=== PATIENT | male | born 1995 | race Caucasian/White ===

== ENCOUNTER 2017-03-01 00:10 | Emergency (ER) | payer SELFPAY ==
[2017-03-01] MEDS ORDERED: Sodium Chloride 0.9% 1,000 ML IV ONE (00:28)
[2017-03-01] MEDS ORDERED: Sodium Chloride 0.9% 10 ML Syringe FLUSH PRN (00:28)
[2017-03-01] MEDS ORDERED: Sodium Chloride 0.9% 2.5 ML Syringe FLUSH PRN (00:28)
[2017-03-01] MEDS ORDERED: Ketorolac 30 MG/ML SDV IVPUSH ONE (00:28)
[2017-03-01] MEDS ORDERED: HYDROmorphone 2 MG/ML Syringe IVPUSH ONE (00:28)
[2017-03-01] MEDS ORDERED: Ondansetron 4 MG/2 ML SDV IVPUSH ONE (00:28)
--- NOTE | 2017-03-01 00:32 | EDM.PDOC ---
ED HPI GENERAL MEDICAL PROBLEM - General Chief Complaint: Flank Pain Stated Complaint: LOWER LEFT BACK PAIN Time Seen by Provider: 03/01/17 00:19 - History of Present Illness INITIAL COMMENTS - FREE TEXT/NARRATIVE: HISTORY AND PHYSICAL: History of present illness: The patient is a 21-year-old male was a history of a congenitally nonfunctional right kidney and presents with onset of left flank pain that started about 9 PM. Patient said it gradually started but he is never had anything like this before the pain has intensified. He says it now radiates to his right mid abdomen but not to his right lower abdomen or to his testicles. He has had no recent trauma no hematuria and no dysuria and no frequency. He has had no upper respiratory symptoms such as cough chest pain or shortness of breath and no fevers or chills. He did get nauseated with the pain and he did have an episode of vomiting. He took Tylenol for the pain and he thinks he may vomited that up. He has had normal bowel movements which are normally loose and diarrhea likely but that is not new or different. The patient has no GI history that he is aware of. He has not had any recent fevers and currently denies a fever. He says the pain is deep and boring. He has had no testicular pain or swelling and no recent trauma to the flank area. Patient had gallstones and a cholecystectomy in the past. The patient absolutely denies any midline back pain or any pain radiating to his buttocks or his legs. He has no lower back pain. Review of systems: As per history of present illness and below otherwise all systems reviewed and negative. Past medical history: As per history of present illness and as reviewed below otherwise noncontributory. Surgical history: As per history of present illness and as reviewed below otherwise noncontributory. Social history: No reported history of drug or alcohol abuse. Family history: As per history of present illness and as reviewed below otherwise noncontributory. Physical exam: Gen.: Well-developed thin man who is nontoxic and vital signs of an reviewed by me. He looks uncomfortable in the room holding his left side. HEENT: Atraumatic, normocephalic, negative for conjunctival pallor or scleral icterus, mucous membranes tacky, throat clear, neck supple, nontender, trachea midline. Lungs: Clear to auscultation, breath sounds equal bilaterally, chest nontender. Heart: S1S2, regular rate and rhythm no overt murmurs Abdomen: Soft, nondistended, there is some mild tenderness on deep palpation in the left mid and left upper abdomen areas without rebound or guarding. Bowel sounds are hypoactive. Negative for masses or hepatosplenomegaly. There is some left costovertebral tenderness. Pelvis: Stable nontender. Genitourinary: Deferred. Rectal: Deferred. Extremities: Atraumatic, negative for cords or calf pain. Neurovascular unremarkable. Neuro: Awake, alert, oriented. Cranial nerves II through XII unremarkable. Cerebellum unremarkable. Motor and sensory unremarkable throughout. Exam nonfocal. Diagnostics: UA urine culture CBC CMP amylase lipase CT scan of the abdomen and pelvis chest x-ray d-dimer Therapeutics: IV, IV fluids, Zofran, Toradol, Dilaudid I discussed the CT and the chest x-ray at length with the tele-radiologist and he says he sees absolutely nothing in that left retroperitoneal or left upper abdominal areas that would be causing the patient any discomfort. He does see some retrocrural lymph nodes that need to be followed up but they would not be causing the patient any discomfort. I discussed this conversation with the patient as well as family. In light of the complete normal workup I've advised close follow-up with primary care and will give him referrals for this. He recently relocated here from [place]. Advised on hydration rest and reasons to return to the ED Impression: Left flank pain with history of nonfunctional right kidney, improved etiology unclear Definitive disposition and diagnosis as appropriate pending reevaluation and review of above. left flank Pain Score (Numeric/FACES): 8 - Related Data Allergies Allergy/AdvReac Type Severity Reaction Status Date / Time amoxicillin Allergy Hives Verified 03/01/17 00:23 Penicillins Allergy Hives Verified 03/01/17 00:23 Home Meds: Home Meds . [No Known Home Meds] 03/01/17 [History] ED ROS GENERAL - Review of Systems Review Of Systems: ROS reveals no pertinent complaints other than HPI. ED EXAM, GENERAL - Physical Exam Exam: See Below (see dictation) Course - Vital Signs Last Recorded V/S: Last Vital Signs Temp 36.3 C 03/01/17 00:13 Pulse 66 03/01/17 01:45 Resp 18 03/01/17 01:45 BP 139/86 03/01/17 01:45 Pulse Ox 98 03/01/17 01:45 - Orders/Labs/Meds Orders: Active Orders 24 hr Category Date Time Status Abdomen Pelvis wo Cont [CT] Stat Exams 03/01/17 00:27 Taken Chest 2V [CR] Stat Exams 03/01/17 02:09 Taken CULTURE URINE [RM] Stat Lab 03/01/17 00:20 Received Sodium Chloride 0.9% [Saline Flush] Med 03/01/17 00:28 Active 10 ml FLUSH ASDIRECTED PRN Sodium Chloride 0.9% [Saline Flush] Med 03/01/17 00:28 Active 2.5 ml FLUSH ASDIRECTED PRN Saline Lock Insert [OM.PC] Stat Oth 03/01/17 00:27 Ordered Medication Orders Sodium Chloride (Saline Flush) 10 ml FLUSH ASDIRECTED PRN PRN Reason: Keep Vein Open Last Admin: 03/01/17 01:01 Dose: 10 ml Sodium Chloride (Saline Flush) 2.5 ml FLUSH ASDIRECTED PRN PRN Reason: Keep Vein Open Last Admin: 03/01/17 01:01 Dose: 2.5 ml Labs: Laboratory Tests 03/01/17 03/01/17 03/01/17 Range/Units 00:15 00:15 00:20 WBC 5.71 (4.0-11.0) K/uL RBC 4.90 (4.50-5.90) M/uL Hgb 15.6 (13.0-17.0) g/dL Hct 45.6 (38.0-50.0) % MCV 93.1 (80.0-98.0) fL MCH 31.8 (27.0-32.0) pg MCHC 34.2 (31.0-37.0) g/dL RDW Std Deviation 43.4 (28.0-62.0) fl RDW Coeff of Viktor 13 (11.0-15.0) % Plt Count 177 (150-400) K/uL MPV 10.40 (7.40-12.00) fL Neut % (Auto) 34.4 L (48.0-80.0) % Lymph % (Auto) 45.5 H (16.0-40.0) % [place] % (Auto) 11.7 (0.0-15.0) % Eos % (Auto) 7.9 H (0.0-7.0) % Baso % (Auto) 0.5 (0.0-1.5) % Neut # (Auto) 2.0 (1.4-5.7) K/uL Lymph # (Auto) 2.6 H (0.6-2.4) K/uL [place] # (Auto) 0.7 (0.0-0.8) K/uL Eos # (Auto) 0.5 (0.0-0.7) K/uL Baso # (Auto) 0.0 (0.0-0.1) K/uL D-Dimer, Quantitative (0.0-0.52) mg/LFEU Sodium 140 (136-146) mmol/L Potassium 4.1 (3.5-5.1) mmol/L Chloride 110 (98-110) mmol/L Carbon Dioxide 23 (21-31) mmol/L BUN 21 (6.0-23.0) mg/dL Creatinine 1.1 (0.6-1.5) mg/dL Est Cr Clr Drug Dosing 110.80 mL/min Estimated GFR (MDRD) > 60.0 ml/min Glucose 92 (60-110) mg/dL Calcium 9.2 (8.8-10.8) mg/dL Total Bilirubin 0.3 (0.1-1.5) mg/dL AST 30 (5-40) IU/L ALT 23 (8-54) IU/L Alkaline Phosphatase 61 (40-150) Total Protein 7.1 (6.0-8.0) g/dL Albumin 4.1 (3.5-5.0) g/dL Globulin 3.0 (2.0-3.5) g/dL Albumin/Globulin Ratio 1.4 (1.3-2.8) Amylase 78 (10-90) U/L Lipase 31 (7-80) U/L Urine Color YELLOW Urine Appearance CLEAR Urine pH 6.5 (5.0-8.0) Ur Specific [place] 1.020 (1.001-1.035) Urine Protein TRACE (NEGATIVE) mg/dL Urine Glucose (UA) NEGATIVE (NEGATIVE) mg/dL Urine Ketones NEGATIVE (NEGATIVE) mg/dL Urine Occult Blood NEGATIVE (NEGATIVE) Urine Nitrite NEGATIVE (NEGATIVE) Urine Bilirubin NEGATIVE (NEGATIVE) Urine Urobilinogen 0.2 (<2.0) EU/dL Ur Leukocyte Esterase NEGATIVE (NEGATIVE) Urine RBC 0-1 (0-2/HPF) Urine WBC 0-1 (0-5/HPF) Ur Epithelial Cells RARE (NONE-FEW) Urine Bacteria RARE (NEGATIVE) 03/01/17 Range/Units 02:15 WBC (4.0-11.0) K/uL RBC (4.50-5.90) M/uL Hgb (13.0-17.0) g/dL Hct (38.0-50.0) % MCV (80.0-98.0) fL MCH (27.0-32.0) pg MCHC (31.0-37.0) g/dL RDW Std Deviation (28.0-62.0) fl RDW Coeff of Viktor (11.0-15.0) % Plt Count (150-400) K/uL MPV (7.40-12.00) fL Neut % (Auto) (48.0-80.0) % Lymph % (Auto) (16.0-40.0) % [place] % (Auto) (0.0-15.0) % Eos % (Auto) (0.0-7.0) % Baso % (Auto) (0.0-1.5) % Neut # (Auto) (1.4-5.7) K/uL Lymph # (Auto) (0.6-2.4) K/uL [place] # (Auto) (0.0-0.8) K/uL Eos # (Auto) (0.0-0.7) K/uL Baso # (Auto) (0.0-0.1) K/uL D-Dimer, Quantitative < 0.19 (0.0-0.52) mg/LFEU Sodium (136-146) mmol/L Potassium (3.5-5.1) mmol/L Chloride (98-110) mmol/L Carbon Dioxide (21-31) mmol/L BUN (6.0-23.0) mg/dL Creatinine (0.6-1.5) mg/dL Est Cr Clr Drug Dosing mL/min Estimated GFR (MDRD) ml/min Glucose (60-110) mg/dL Calcium (8.8-10.8) mg/dL Total Bilirubin (0.1-1.5) mg/dL AST (5-40) IU/L ALT (8-54) IU/L Alkaline Phosphatase (40-150) Total Protein (6.0-8.0) g/dL Albumin (3.5-5.0) g/dL Globulin (2.0-3.5) g/dL Albumin/Globulin Ratio (1.3-2.8) Amylase (10-90) U/L Lipase (7-80) U/L Urine Color Urine Appearance Urine pH (5.0-8.0) Ur Specific [place] (1.001-1.035) Urine Protein (NEGATIVE) mg/dL Urine Glucose (UA) (NEGATIVE) mg/dL Urine Ketones (NEGATIVE) mg/dL Urine Occult Blood (NEGATIVE) Urine Nitrite (NEGATIVE) Urine Bilirubin (NEGATIVE) Urine Urobilinogen (<2.0) EU/dL Ur Leukocyte Esterase (NEGATIVE) Urine RBC (0-2/HPF) Urine WBC (0-5/HPF) Ur Epithelial Cells (NONE-FEW) Urine Bacteria (NEGATIVE) Meds: Medications Generic Name Dose Route Start Last Admin Trade Name Rosa PRN Reason Stop Dose Admin Sodium Chloride 10 ml 03/01/17 00:28 03/01/17 01:01 Saline Flush FLUSH 10 ml ASDIRECTED PRN Administration Keep Vein Open Sodium Chloride 2.5 ml 03/01/17 00:28 03/01/17 01:01 Saline Flush FLUSH 2.5 ml ASDIRECTED PRN Administration Keep Vein Open Discontinued Medications Generic Name Dose Route Start Last Admin Trade Name Rosa PRN Reason Stop Dose Admin Hydromorphone HCl 1 mg 03/01/17 00:28 03/01/17 00:58 Dilaudid IVPUSH 03/01/17 00:29 1 mg ONETIME ONE Administration Hydromorphone HCl 1 mg 03/01/17 01:47 03/01/17 01:51 Dilaudid IVPUSH 03/01/17 01:48 1 mg ONETIME ONE Administration Sodium Chloride 1,000 mls @ 999 mls/hr 03/01/17 00:28 03/01/17 00:50 Normal Saline IV 03/01/17 01:28 999 mls/hr STAT ONE Administration Ketorolac Tromethamine 30 mg 03/01/17 00:28 03/01/17 00:55 Toradol IVPUSH 03/01/17 00:29 30 mg ONETIME ONE Administration Ondansetron HCl 4 mg 03/01/17 00:28 03/01/17 01:02 Zofran IVPUSH 03/01/17 00:29 4 mg ONETIME ONE Administration Departure - Departure Time of Disposition: 02:54 Disposition: Home, Self-Care 01 Condition: Good Clinical Impression: Left flank pain - Discharge Information Referrals: PCP,None [Primary Care Provider] - Forms: ED Department Discharge Additional Instructions: The following information is given to patients seen in the emergency department who are being discharged to home. This information is to outline your options for follow-up care. We provide all patients seen in our emergency department with a follow-up referral. The need for follow-up, as well as the timing and circumstances, are variable depending upon the specifics of your emergency department visit. If you don't have a primary care physician on staff, we will provide you with a referral. We always advise you to contact your personal physician following an emergency department visit to inform them of the circumstance of the visit and for follow-up with them and/or the need for any referrals to a consulting specialist. The emergency department will also refer you to a specialist when appropriate. This referral assures that you have the opportunity for followup care with a specialist. All of these measure are taken in an effort to provide you with optimal care, which includes your followup. Under all circumstances we always encourage you to contact your private physician who remains a resource for coordinating your care. When calling for followup care, please make the office aware that this follow-up is from your recent emergency room visit. If for any reason you are refused follow-up, please contact the [facility] emergency department at and ask to speak to the emergency department charge nurse. [facility] Primary care- Internal Medicine and Family [address] [id number] Please contact our clinic at 8 AM on Thursday morning to get an expedited follow- up in the clinic this week. These push hydration and avoid caffeinated products and return to ER as needed and as discussed. Use pain medications you have been given from [facility], tramadol, as needed as well as [id number] Tylenol. - My Orders Last 24 Hours: My Active Orders 03/01/17 00:20 CULTURE URINE [RM] Stat 03/01/17 00:27 Abdomen Pelvis wo Cont [CT] Stat Saline Lock Insert [OM.PC] Stat 03/01/17 00:28 Sodium Chloride 0.9% [Saline Flush] 10 ml FLUSH ASDIRECTED PRN Sodium Chloride 0.9% [Saline Flush] 2.5 ml FLUSH ASDIRECTED PRN 03/01/17 02:09 Chest 2V [CR] Stat - Assessment/Plan Last 24 Hours: My Active Orders 03/01/17 00:20 CULTURE URINE [RM] Stat 03/01/17 00:27 Abdomen Pelvis wo Cont [CT] Stat Saline Lock Insert [OM.PC] Stat 03/01/17 00:28 Sodium Chloride 0.9% [Saline Flush] 10 ml FLUSH ASDIRECTED PRN Sodium Chloride 0.9% [Saline Flush] 2.5 ml FLUSH ASDIRECTED PRN 03/01/17 02:09 Chest 2V [CR] Stat
[2017-03-01 01:21] LABS: CHLORIDE,CL 110 mmol/L (98-110); SODIUM,NA 140 mmol/L (136-146)
[2017-03-01] MEDS ORDERED: HYDROmorphone 1 MG/ML Syringe IVPUSH ONE (01:47)
--- NOTE | 2017-03-02 16:05 | CT ---
EXAM DATE: 03/01/17 PATIENT'S AGE: 21 Patient: NATALIA CARDOZO Facility: [place], [place] Site . Site : 1995 Study: CT Abdomen/Pelvis [id number] 1:49:30 AM Ordering Physician: Mukul Rodriguez Final Report: INDICATION: Left flank pain. History of cholecystectomy and prior right kidney resection. TECHNIQUE: CT abdomen and pelvis without contrast. COMPARISON: None. FINDINGS: Director Power CT images: Nonobstructive bowel gas pattern. Cholecystectomy surgical clips in the right upper abdominal quadrant. Lower chest: Unremarkable. Liver: Unremarkable. Spleen: Unremarkable. Pancreas: Unremarkable. Gallbladder and bile ducts: Gallbladder surgically absent. No abnormal biliary dilatation. Adrenal glands: Unremarkable. Kidneys: Right kidney is surgically absent. No left hydronephrosis, renal or ureteral calculi. GI tract: Unremarkable. Appendix is normal. Vascular structures: Limited evaluation without IV contrast. Abdominal aorta normal in caliber. Lymph nodes: Unremarkable. Miscellaneous: Unremarkable. No free air or significant free fluid. Pelvic Organs: Unremarkable. Bones: Unremarkable for age. IMPRESSION: 1. Unremarkable noncontrast CT of the abdomen and pelvis. No urinary tract stones, hydronephrosis, or other cause for left flank pain. 2. Gallbladder and right kidney surgically absent. 3. Normal appendix. Dictated by Dl Castellanos MD @ 03/01/2017 2:00:14 AM Dictated by: Dl Castellanos MD @ 03/01/2017 02:00:26 ----- ADDENDUM ----- ADDENDUM: Mildly enlarged retrocrural lymph nodes, reference series 201, image 3. No significant retroperitoneal lymphadenopathy. Findings are nonspecific. Findings discussed with Dr. Gilman on 03/01/2017 at 2:50am. No clear etiology identified for patient`s clinical symptoms. Consider followup CT with contrast in 1 week as clinically warranted. Dictated by Dl Castellanos MD @ Mar 01 2017 2:50AM (Electronic Signature) Report Signed by Proxy. [facility]
--- NOTE | 2017-03-02 16:06 | CR ---
EXAM DATE: 03/01/17 PATIENT'S AGE: 21 Patient: NATALIA CARDOZO Facility: [place], [place] Site . Site : 1995 Study: XRay Chest [id number]/[id number] 2:33:57 AM Ordering Physician: Mukul Rodriguez Final Report: INDICATION: Back pain. TECHNIQUE: Chest radiograph 2 views COMPARISON: None FINDINGS: Cardiovascular and mediastinum: The heart silhouette is normal in size and morphology. The mediastinum is normal in appearance. Lungs and pleural spaces: Both lungs are unremarkable in appearance. No sign of pleural effusion seen. No pneumothorax is identified. Bones and soft tissues: No significant findings. IMPRESSION: 1. No acute cardiopulmonary disease is seen. Dictated by Dl Castellanos MD @ 03/01/2017 2:49:20 AM Dictated by: Dl Castellanos MD @ 03/01/2017 02:49:27 (Electronic Signature) Report Signed by Proxy. [facility]
== END 2017-03-01 03:14 | disposition home or self-care (01) ==
LOC: MW.ED 00:10
DX: R10.12 Left upper quadrant pain (principal); Z88.1 Allergy status to other antibiotic agents; Z88.0 Allergy status to penicillin
CPT/HCPCS: 71020; 74176; 80053; 81001; 82150; 83690; 85025; 85379; 87086; 96361; 96374; 96375; 99284; J1170; J1885; J2405; J7040; 99283

== ENCOUNTER 2017-04-02 13:25 | Emergency (ER) | payer SELFPAY ==
[2017-04-02] MEDS ORDERED: Ondansetron 4 MG/2 ML SDV IVPUSH ONE (13:40)
[2017-04-02] MEDS ORDERED: Ketorolac 30 MG/ML SDV IVPUSH ONE (13:40)
[2017-04-02] MEDS ORDERED: Sodium Chloride 0.9% 1,000 ML IV ONE (13:40)
--- NOTE | 2017-04-02 13:42 | EDM.PDOC ---
ED HPI GENERAL MEDICAL PROBLEM - General Chief Complaint: Flank Pain Stated Complaint: PROBLEMS WITH KIDNEY Time Seen by Provider: 04/02/17 13:41 Source of Information: Reports: Patient - History of Present Illness INITIAL COMMENTS - FREE TEXT/NARRATIVE: HISTORY AND PHYSICAL: History of present illness: [Patient presents with flank pain he rates 8 out of 10 unable to continue work today and presents as above He was seen a month ago with similar symptoms and had full workup see Dr. Oden's note from last month for details on this. 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, the left appears to be fairly healthy other than this mild proteinuria No fever nausea vomiting chills sweats no chest pain shortness breath headache dizziness palpitation no bowel or urine symptoms Patient missed/skipped his follow-up appointment is requesting a week off from work over the holiday due to this pain or illness and all give him 48 hours off for muscle spasm and have him follow-up with primary care for continued evaluation, 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 Past medical history: As per history of present illness and as reviewed below otherwise noncontributory. Surgical history: As per history of present illness and as reviewed below otherwise noncontributory. Social history: No reported history of drug or alcohol abuse. Family history: As per history of present illness and as reviewed below otherwise noncontributory. Physical exam: HEENT: Atraumatic, normocephalic, pupils reactive, negative for conjunctival pallor or scleral icterus, mucous membranes moist, throat clear, neck supple, nontender, trachea midline. Lungs: Clear to auscultation, breath sounds equal bilaterally, chest nontender. Heart: S1S2, regular, negative for clicks, rubs, or JVD. Abdomen: Soft, nondistended, nontender. Negative for masses or hepatosplenomegaly. Negative for costovertebral tenderness. Pelvis: Stable nontender. Genitourinary: Deferred. Rectal: Deferred. Extremities: Atraumatic, negative for cords or calf pain. Neurovascular unremarkable. Neuro: Awake, alert, oriented. Cranial nerves II through XII unremarkable. Cerebellum unremarkable. Motor and sensory unremarkable throughout. Exam nonfocal. Musculoskeletal: Within normal limits other than paraspinous muscle spasm noted on the left lumbar area otherwise unremarkable Diagnostics: [CBC CMP UA culture ] Therapeutics: []1 L normal saline bolus Zofran 8 mg IV Toradol 30 mg IV--Toradol was held while we were awaiting renal function Morphine 2 mg IV provided in the interim Cataflam Flexeril HEENT eyes whichever gains most benefit Impression: Muscle spasm Definitive disposition and diagnosis as appropriate pending reevaluation and review of above. 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 ED EXAM, GENERAL - Physical Exam Exam: See Below Course - Vital Signs Last Recorded V/S: Last Vital Signs Temp 98.1 F 04/02/17 13:34 Pulse 88 04/02/17 13:34 Resp 18 04/02/17 13:34 BP 145/89 H 04/02/17 13:34 Pulse Ox 96 04/02/17 13:34 - Orders/Labs/Meds Orders: Active Orders 24 hr Category Date Time Status Retro[facility] [US] Stat Exams 04/02/17 14:40 Taken CULTURE URINE [RM] Stat Lab 04/02/17 13:45 Received Labs: Laboratory Tests 04/02/17 04/02/17 04/02/17 Range/Units 13:45 13:50 13:50 WBC 6.63 (4.0-11.0) K/uL RBC 4.99 (4.50-5.90) M/uL Hgb 16.4 (13.0-17.0) g/dL Hct 46.8 (38.0-50.0) % MCV 93.8 (80.0-98.0) fL MCH 32.9 H (27.0-32.0) pg MCHC 35.0 (31.0-37.0) g/dL RDW Std Deviation 47.4 (28.0-62.0) fl RDW Coeff of Viktor 14 (11.0-15.0) % Plt Count 173 (150-400) K/uL MPV 11.00 (7.40-12.00) fL Neut % (Auto) 61.0 (48.0-80.0) % Lymph % (Auto) 23.4 (16.0-40.0) % Yates % (Auto) 12.4 (0.0-15.0) % Eos % (Auto) 2.7 (0.0-7.0) % Baso % (Auto) 0.5 (0.0-1.5) % Neut # (Auto) 4.1 (1.4-5.7) K/uL Lymph # (Auto) 1.6 (0.6-2.4) K/uL Yates # (Auto) 0.8 (0.0-0.8) K/uL Eos # (Auto) 0.2 (0.0-0.7) K/uL Baso # (Auto) 0.0 (0.0-0.1) K/uL Nucleated RBC % 0.0 /100WBC Nucleated RBCs # 0 K/uL Sodium 140 (136-146) mmol/L Potassium 4.0 (3.5-5.1) mmol/L Chloride 107 (98-110) mmol/L Carbon Dioxide 24 (21-31) mmol/L BUN 20 (6.0-23.0) mg/dL Creatinine 1.2 (0.6-1.5) mg/dL Est Cr Clr Drug Dosing 104.42 mL/min Estimated GFR (MDRD) > 60.0 ml/min Glucose 96 (60-110) mg/dL Calcium 9.9 (8.8-10.8) mg/dL Total Bilirubin 0.4 (0.1-1.5) mg/dL AST 26 (5-40) IU/L ALT 27 (8-54) IU/L Alkaline Phosphatase 60 (40-150) Total Protein 7.8 (6.0-8.0) g/dL Albumin 4.6 (3.5-5.0) g/dL Globulin 3.2 (2.0-3.5) g/dL Albumin/Globulin Ratio 1.4 (1.3-2.8) Urine Color YELLOW Urine Appearance CLEAR Urine pH 5.5 (5.0-8.0) Ur Specific Dumas >= 1.030 (1.001-1.035) Urine Protein 100 (NEGATIVE) mg/dL Urine Glucose (UA) NEGATIVE (NEGATIVE) mg/dL Urine Ketones NEGATIVE (NEGATIVE) mg/dL Urine Occult Blood NEGATIVE (NEGATIVE) Urine Nitrite NEGATIVE (NEGATIVE) Urine Bilirubin NEGATIVE (NEGATIVE) Urine Urobilinogen 0.2 (<2.0) EU/dL Ur Leukocyte Esterase NEGATIVE (NEGATIVE) Urine RBC NONE SEEN (0-2/HPF) Urine WBC 0-1 (0-5/HPF) Ur Epithelial Cells RARE (NONE-FEW) Urine Bacteria RARE (NEGATIVE) Urine Mucus LIGHT (NONE-MOD) Meds: Medications Discontinued Medications Generic Name Dose Route Start Last Admin Trade Name Freq PRN Reason Stop Dose Admin Sodium Chloride 1,000 mls @ 999 mls/hr 04/02/17 13:40 04/02/17 13:55 Normal Saline IV 04/02/17 14:40 999 mls/hr STAT ONE Administration Ketorolac Tromethamine 30 mg 04/02/17 13:40 04/02/17 15:29 Toradol IVPUSH 04/02/17 13:41 Not Given ONETIME ONE Morphine Sulfate 2 mg 04/02/17 14:01 04/02/17 15:10 Morphine IV 04/02/17 14:02 Not Given ONETIME ONE Morphine Sulfate 2 mg 04/02/17 14:09 04/02/17 14:14 Morphine IVPUSH 04/02/17 14:10 2 mg ONETIME ONE Administration Ondansetron HCl 8 mg 04/02/17 13:40 04/02/17 13:58 Zofran IVPUSH 04/02/17 13:41 8 mg ONETIME ONE Administration Departure - Departure Time of Disposition: 16:07 Disposition: Home, Self-Care 01 Condition: Good Clinical Impression: Spasm of lumbar paraspinous muscle - Discharge Information Referrals: PCP,None [Primary Care Provider] - Forms: ED Department Discharge Additional Instructions: Medication as prescribed Return if symptoms persist or worsen 48 hours off work Heat ice whichever gains most benefit Follow-up with primary care in 2 weeks called number below for appointment follow protein in urine as well as previous lymphadenopathy in the retroperitoneal space [facility] [address] [place] [address] The following information is given to patients seen in the emergency department who are being discharged to home. This information is to outline your options for follow-up care. We provide all patients seen in our emergency department with a follow-up referral. The need for follow-up, as well as the timing and circumstances, are variable depending upon the specifics of your emergency department visit. If you don't have a primary care physician on staff, we will provide you with a referral. We always advise you to contact your personal physician following an emergency department visit to inform them of the circumstance of the visit and for follow-up with them and/or the need for any referrals to a consulting specialist. The emergency department will also refer you to a specialist when appropriate. This referral assures that you have the opportunity for follow-up care with a specialist. All of these measure are taken in an effort to provide you with optimal care, which includes your follow-up. Under all circumstances we always encourage you to contact your private physician who remains a resource for coordinating your care. When calling for follow-up care, please make the office aware that this follow-up is from your recent emergency room visit. If for any reason you are refused follow-up, please contact the [facility] emergency department at and asked to speak to the emergency department charge nurse. - My Orders Last 24 Hours: My Active Orders 04/02/17 13:45 CULTURE URINE [RM] Stat 04/02/17 14:40 [facility] [US] Stat - Assessment/Plan Last 24 Hours: My Active Orders 04/02/17 13:45 CULTURE URINE [RM] Stat 04/02/17 14:40 [facility] [US] Stat
[2017-04-02] MEDS ORDERED: Morphine 10 MG/ML Syringe IV ONE (14:01)
[2017-04-02] MEDS ORDERED: Morphine 2 MG/ML Syringe IVPUSH ONE (14:09)
[2017-04-02 14:27] LABS: CHLORIDE,CL 107 mmol/L (98-110); SODIUM,NA 140 mmol/L (136-146)
--- NOTE | 2017-04-03 16:40 | US ---
EXAM DATE: 04/02/17 PATIENT'S AGE: 21 Patient: NATALIA CARDOZO Facility: [place], [place] Site . Site : 1995 Study: US Abdomen [id number] 3:07:11 PM Ordering Physician: Som Huang Final Report: INDICATION: Left flank pain. Absent right kidney TECHNIQUE: Ultrasound renal bilateral. De La Cruz-scale and color Doppler sonographic images were acquired of the kidneys and urinary bladder. COMPARISON: None available FINDINGS: Right kidney: Not seen in the right renal fossa. Left kidney: 12.3 x 6.8 x 6.0 cm. Normal echotexture and cortex. No masses, stones, or hydronephrosis. Bladder: Incompletely distended, limiting evaluation. No discrete abnormality identified. IMPRESSION: The right kidney is not visualized in the renal fossa. Unremarkable left kidney. Dictated by Jasper Armenta MD @ 04/02/2017 3:58:04 PM Dictated by: Jasper Armenta MD @ 04/02/2017 15:58:07 (Electronic Signature) Report Signed by Proxy. [facility]ENT[facility]ullen
== END 2017-04-02 16:25 | disposition home or self-care (01) ==
LOC: MW.ED 13:25
DX: M62.830 Muscle spasm of back (principal); I10 Essential (primary) hypertension; Z87.891 Personal history of nicotine dependence; Z88.0 Allergy status to penicillin; Z88.1 Allergy status to other antibiotic agents
CPT/HCPCS: 36415; 76775; 80053; 81001; 85025; 87086; 96374; 96375; 99284; J2270; J2405; J7040; 99283

== ENCOUNTER 2021-11-03 01:21 | Inpatient (IN) | payer MEDICAID ==
[2021-11-03] MEDS ORDERED: HYDROmorphone 1 MG/ML Syringe IVPUSH ONE ×2 (01:30→02:36)
[2021-11-03] MEDS ORDERED: Ondansetron 4 MG/2 ML SDV IVPUSH ONE (01:30)
[2021-11-03] MEDS ORDERED: Famotidine 20 MG/2 ML SDV IVPUSH ONE (01:30)
[2021-11-03] MEDS ORDERED: Sodium Chloride 0.9% 1,000 ML IV ONE ×2 (01:30→03:15)
[2021-11-03 02:23] LABS: BLOOD UREA NITROGEN,BUN 10 mg/dL (7.0-18.0); CARBON DIOXIDE,CO2 18.6 mmol/L (21.0-32.0); CHLORIDE,CL 103 mmol/L (98-107); GLUCOSE RANDOM 95 mg/dL (74-106); POTASSIUM,K 3.8 mmol/L (3.5-5.1); SODIUM,NA 136 mmol/L (136-148)
[2021-11-03 02:33] LABS: ESTIMATED GFR 84 mL/min (>60)
[2021-11-03 02:34] LABS: LIPASE 1504 U/L (73-393)
[2021-11-03] MEDS ORDERED: Iopamidol 755 MG/ML 500 ML Multipack Bottle IVPUSH ONE (02:57)
[2021-11-03] MEDS ORDERED: Morphine 2 MG/ML SYRINGE IVPUSH PRN (05:01)
[2021-11-03] MEDS ORDERED: Albuterol/Ipratropium 3.0-0.5 MG/3 ML Neb Soln NEB PRN (05:03)
[2021-11-03] MEDS ORDERED: LORazepam 2 MG/ML SDV IVPUSH PRN (05:03)
[2021-11-03] MEDS: HYDROmorphone 1 MG/ML Syringe IVPUSH PRN ×2 (05:47→08:49)
[2021-11-03] MEDS: Lactated Ringers 1,000 ML IV SCH ×3 (05:48→22:52)
[2021-11-03 07:18] LABS: CARBON DIOXIDE,CO2 23.2 mmol/L (21.0-32.0); POTASSIUM,K 3.9 mmol/L (3.5-5.1)
[2021-11-03] MEDS: Folic Acid 1 MG/0.2 ML UD Syringe IV SCH (08:55)
[2021-11-03] MEDS: Thiamine 200 MG/2 ML MDV IVPUSH SCH (08:57)
[2021-11-03] MEDS ORDERED: Thiamine 100 MG in Sodium Chloride 0.9% 100 ML IV SCH (09:00)
[2021-11-03] MEDS: Heparin Sodium 5,000 Units/ML Vial SUBCUT SCH ×2 (09:03→17:39)
[2021-11-03] MEDS: Ondansetron 4 MG/2 ML SDV IVPUSH PRN ×3 (09:05→19:28)
[2021-11-03] MEDS: HYDROmorphone 2 MG/ML Syringe IVPUSH PRN ×4 (12:14→22:53)
[2021-11-03] MEDS: Nicotine 14 MG/24 Hr Patch TRDERM SCH (13:37)
[2021-11-03] MEDS: Pantoprazole 40 MG in Sodium Chloride 0.9% 10 ML IVPUSH SCH (20:44)
[2021-11-04] MEDS: Heparin Sodium 5,000 Units/ML Vial SUBCUT SCH ×3 (00:04→16:53)
[2021-11-04] MEDS: HYDROmorphone 2 MG/ML Syringe IVPUSH PRN ×3 (03:07→10:14)
[2021-11-04 07:07] LABS: CARBON DIOXIDE,CO2 25.6 mmol/L (21.0-32.0); POTASSIUM,K 4.3 mmol/L (3.5-5.1)
[2021-11-04] MEDS: Lactated Ringers 1,000 ML IV SCH (07:21)
[2021-11-04] MEDS: Thiamine 200 MG/2 ML MDV IVPUSH SCH (08:46)
[2021-11-04] MEDS: Folic Acid 1 MG/0.2 ML UD Syringe IV SCH (08:46)
[2021-11-04] MEDS: Nicotine 14 MG/24 Hr Patch TRDERM SCH (08:47)
[2021-11-04] MEDS ORDERED: Naloxone 0.4 MG/ML SDV IVPUSH PRN (10:16)
[2021-11-04] MEDS ORDERED: HYDROmorphone 2 MG/ML Syringe IVPUSH ONE (10:17)
[2021-11-04] MEDS: Dextrose 5%-Lactated Ringers 1,000 ML IV SCH ×2 (10:37→18:34)
[2021-11-04] MEDS: HYDROmorphone/Normal Saline 10 MG/50 ML PCA IV SCH (11:51)
[2021-11-04] MEDS ORDERED: Magnesium Sulfate/Water 2 GM in Premix Bag 1 BAG IV ONE (14:04)
[2021-11-04 14:25] LABS: BILIRUBIN INDIRECT 0.8
[2021-11-04] MEDS: Pantoprazole 40 MG in Sodium Chloride 0.9% 10 ML IVPUSH SCH (21:57)
[2021-11-05] MEDS: Heparin Sodium 5,000 Units/ML Vial SUBCUT SCH ×3 (01:30→17:40)
[2021-11-05] MEDS: Dextrose 5%-Lactated Ringers 1,000 ML IV SCH ×3 (01:33→19:53)
[2021-11-05] MEDS ORDERED: HYDROmorphone 2 MG/ML Syringe IVPUSH PRN (02:49)
[2021-11-05] MEDS: HYDROmorphone/Normal Saline 10 MG/50 ML PCA IV SCH ×3 (03:07→23:58)
[2021-11-05] MEDS: diphenhydrAMINE 50 MG/ML SDV IVPUSH PRN ×3 (06:37→21:11)
[2021-11-05 07:29] LABS: CARBON DIOXIDE,CO2 26.9 mmol/L (21.0-32.0); POTASSIUM,K 3.8 mmol/L (3.5-5.1)
[2021-11-05] MEDS: Nicotine 21 MG/24 Hr Patch TRDERM SCH (09:03)
[2021-11-05] MEDS: Thiamine 200 MG/2 ML MDV IVPUSH SCH (09:03)
[2021-11-05] MEDS: Folic Acid 1 MG/0.2 ML UD Syringe IV SCH (09:04)
[2021-11-05] MEDS ORDERED: Iopamidol 755 MG/ML 500 ML Multipack Bottle IVPUSH STA (17:29)
[2021-11-05] MEDS: Pantoprazole 40 MG in Sodium Chloride 0.9% 10 ML IVPUSH SCH (21:11)
[2021-11-06] MEDS: Heparin Sodium 5,000 Units/ML Vial SUBCUT SCH ×3 (00:28→17:40)
[2021-11-06] MEDS: diphenhydrAMINE 50 MG/ML SDV IVPUSH PRN ×2 (03:52→09:52)
[2021-11-06] MEDS: Dextrose 5%-Lactated Ringers 1,000 ML IV SCH ×3 (03:53→20:38)
[2021-11-06 07:48] LABS: CARBON DIOXIDE,CO2 28.7 mmol/L (21.0-32.0); POTASSIUM,K 3.8 mmol/L (3.5-5.1)
[2021-11-06] MEDS: HYDROmorphone/Normal Saline 10 MG/50 ML PCA IV SCH (08:00)
[2021-11-06] MEDS: Nicotine 21 MG/24 Hr Patch TRDERM SCH (09:59)
[2021-11-06] MEDS: HYDROmorphone 2 MG/ML Syringe IV PRN ×4 (14:24→23:36)
[2021-11-06] MEDS: oxyCODONE 5 MG Tab PO PRN ×2 (16:24→21:58)
[2021-11-06] MEDS ORDERED: hydrOXYzine HCl 25 MG Tab PO PRN (18:46)
[2021-11-06] MEDS: Pantoprazole 40 MG in Sodium Chloride 0.9% 10 ML IVPUSH SCH (20:38)
[2021-11-07] MEDS: Heparin Sodium 5,000 Units/ML Vial SUBCUT SCH ×2 (01:58→08:53)
[2021-11-07] MEDS: HYDROmorphone 2 MG/ML Syringe IV PRN ×3 (03:11→11:20)
[2021-11-07] MEDS: Dextrose 5%-Lactated Ringers 1,000 ML IV SCH ×2 (04:43→09:14)
[2021-11-07] MEDS: oxyCODONE 5 MG Tab PO PRN ×3 (04:44→13:15)
[2021-11-07 06:57] LABS: CARBON DIOXIDE,CO2 26.6 mmol/L (21.0-32.0); POTASSIUM,K 3.9 mmol/L (3.5-5.1)
[2021-11-07] MEDS: Ondansetron 4 MG/2 ML SDV IVPUSH PRN (07:54)
[2021-11-07] MEDS: Nicotine 21 MG/24 Hr Patch TRDERM SCH (08:54)
[2021-11-07] MEDS ORDERED: NIFEdipine 30 MG Tab.ER PO SCH (10:40)
[2021-11-07] MEDS ORDERED: Magnesium Sulfate/Water 2 GM in Premix Bag 1 BAG IV ONE (12:05)
== END 2021-11-07 16:30 | disposition home or self-care (01) | DRG 439 ==
LOC: MW.ED 01:21 → MW.MS 03:55 → INTOOBSV 11-04 09:48 → OBSVTOIN 11-04 09:48 → MW.MS 11-04 13:34
PROVIDERS: ADMIT Student in an Organized Health Care Education/Training Program; ATTEND Student in an Organized Health Care Education/Training Program
DX: K85.90 Acute pancreatitis without necrosis or infection, unspecified (principal); Q60.3 Renal hypoplasia, unilateral; I10 Essential (primary) hypertension; F17.210 Nicotine dependence, cigarettes, uncomplicated; Z20.822 Contact with and (suspected) exposure to COVID-19; K22.70 Barrett's esophagus without dysplasia; Z90.49 Acquired absence of other specified parts of digestive tract; Z79.899 Other long term (current) drug therapy
CPT/HCPCS: 36415; 74177; 74177-26; 74178; 74178-26; 74181; 74181-26; 76705; 76705-26; 80048; 80053; 80061; 80076; 80307; 81001; 82947; 83605; 83690; 83735; 84100; 85025; 93975; 93975-26; 96361; 96372; 96374; 96375; 96376; 99284; 99285-25; A9270-GY; C9113; G0378; J1170; J1200; J1644; J2060; J2405; J3411; J3475; J3490; J7030; J7120; J7121; Q9967; U0002

== ENCOUNTER 2021-11-15 03:30 | Emergency (ER) | payer MEDICAID ==
[2021-11-15] MEDS ORDERED: Sodium Chloride 0.9% 1,000 ML IV ONE (03:34)
[2021-11-15] MEDS ORDERED: Ondansetron 4 MG/2 ML SDV IVPUSH ONE (03:34)
[2021-11-15] MEDS ORDERED: Sodium Chloride 0.9% 10 ML Syringe FLUSH PRN (03:34)
[2021-11-15] MEDS ORDERED: HYDROmorphone 1 MG/ML Syringe IVPUSH ONE (03:34)
[2021-11-15] MEDS ORDERED: Sodium Chloride 0.9% 2.5 ML Syringe FLUSH PRN (03:34)
[2021-11-15] MEDS ORDERED: Pantoprazole 40 MG in Sodium Chloride 0.9% 10 ML IVPUSH STA (04:07)
[2021-11-15 04:30] LABS: CARBON DIOXIDE,CO2 24.7 mmol/L (21.0-32.0); POTASSIUM,K 3.4 mmol/L (3.5-5.1)
[2021-11-15] MEDS ORDERED: Iopamidol 755 MG/ML 500 ML Multipack Bottle IVPUSH STA (05:41)
[2021-11-15] MEDS ORDERED: traMADol 50 MG Tab PO ONE (06:36)
== END 2021-11-15 06:49 | disposition home or self-care (01) ==
LOC: MW.ED 03:30
DX: K52.9 Noninfective gastroenteritis and colitis, unspecified (principal); K29.70 Gastritis, unspecified, without bleeding; K20.90 Esophagitis, unspecified without bleeding; F10.129 Alcohol abuse with intoxication, unspecified; I10 Essential (primary) hypertension; Z88.0 Allergy status to penicillin; Z79.899 Other long term (current) drug therapy; Z20.822 Contact with and (suspected) exposure to COVID-19; Y90.5 Blood alcohol level of 100-119 mg/100 ml
CPT/HCPCS: 36415; 74177; 80053; 80307; 81003; 83690; 83735; 85025; 87635; 96361; 96374; 96375; 99285; A9270; C9113; J1170; J2405; J3490; J7030; Q9967; U0002

== ENCOUNTER 2022-02-19 14:10 | Observation (INO) | payer MEDICAID ==
[2022-02-19] MEDS ORDERED: HYDROmorphone 1 MG/ML Syringe IVPUSH ONE ×3 (14:40→16:58)
[2022-02-19] MEDS ORDERED: Sodium Chloride 0.9% 1,000 ML IV ONE (14:40)
[2022-02-19] MEDS ORDERED: Ondansetron 4 MG/2 ML SDV IVPUSH ONE (14:40)
[2022-02-19] MEDS ORDERED: diphenhydrAMINE 50 MG/ML SDV IVPUSH ONE (15:04)
[2022-02-19] MEDS ORDERED: Metoclopramide 10 MG/2 ML SDV IVPUSH ONE (15:04)
[2022-02-19 15:19] LABS: BLOOD UREA NITROGEN,BUN 16 mg/dL (7.0-18.0); CARBON DIOXIDE,CO2 28.2 mmol/L (21.0-32.0); CHLORIDE,CL 101 mmol/L (98-107); ESTIMATED GFR 77 mL/min (>60); GLUCOSE RANDOM 110 mg/dL (74-106); LIPASE 88 U/L (73-393); POTASSIUM,K 3.9 mmol/L (3.5-5.1); SODIUM,NA 138 mmol/L (136-148)
[2022-02-19] MEDS ORDERED: Iopamidol 755 MG/ML 500 ML Multipack Bottle IVPUSH ONE (15:39)
[2022-02-19] MEDS ORDERED: HYDROmorphone 2 MG/ML Syringe IVPUSH ONE (18:30)
[2022-02-19] MEDS ORDERED: Famotidine 20 MG/2 ML SDV IVPUSH ONE (18:31)
[2022-02-19] MEDS ORDERED: Nicotine 14 MG/24 Hr Patch TRDERM ONE (19:02)
[2022-02-19 19:47] LABS: CORONAVIRUS COVID-19 NAA NEGATIVE (NEGATIVE); INFLUENZA A NAA NEGATIVE (NEGATIVE); INFLUENZA B NAA NEGATIVE (NEGATIVE)
[2022-02-19] MEDS: HYDROmorphone 1 MG/ML Syringe IVPUSH PRN (21:23)
[2022-02-19] MEDS ORDERED: Sucralfate Suspension 1 GM/10 ML Cup PO ONE (23:02)
[2022-02-19] MEDS: Pantoprazole 40 MG in Sodium Chloride 0.9% 10 ML IVPUSH SCH (23:14)
[2022-02-19] MEDS ORDERED: Sodium Chloride 0.9% 1,000 ML IV SCH (23:15)
[2022-02-20] MEDS ORDERED: Benzonatate 100 MG Cap PO PRN (00:08)
[2022-02-20] MEDS: HYDROmorphone 1 MG/ML Syringe IVPUSH PRN ×3 (00:48→08:25)
[2022-02-20 06:39] LABS: CARBON DIOXIDE,CO2 25.9 mmol/L (21.0-32.0); POTASSIUM,K 4.1 mmol/L (3.5-5.1)
[2022-02-20] MEDS ORDERED: Ondansetron 4 MG/2 ML SDV IVPUSH PRN ×2 (07:18→09:32)
[2022-02-20] MEDS ORDERED: Dextrose 5%-0.9% NaCl 1,000 ML IV SCH (07:30)
[2022-02-20] MEDS ORDERED: Naloxone 0.4 MG/ML SDV IVPUSH PRN (09:32)
[2022-02-20] MEDS ORDERED: HYDROmorphone 1 MG/ML Syringe IVPUSH PRN (09:32)
[2022-02-20] MEDS ORDERED: Metoclopramide 10 MG/2 ML SDV IVPUSH PRN (09:32)
[2022-02-20] MEDS ORDERED: Morphine 2 MG/ML SYRINGE IVPUSH PRN (09:32)
[2022-02-20] MEDS ORDERED: fentaNYL 50 MCG/ML SDV IVPUSH PRN (09:32)
[2022-02-20] MEDS ORDERED: Albuterol 0.083% 2.5 MG/3 ML Neb Soln NEB PRN (09:32)
[2022-02-20] MEDS ORDERED: HYDROmorphone 2 MG/ML Syringe IVPUSH PRN (09:48)
[2022-02-20] MEDS ORDERED: diphenhydrAMINE 50 MG/ML SDV IVPUSH PRN (09:51)
[2022-02-20] MEDS ORDERED: Propofol 200 MG/20 ML SDV ONE (10:29)
[2022-02-20] MEDS ORDERED: Midazolam 1 MG/ML 2 ML SDV ONE (10:29)
[2022-02-20] MEDS ORDERED: fentaNYL 100 MCG/2 ML SDV ONE (10:29)
[2022-02-20] MEDS ORDERED: Atropine 1 MG/ML SDV ONE (11:34)
[2022-02-20] MEDS ORDERED: Glycopyrrolate 0.2 MG/ML SDV ONE (11:34)
[2022-02-20] MEDS ORDERED: Nicotine 14 MG/24 Hr Patch TRDERM SCH (12:30)
[2022-02-20] MEDS: Pantoprazole 40 MG in Sodium Chloride 0.9% 10 ML IVPUSH SCH (13:05)
== END 2022-02-20 14:58 | disposition home or self-care (01) ==
LOC: MW.ED 14:10 → MW.MS 20:20
PROVIDERS: ADMIT Internal Medicine; ATTEND Internal Medicine
DX: K21.00 Gastro-esophageal reflux disease with esophagitis, without bleeding (principal); K31.A0 Gastric intestinal metaplasia, unspecified; K44.9 Diaphragmatic hernia without obstruction or gangrene; K22.70 Barrett's esophagus without dysplasia; I10 Essential (primary) hypertension; F17.210 Nicotine dependence, cigarettes, uncomplicated; Z90.49 Acquired absence of other specified parts of digestive tract; Z79.899 Other long term (current) drug therapy; Z20.822 Contact with and (suspected) exposure to COVID-19; Z98.890 Other specified postprocedural states; Z88.0 Allergy status to penicillin; Z88.1 Allergy status to other antibiotic agents
CPT/HCPCS: 0240U; 36415; 43239; 71045; 74177; 80053; 80307; 82947; 83605; 83690; 83735; 85025; 85610; 85730; 96361; 96374; 96375; 96376; 99285; A9270; C9113; G0378; J0461; J1170; J1200; J2250; J2405; J2704; J2765; J3010; J3490; J7030; J7042; Q9967; 00731; 99217; 99219

== ENCOUNTER 2022-02-20 23:34 | Emergency (ER) | payer MEDICAID ==
[2022-02-20] MEDS ORDERED: HYDROmorphone 1 MG/ML Syringe IVPUSH ONE (23:42)
[2022-02-20] MEDS ORDERED: Ondansetron 4 MG/2 ML SDV IVPUSH ONE (23:42)
[2022-02-20] MEDS ORDERED: Sodium Chloride 0.9% 1,000 ML IV ONE (23:42)
[2022-02-20] MEDS ORDERED: Pantoprazole 40 MG in Sodium Chloride 0.9% 10 ML IVPUSH ONE (23:42)
[2022-02-20] MEDS ORDERED: Alum Hydro/Mag Hydro/Simeth XS 15 ML, Lidocaine 2% 5 ML PO ONE ×2 (23:43)
[2022-02-21 01:03] LABS: CARBON DIOXIDE,CO2 22.2 mmol/L (21.0-32.0); POTASSIUM,K 3.7 mmol/L (3.5-5.1)
[2022-02-21] MEDS ORDERED: Haloperidol Lactate 5 MG/ML SDV IM ONE (01:05)
[2022-02-21] MEDS ORDERED: Sodium Chloride 0.9% 1,000 ML IV ONE (01:13)
== END 2022-02-21 04:51 | disposition home or self-care (01) ==
LOC: MW.ED 23:34
DX: K20.90 Esophagitis, unspecified without bleeding (principal); I10 Essential (primary) hypertension; Z88.0 Allergy status to penicillin; Z87.891 Personal history of nicotine dependence
CPT/HCPCS: 36415; 80053; 83605; 83690; 83735; 85025; 96361; 96372; 96374; 96375; 99284; A9270; C9113; J1170; J1630; J2405; J3490; J7030

== ENCOUNTER 2022-02-24 00:34 | Emergency (ER) | payer MEDICAID ==
[2022-02-24] MEDS ORDERED: Haloperidol Lactate 5 MG/ML SDV IM ONE (00:37)
[2022-02-24] MEDS ORDERED: Sodium Chloride 0.9% 1,000 ML IV ONE (00:37)
[2022-02-24] MEDS ORDERED: HYDROmorphone 1 MG/ML Syringe IVPUSH ONE (00:37)
[2022-02-24] MEDS ORDERED: Pantoprazole 40 MG in Sodium Chloride 0.9% 10 ML IVPUSH ONE (00:47)
[2022-02-24] MEDS ORDERED: Alum Hydro/Mag Hydro/Simeth XS 15 ML, Lidocaine 2% 5 ML PO ONE ×2 (00:48)
[2022-02-24 01:21] LABS: BLOOD UREA NITROGEN,BUN 13 mg/dL (7.0-18.0); CARBON DIOXIDE,CO2 19.9 mmol/L (21.0-32.0); CHLORIDE,CL 107 mmol/L (98-107); GLUCOSE RANDOM 125 mg/dL (74-106); LIPASE 92 U/L (73-393); POTASSIUM,K 3.8 mmol/L (3.5-5.1); SODIUM,NA 146 mmol/L (136-148)
[2022-02-24 01:22] LABS: ESTIMATED GFR 84 mL/min (>60)
== END 2022-02-24 01:15 | disposition left against medical advice (07) ==
LOC: MW.ED 00:34
DX: K20.90 Esophagitis, unspecified without bleeding (principal); F10.10 Alcohol abuse, uncomplicated; I10 Essential (primary) hypertension; Z88.0 Allergy status to penicillin
CPT/HCPCS: 36415; 80053; 80307; 83605; 83690; 85025; 99284

== ENCOUNTER 2022-03-01 14:37 | Emergency (ER) | payer MEDICAID, OTHER ==
[2022-03-01] MEDS ORDERED: Diphtheria,Pertussis(Acell),Tetanus Vaccine 0.5 ML Syringe IM ONE (15:23)
== END 2022-03-01 15:45 | disposition home or self-care (01) ==
LOC: MW.ED 14:37
DX: S61.012A Laceration without foreign body of left thumb without damage to nail, initial encounter (principal); F17.210 Nicotine dependence, cigarettes, uncomplicated; Z23 Encounter for immunization; Z88.0 Allergy status to penicillin; W26.8XXA Contact with other sharp object(s), not elsewhere classified, initial encounter
CPT/HCPCS: 90471; 90715; 99282-25

== ENCOUNTER 2022-03-04 10:45 | Emergency (ER) | payer MEDICAID ==
[2022-03-04] MEDS ORDERED: Sodium Chloride 0.9% 1,000 ML IV ONE ×2 (11:28→13:31)
[2022-03-04] MEDS ORDERED: Sodium Chloride 0.9% 10 ML Syringe FLUSH PRN (11:28)
[2022-03-04] MEDS ORDERED: Sodium Chloride 0.9% 2.5 ML Syringe FLUSH PRN (11:28)
[2022-03-04] MEDS ORDERED: Alum Hydro/Mag Hydro/Simeth XS 15 ML, Lidocaine 2% 5 ML PO ONE ×2 (11:30)
[2022-03-04] MEDS ORDERED: Pantoprazole 40 MG in Sodium Chloride 0.9% 10 ML IVPUSH ONE (11:30)
[2022-03-04 12:28] LABS: CARBON DIOXIDE,CO2 21.2 mmol/L (21.0-32.0); POTASSIUM,K 3.6 mmol/L (3.5-5.1)
== END 2022-03-04 14:17 | disposition left against medical advice (07) ==
LOC: MW.ED 10:45
DX: R10.13 Epigastric pain (principal); I10 Essential (primary) hypertension; Z88.0 Allergy status to penicillin; Z79.899 Other long term (current) drug therapy; Z90.49 Acquired absence of other specified parts of digestive tract
CPT/HCPCS: 36415; 71275; 74177; 80053; 83605; 83690; 85025; 85379; 85610; 96374; 99284; A9270; C9113; J3490; J7030

== ENCOUNTER 2022-03-08 22:13 | Emergency (ER) | payer MEDICAID ==
[2022-03-08] MEDS ORDERED: Sodium Chloride 0.9% 1,000 ML IV ONE (22:16)
[2022-03-08] MEDS ORDERED: Morphine 4 MG/ML Syringe IVPUSH ONE (23:04)
[2022-03-08] MEDS ORDERED: Ondansetron 4 MG/2 ML SDV IVPUSH ONE (23:04)
[2022-03-08 23:50] LABS: CARBON DIOXIDE,CO2 25.1 mmol/L (21.0-32.0); POTASSIUM,K 3.8 mmol/L (3.5-5.1)
[2022-03-09] MEDS ORDERED: Alum Hydro/Mag Hydro/Simeth XS 15 ML, Metoclopramide 5 MG, Lidocaine 2% 5 ML PO ONE ×3
[2022-03-09 00:09] LABS: CORONAVIRUS COVID-19 NAA NEGATIVE (NEGATIVE); INFLUENZA A NAA NEGATIVE (NEGATIVE); INFLUENZA B NAA NEGATIVE (NEGATIVE); RESPIRATORY SYNCYTIAL VIR NAA NEGATIVE (NEGATIVE)
[2022-03-09] MEDS ORDERED: Calcium Carbonate 500 MG Tab.Chew PO ONE (00:32)
[2022-03-09] MEDS ORDERED: Morphine 4 MG/ML Syringe IVPUSH ONE (00:33)
[2022-03-09] MEDS ORDERED: Iopamidol 755 MG/ML 500 ML Multipack Bottle IVPUSH ONE (01:21)
[2022-03-09] MEDS ORDERED: Haloperidol Lactate 5 MG/ML SDV IM ONE (02:23)
== END 2022-03-09 03:05 | disposition home or self-care (01) ==
LOC: MW.ED 22:13
DX: R10.13 Epigastric pain (principal); I10 Essential (primary) hypertension; Z88.0 Allergy status to penicillin; Z20.822 Contact with and (suspected) exposure to COVID-19
CPT/HCPCS: 0241U; 36415; 71045; 74177; 80053; 85025; 86850; 86900; 86901; 96361; 96372; 96374; 96375; 96376; 99284; A9270; J1630; J2270; J2405; J7030; Q9967

== ENCOUNTER 2022-05-28 20:53 | Inpatient (IN) | payer MEDICAID ==
[2022-05-28] MEDS ORDERED: Orphenadrine 60 MG/2 ML Inj IM STA (21:27)
[2022-05-28] MEDS ORDERED: Ketorolac 60 MG/2 ML SDV IM STA (21:27)
[2022-05-28] MEDS ORDERED: Sodium Chloride 0.9% 2.5 ML Syringe FLUSH PRN (22:32)
[2022-05-28] MEDS ORDERED: Sodium Chloride 0.9% 10 ML Syringe FLUSH PRN (22:32)
[2022-05-28 23:04] LABS: CARBON DIOXIDE,CO2 26.1 mmol/L (21.0-32.0); POTASSIUM,K 3.8 mmol/L (3.5-5.1)
[2022-05-28] MEDS ORDERED: Iopamidol 755 MG/ML 500 ML Multipack Bottle IVPUSH STA (23:37)
[2022-05-29] MEDS ORDERED: Heparin Sodium 5,000 Units/ML Vial IVPUSH STA (00:21)
[2022-05-29] MEDS: Heparin Sodium/0.45% NaCl 500 ML IV SCH ×2 (01:22→18:28)
[2022-05-29] MEDS ORDERED: Morphine 4 MG/ML Syringe IVPUSH STA (01:24)
[2022-05-29] MEDS ORDERED: Morphine 4 MG/ML Syringe ONE (01:25)
[2022-05-29 01:29] LABS: CORONAVIRUS COVID-19 NAA NEGATIVE (NEGATIVE); INFLUENZA A NAA NEGATIVE (NEGATIVE); INFLUENZA B NAA NEGATIVE (NEGATIVE); RESPIRATORY SYNCYTIAL VIR NAA NEGATIVE (NEGATIVE)
[2022-05-29] MEDS: oxyCODONE 5 MG Tab PO PRN ×5 (03:46→20:01)
[2022-05-29] MEDS: HYDROmorphone 1 MG/ML Syringe IVPUSH PRN ×5 (07:56→22:35)
[2022-05-29 08:21] LABS: CARBON DIOXIDE,CO2 26.9 mmol/L (21.0-32.0); POTASSIUM,K 3.8 mmol/L (3.5-5.1)
[2022-05-29] MEDS: Nicotine 7 MG/24 Hr Patch TRDERM SCH (11:01)
[2022-05-29] MEDS: Pantoprazole 40 MG Tab.CR PO SCH (13:57)
[2022-05-29] MEDS ORDERED: Cyclobenzaprine 10 MG Tab PO PRN (14:27)
[2022-05-29] MEDS ORDERED: Warfarin 5 MG, Warfarin 2.5 MG PO ONE ×2 (14:45)
[2022-05-29] MEDS ORDERED: Heparin Sodium 5,000 Units/ML Vial IVPUSH ONE ×2 (14:59→20:51)
[2022-05-29] MEDS: Warfarin Sliding Scale PO SCH (15:46)
[2022-05-30] MEDS: Orphenadrine 60 MG/2 ML Inj IM SCH ×3 (00:15→22:01)
[2022-05-30] MEDS: oxyCODONE 5 MG Tab PO PRN ×6 (00:15→23:37)
[2022-05-30] MEDS: HYDROmorphone 1 MG/ML Syringe IVPUSH PRN ×7 (02:05→22:02)
[2022-05-30] MEDS: Pantoprazole 40 MG Tab.CR PO SCH ×2 (06:27→07:41)
[2022-05-30 08:34] LABS: CARBON DIOXIDE,CO2 25.2 mmol/L (21.0-32.0)
[2022-05-30] MEDS: Heparin Sodium/0.45% NaCl 500 ML IV SCH ×2 (08:39→22:15)
[2022-05-30] MEDS: Nicotine 7 MG/24 Hr Patch TRDERM SCH (09:13)
[2022-05-30] MEDS ORDERED: Warfarin 5 MG, Warfarin 2.5 MG PO ONE ×2 (14:30)
[2022-05-30] MEDS ORDERED: Heparin Sodium 5,000 Units/ML Vial IVPUSH ONE (15:25)
[2022-05-30] MEDS: Warfarin Sliding Scale PO SCH (15:42)
[2022-05-31] MEDS: HYDROmorphone 1 MG/ML Syringe IVPUSH PRN ×8 (01:06→22:32)
[2022-05-31] MEDS: oxyCODONE 5 MG Tab PO PRN ×5 (03:53→21:59)
[2022-05-31] MEDS: Pantoprazole 40 MG Tab.CR PO SCH ×2 (06:24→06:31)
[2022-05-31 07:57] LABS: CARBON DIOXIDE,CO2 28.2 mmol/L (21.0-32.0); POTASSIUM,K 4.4 mmol/L (3.5-5.1)
[2022-05-31] MEDS: Nicotine 7 MG/24 Hr Patch TRDERM SCH (08:07)
[2022-05-31] MEDS: Orphenadrine 60 MG/2 ML Inj IM SCH ×2 (11:30→22:00)
[2022-05-31] MEDS: Heparin Sodium/0.45% NaCl 500 ML IV SCH (11:33)
[2022-05-31] MEDS: Warfarin Sliding Scale PO SCH (13:33)
[2022-05-31] MEDS ORDERED: Warfarin 5 MG Tab PO ONE (14:00)
[2022-06-01] MEDS: Heparin Sodium/0.45% NaCl 500 ML IV SCH ×2 (00:45→13:02)
[2022-06-01] MEDS: HYDROmorphone 1 MG/ML Syringe IVPUSH PRN ×7 (01:56→22:08)
[2022-06-01] MEDS: oxyCODONE 5 MG Tab PO PRN ×5 (01:59→20:42)
[2022-06-01] MEDS ORDERED: Heparin Sodium 5,000 Units/ML Vial IVPUSH ONE (02:15)
[2022-06-01 06:13] LABS: POTASSIUM,K 4.5 mmol/L (3.5-5.1)
[2022-06-01] MEDS: Pantoprazole 40 MG Tab.CR PO SCH ×2 (06:14→06:31)
[2022-06-01] MEDS: Nicotine 7 MG/24 Hr Patch TRDERM SCH (08:38)
[2022-06-01] MEDS: Orphenadrine 60 MG/2 ML Inj IM SCH ×2 (11:44→22:15)
[2022-06-01] MEDS ORDERED: Warfarin 5 MG Tab PO ONE (14:00)
[2022-06-01] MEDS: Warfarin Sliding Scale PO SCH (14:10)
[2022-06-02] MEDS: Heparin Sodium/0.45% NaCl 500 ML IV SCH (00:59)
[2022-06-02] MEDS: HYDROmorphone 1 MG/ML Syringe IVPUSH PRN ×3 (01:02→07:35)
[2022-06-02] MEDS: oxyCODONE 5 MG Tab PO PRN ×3 (02:46→10:38)
[2022-06-02 06:12] LABS: CARBON DIOXIDE,CO2 26.9 mmol/L (21.0-32.0); POTASSIUM,K 4.6 mmol/L (3.5-5.1)
[2022-06-02] MEDS: Pantoprazole 40 MG Tab.CR PO SCH (06:36)
[2022-06-02] MEDS: Nicotine 7 MG/24 Hr Patch TRDERM SCH (09:38)
[2022-06-02] MEDS ORDERED: Enoxaparin 150 MG/1 ML Syringe SUBCUT ONE (10:00)
[2022-06-02] MEDS ORDERED: Warfarin 10 MG Tab PO ONE (10:30)
[2022-06-02] MEDS ORDERED: Warfarin 5 MG Tab PO SCH (10:30)
[2022-06-02] MEDS: Orphenadrine 60 MG/2 ML Inj IM SCH (10:41)
== END 2022-06-02 11:30 | disposition home or self-care (01) | DRG 300 ==
LOC: MW.ED 20:53 → MW.ICU 05-29 01:50 → MW.MS 05-29 15:21
PROVIDERS: ADMIT Internal Medicine; ATTEND Internal Medicine
DX: I82.412 Acute embolism and thrombosis of left femoral vein (principal); Q60.3 Renal hypoplasia, unilateral; I10 Essential (primary) hypertension; K21.9 Gastro-esophageal reflux disease without esophagitis; Z79.01 Long term (current) use of anticoagulants; F17.210 Nicotine dependence, cigarettes, uncomplicated; Z20.822 Contact with and (suspected) exposure to COVID-19; K22.70 Barrett's esophagus without dysplasia; K58.9 Irritable bowel syndrome, unspecified; I82.422 Acute embolism and thrombosis of left iliac vein; I82.220 Acute embolism and thrombosis of inferior vena cava; Z88.0 Allergy status to penicillin; Z90.49 Acquired absence of other specified parts of digestive tract; Z98.890 Other specified postprocedural states
CPT/HCPCS: 0241U; 36415; 73502-26-LT; 73502-LT; 74177; 74177-26; 80048; 80053; 81003; 85025; 85610; 85730; 93971-26-LT; 93971-LT; 96365; 96366; 96372; 96375; 99221; 99231; 99238; 99284; 99285-25; A9270-GY; J1170; J1644; J1650; J2270; J2360; J3490; Q9967

== ENCOUNTER 2022-06-09 00:03 | Emergency (ER) | payer SELFPAY ==
[2022-06-09] MEDS ORDERED: HYDROmorphone 1 MG/ML Syringe IVPUSH ONE ×2 (00:22→01:15)
[2022-06-09 01:02] LABS: POTASSIUM,K 3.4 mmol/L (3.5-5.1)
[2022-06-09] MEDS ORDERED: Acetaminophen/oxyCODONE 325-10 MG Tab PO ONE (02:13)
== END 2022-06-09 02:29 | disposition home or self-care (01) ==
LOC: MW.ED 00:03
DX: I82.401 Acute embolism and thrombosis of unspecified deep veins of right lower extremity (principal); I10 Essential (primary) hypertension; Z88.0 Allergy status to penicillin; Z79.899 Other long term (current) drug therapy; Z79.01 Long term (current) use of anticoagulants; Z90.49 Acquired absence of other specified parts of digestive tract
CPT/HCPCS: 36415; 80053; 85025; 85610; 85730; 93971; 96374; 96376; 99284; A9270; J1170

== ENCOUNTER 2022-07-10 13:37 | Emergency (ER) | payer MEDICAID ==
[2022-07-10] MEDS ORDERED: Nicotine 21 MG/24 Hr Patch TRDERM ONE (14:57)
[2022-07-10 15:28] LABS: ACETAMINOPHEN <2.0 ug/mL; BLOOD UREA NITROGEN,BUN 7 mg/dL (7.0-18.0); CARBON DIOXIDE,CO2 24.2 mmol/L (21.0-32.0); CHLORIDE,CL 109 mmol/L (98-107); GLUCOSE RANDOM 86 mg/dL (74-106); SODIUM,NA 147 mmol/L (136-148)
[2022-07-10 15:30] LABS: ESTIMATED GFR 104 mL/min (>60)
[2022-07-10] MEDS ORDERED: Ondansetron 4 MG Tab.DIS PO ONE (19:48)
== END 2022-07-11 01:14 | disposition home or self-care (01) ==
LOC: MW.ED 13:37
DX: F32.A Depression, unspecified (principal); F10.929 Alcohol use, unspecified with intoxication, unspecified; I10 Essential (primary) hypertension; Z88.0 Allergy status to penicillin; Z79.899 Other long term (current) drug therapy; Z20.822 Contact with and (suspected) exposure to COVID-19; Y90.2 Blood alcohol level of 40-59 mg/100 ml
CPT/HCPCS: 36415; 80053; 80143; 80179; 80305; 80307; 81001; 83735; 84439; 84443; 84481; 85025; 87635; 99285; A9270; U0002

== ENCOUNTER 2022-07-12 01:01 | Emergency (ER) | payer MEDICAID ==
[2022-07-12] MEDS ORDERED: Warfarin 5 MG Tab PO ONE (02:09)
[2022-07-12] MEDS ORDERED: HYDROmorphone 1 MG/ML Syringe IM ONE (02:09)
[2022-07-12 02:15] LABS: CARBON DIOXIDE,CO2 23.7 mmol/L (21.0-32.0); POTASSIUM,K 4.2 mmol/L (3.5-5.1)
== END 2022-07-12 02:57 | disposition home or self-care (01) ==
LOC: MW.ED 01:01
DX: I83.92 Asymptomatic varicose veins of left lower extremity (principal); R79.1 Abnormal coagulation profile; I10 Essential (primary) hypertension; Z79.01 Long term (current) use of anticoagulants; Z88.0 Allergy status to penicillin; Z88.1 Allergy status to other antibiotic agents
CPT/HCPCS: 36415; 80053; 85025; 85610; 93971; 96372; 99284; A9270; J1170

== ENCOUNTER 2022-07-23 10:40 | Emergency (ER) | payer MEDICAID, OTHER ==
[2022-07-23] MEDS ORDERED: Sodium Chloride 0.9% 10 ML Syringe FLUSH PRN (11:11)
[2022-07-23] MEDS ORDERED: Sodium Chloride 0.9% 2.5 ML Syringe FLUSH PRN (11:11)
[2022-07-23 11:24] LABS: BASOPHILS PERCENT AUTO 0.5 % (0.0-1.5); EOSINOPHILS ABSOLUTE AUTO 0.4 K/uL (0.0-0.7); EOSINOPHILS PERCENT AUTO 7.8 % (0.0-7.0); HEMOGLOBIN 17.5 g/dL (13.0-17.0); LYMPHOCYTES ABSOLUTE AUTO 1.5 K/uL (0.6-2.4); LYMPHOCYTES PERCENT AUTO 27.2 % (16.0-40.0); MEAN CORPUSCULAR HEMOGLOBIN 34.7 pg (27.0-32.0); MEAN CORPUSCULAR VOLUME 99.2 fL (80.0-98.0); MONOCYTES ABSOLUTE AUTO 0.6 K/uL (0.0-0.8); MONOCYTES PERCENT AUTO 10.7 % (0.0-15.0); NEUTROPHILS PERCENT AUTO 53.8 % (48.0-80.0); NRBC ABSOLUTE 0 K/uL; PLATELET COUNT,PLT 158 K/uL (150-400); RED BLOOD CELL COUNT 5.04 M/uL (4.50-5.90); WHITE BLOOD CELL COUNT,WBC 5.51 K/uL (4.0-11.0)
[2022-07-23 11:36] LABS: INR 1.03 (0.86-1.11)
[2022-07-23 11:53] LABS: ALANINE AMINOTRANSFERASE,ALT 36 IU/L (14-63); ALBUMIN 3.5 g/dL (3.4-5.0); ALKALINE PHOSPHATASE 101 U/L (46-116); ASPARTATE AMNIOTRANSFERASE,AST 32 IU/L (15-37); BILIRUBIN TOTAL 0.6 mg/dL (0.2-1.0); BLOOD UREA NITROGEN,BUN 12 mg/dL (7.0-18.0); CALCIUM 8.8 mg/dL (8.5-10.1); CHLORIDE,CL 102 mmol/L (98-107); CREATININE 1.1 mg/dL (0.8-1.3); GLUCOSE RANDOM 122 mg/dL (74-106); POTASSIUM,K 3.7 mmol/L (3.5-5.1); PROTEIN TOTAL,TP 7.1 g/dL (6.4-8.2); SODIUM,NA 139 mmol/L (136-148)
[2022-07-23 12:02] LABS: ESTIMATED GFR 93 mL/min (>60)
[2022-07-23] MEDS ORDERED: Ondansetron 4 MG/2 ML SDV IVPUSH ONE (12:09)
[2022-07-23] MEDS ORDERED: Warfarin 10 MG Tab PO ONE (12:55)
[2022-07-23] MEDS ORDERED: Sodium Chloride 0.9% 1,000 ML IV ONE (12:55)
[2022-07-23 13:28] LABS: APPEARANCE,URINE CLEAR; BILIRUBIN,URINE NEGATIVE (NEGATIVE); COLOR,URINE YELLOW; GLUCOSE,URINE NEGATIVE (NEGATIVE); KETONES,URINE NEGATIVE (NEGATIVE); LEUKOCYTE ESTERASE,URINE NEGATIVE (NEGATIVE); NITRITE,URINE NEGATIVE (NEGATIVE); OCCULT BLOOD,URINE NEGATIVE (NEGATIVE); PROTEIN,URINE NEGATIVE (NEGATIVE); UROBILINOGEN,URINE 0.2 EU/dL (<2.0)
== END 2022-07-23 14:16 | disposition home or self-care (01) ==
LOC: MW.ED 10:40
DX: R42 Dizziness and giddiness (principal); R11.2 Nausea with vomiting, unspecified; T46.7X5A Adverse effect of peripheral vasodilators, initial encounter; R79.1 Abnormal coagulation profile; I10 Essential (primary) hypertension; F17.210 Nicotine dependence, cigarettes, uncomplicated; Z88.0 Allergy status to penicillin; Z79.01 Long term (current) use of anticoagulants
CPT/HCPCS: 36415; 80053; 81003; 84484; 85025; 85610; 93005; 96361; 96374; 99284; A9270; J2405; J3490; J7030; 93010; 99283

== ENCOUNTER 2022-08-01 21:27 | Emergency (ER) | payer MEDICAID ==
[2022-08-01] MEDS ORDERED: Sodium Chloride 0.9% 10 ML Syringe FLUSH PRN (21:31)
[2022-08-01] MEDS ORDERED: Sodium Chloride 0.9% 2.5 ML Syringe FLUSH PRN (21:31)
[2022-08-01] MEDS ORDERED: Sodium Chloride 0.9% 1,000 ML IV ONE (21:39)
[2022-08-01] MEDS ORDERED: Pantoprazole 40 MG in Sodium Chloride 0.9% 10 ML IVPUSH ONE (21:40)
== END 2022-08-01 21:46 | disposition left against medical advice (07) ==
LOC: MW.ED 21:27
DX: R10.12 Left upper quadrant pain (principal); I10 Essential (primary) hypertension; Z79.899 Other long term (current) drug therapy; Z79.01 Long term (current) use of anticoagulants; Z88.0 Allergy status to penicillin; Z90.49 Acquired absence of other specified parts of digestive tract; Z72.0 Tobacco use
CPT/HCPCS: 93005; 93010; 99284

== ENCOUNTER 2022-08-16 01:27 | Emergency (ER) | payer MEDICAID ==
[2022-08-16] MEDS ORDERED: Sodium Chloride 0.9% 1,000 ML IV ONE (01:55)
[2022-08-16] MEDS ORDERED: Sodium Chloride 0.9% 10 ML Syringe FLUSH PRN (01:55)
[2022-08-16] MEDS ORDERED: Ondansetron 4 MG/2 ML SDV IVPUSH ONE (01:55)
[2022-08-16] MEDS ORDERED: Sodium Chloride 0.9% 2.5 ML Syringe FLUSH PRN (01:55)
[2022-08-16] MEDS ORDERED: fentaNYL 50 MCG/ML SDV IVPUSH ONE ×2 (01:55→03:52)
[2022-08-16] MEDS ORDERED: Alum Hydro/Mag Hydro/Simeth XS 15 ML, Lidocaine 2% 5 ML PO ONE ×2 (01:57)
[2022-08-16 02:09] LABS: BASOPHILS PERCENT AUTO 0.5 % (0.0-1.5); EOSINOPHILS ABSOLUTE AUTO 0.5 K/uL (0.0-0.7); HEMATOCRIT 47.1 % (38.0-50.0); HEMOGLOBIN 16.5 g/dL (13.0-17.0); LYMPHOCYTES ABSOLUTE AUTO 2.2 K/uL (0.6-2.4); MEAN CORPUSCULAR HEMOGLOBIN 34.5 pg (27.0-32.0); MEAN CORPUSCULAR VOLUME 98.5 fL (80.0-98.0); MONOCYTES ABSOLUTE AUTO 0.8 K/uL (0.0-0.8); MONOCYTES PERCENT AUTO 10.5 % (0.0-15.0); NEUTROPHILS ABSOLUTE AUTO 4.1 K/uL (1.4-5.7); NRBC ABSOLUTE 0 K/uL; PLATELET COUNT,PLT 202 K/uL (150-400); RED BLOOD CELL COUNT 4.78 M/uL (4.50-5.90); WHITE BLOOD CELL COUNT,WBC 7.55 K/uL (4.0-11.0)
[2022-08-16 02:39] LABS: A/G RATIO 0.9 (0.9-1.6); ALBUMIN 3.4 g/dL (3.4-5.0); BILIRUBIN TOTAL 0.3 mg/dL (0.2-1.0); CALCIUM 8.3 mg/dL (8.5-10.1); CREATININE 1.1 mg/dL (0.8-1.3); EST CRCL DRUG DOSING (CG) 108.76 mL/min; POTASSIUM,K 3.5 mmol/L (3.5-5.1)
== END 2022-08-16 04:05 | disposition home or self-care (01) ==
LOC: MW.ED 01:27
DX: K20.90 Esophagitis, unspecified without bleeding (principal); K22.70 Barrett's esophagus without dysplasia; I10 Essential (primary) hypertension; Z88.0 Allergy status to penicillin; Z79.01 Long term (current) use of anticoagulants
CPT/HCPCS: 36415; 74176; 80053; 80307; 83690; 85025; 96361; 96374; 96375; 96376; 99285; A9270; J2405; J3010; J7030; 99283

== ENCOUNTER 2022-08-23 00:02 | Observation (INO) | payer MEDICAID ==
[2022-08-23] MEDS ORDERED: Famotidine 20 MG/2 ML SDV IVPUSH ONE (00:03)
[2022-08-23] MEDS ORDERED: HYDROmorphone 1 MG/ML Syringe IVPUSH ONE ×3 (00:03→02:43)
[2022-08-23] MEDS ORDERED: Sodium Chloride 0.9% 1,000 ML IV ONE ×3 (00:03→03:35)
[2022-08-23] MEDS ORDERED: Ondansetron 4 MG/2 ML SDV IVPUSH ONE (00:03)
[2022-08-23 00:12] LABS: BASOPHILS ABSOLUTE AUTO 0.1 K/uL (0.0-0.1); BASOPHILS PERCENT AUTO 0.6 % (0.0-1.5); EOSINOPHILS ABSOLUTE AUTO 0.5 K/uL (0.0-0.7); EOSINOPHILS PERCENT AUTO 5.8 % (0.0-7.0); HEMATOCRIT 53.3 % (38.0-50.0); HEMOGLOBIN 18.8 g/dL (13.0-17.0); LYMPHOCYTES ABSOLUTE AUTO 3.5 K/uL (0.6-2.4); LYMPHOCYTES PERCENT AUTO 39.6 % (16.0-40.0); MEAN CORPUSCULAR HEMOGLOBIN 34.7 pg (27.0-32.0); MEAN CORPUSCULAR HGB CONC 35.3 g/dL (31.0-37.0); MEAN CORPUSCULAR VOLUME 98.3 fL (80.0-98.0); MONOCYTES ABSOLUTE AUTO 0.8 K/uL (0.0-0.8); MONOCYTES PERCENT AUTO 8.6 % (0.0-15.0); NEUTROPHILS PERCENT AUTO 45.4 % (48.0-80.0); NRBC ABSOLUTE 0 K/uL; PLATELET COUNT,PLT 289 K/uL (150-400); RED BLOOD CELL COUNT 5.42 M/uL (4.50-5.90); WHITE BLOOD CELL COUNT,WBC 8.91 K/uL (4.0-11.0)
[2022-08-23] MEDS ORDERED: Iopamidol 755 MG/ML 500 ML Multipack Bottle IVPUSH ONE ×2 (00:16→02:11)
[2022-08-23 00:23] LABS: INR < 0.93 (0.86-1.11)
[2022-08-23 00:46] LABS: A/G RATIO 0.9 (0.9-1.6); ALANINE AMINOTRANSFERASE,ALT 29 IU/L (14-63); ALKALINE PHOSPHATASE 109 U/L (46-116); ASPARTATE AMNIOTRANSFERASE,AST 21 IU/L (15-37); BILIRUBIN TOTAL 0.2 mg/dL (0.2-1.0); BLOOD UREA NITROGEN,BUN 16 mg/dL (7.0-18.0); CALCIUM 9.5 mg/dL (8.5-10.1); CARBON DIOXIDE,CO2 17.7 mmol/L (21.0-32.0); CHLORIDE,CL 103 mmol/L (98-107); CREATININE 1.4 mg/dL (0.8-1.3); EST CRCL DRUG DOSING (CG) 85.45 mL/min; ETHANOL BLOOD MEDICAL 283 mg/dL; GLUCOSE RANDOM 105 mg/dL (74-106); LIPASE 79 U/L (73-393); MAGNESIUM 2.3 mg/dL (1.8-2.4); POTASSIUM,K 4.4 mmol/L (3.5-5.1); PROTEIN TOTAL,TP 8.3 g/dL (6.4-8.2); SODIUM,NA 141 mmol/L (136-148)
[2022-08-23] MEDS ORDERED: Alum Hydro/Mag Hydro/Simeth XS 15 ML, Lidocaine 2% 5 ML PO ONE ×2 (00:47)
[2022-08-23] MEDS ORDERED: Sucralfate Suspension 1 GM/10 ML Cup PO ONE (00:47)
[2022-08-23 00:49] LABS: ESTIMATED GFR 70 mL/min (>60)
[2022-08-23 01:02] LABS: LACTIC ACID 3.3 mmol/L (0.4-2.0)
[2022-08-23] MEDS ORDERED: diphenhydrAMINE 50 MG/ML SDV IVPUSH ONE (03:36)
[2022-08-23] MEDS ORDERED: Metoclopramide 10 MG/2 ML SDV IVPUSH ONE (03:36)
[2022-08-23] MEDS ORDERED: HYDROmorphone 1 MG/ML Syringe IVPUSH PRN (06:27)
[2022-08-23] MEDS: Ondansetron 4 MG/2 ML SDV IVPUSH PRN ×2 (07:37→17:06)
[2022-08-23] MEDS ORDERED: LORazepam 2 MG/ML SDV IVPUSH PRN (09:11)
[2022-08-23] MEDS ORDERED: Warfarin 5 MG Tab PO SCH (09:30)
[2022-08-23] MEDS: oxyCODONE 5 MG Tab PO PRN ×2 (09:38→17:12)
[2022-08-23] MEDS: Escitalopram 10 MG Tab PO SCH (09:40)
[2022-08-23] MEDS: Folic Acid 1 MG/0.2 ML UD Syringe IV SCH (09:40)
[2022-08-23] MEDS: Pantoprazole 40 MG in Sodium Chloride 0.9% 10 ML IVPUSH SCH (09:40)
[2022-08-23] MEDS: Thiamine 200 MG/2 ML MDV IVPUSH SCH (09:40)
[2022-08-23] MEDS: Sodium Chloride 0.9% 1,000 ML IV SCH ×2 (09:47→17:13)
[2022-08-23 10:00] LABS: CALCIUM 7.4 mg/dL (8.5-10.1); CARBON DIOXIDE,CO2 25.3 mmol/L (21.0-32.0); CREATININE 1.1 mg/dL (0.8-1.3); EST CRCL DRUG DOSING (CG) 108.76 mL/min; POTASSIUM,K 4.2 mmol/L (3.5-5.1)
[2022-08-23] MEDS: HYDROmorphone 1 MG/ML Syringe IVPUSH PRN ×4 (11:25→23:45)
[2022-08-23] MEDS: Nicotine 7 MG/24 Hr Patch TRDERM SCH (11:29)
[2022-08-23] MEDS: Acetaminophen 325 MG Tab PO PRN ×2 (13:24→22:29)
[2022-08-23] MEDS ORDERED: Warfarin 10 MG Tab PO ONE (13:45)
[2022-08-23] MEDS ORDERED: Warfarin Sliding Scale PO SCH (14:00)
[2022-08-24] MEDS: Sodium Chloride 0.9% 1,000 ML IV SCH ×2 (01:23→09:38)
[2022-08-24] MEDS: oxyCODONE 5 MG Tab PO PRN ×2 (01:25→09:37)
[2022-08-24] MEDS: HYDROmorphone 1 MG/ML Syringe IVPUSH PRN ×3 (03:51→12:31)
[2022-08-24 05:30] LABS: BASOPHILS PERCENT AUTO 0.5 % (0.0-1.5); EOSINOPHILS ABSOLUTE AUTO 0.4 K/uL (0.0-0.7); EOSINOPHILS PERCENT AUTO 5.8 % (0.0-7.0); HEMATOCRIT 46.3 % (38.0-50.0); HEMOGLOBIN 15.5 g/dL (13.0-17.0); LYMPHOCYTES ABSOLUTE AUTO 2.3 K/uL (0.6-2.4); LYMPHOCYTES PERCENT AUTO 35.4 % (16.0-40.0); MEAN CORPUSCULAR HEMOGLOBIN 33.2 pg (27.0-32.0); MEAN CORPUSCULAR HGB CONC 33.5 g/dL (31.0-37.0); MEAN CORPUSCULAR VOLUME 99.1 fL (80.0-98.0); MONOCYTES ABSOLUTE AUTO 0.6 K/uL (0.0-0.8); MONOCYTES PERCENT AUTO 9.6 % (0.0-15.0); NEUTROPHILS ABSOLUTE AUTO 3.2 K/uL (1.4-5.7); NEUTROPHILS PERCENT AUTO 48.7 % (48.0-80.0); NRBC ABSOLUTE 0 K/uL; PLATELET COUNT,PLT 208 K/uL (150-400); RED BLOOD CELL COUNT 4.67 M/uL (4.50-5.90); WHITE BLOOD CELL COUNT,WBC 6.53 K/uL (4.0-11.0)
[2022-08-24 05:49] LABS: CALCIUM 7.9 mg/dL (8.5-10.1); CARBON DIOXIDE,CO2 26.6 mmol/L (21.0-32.0); CREATININE 1.2 mg/dL (0.8-1.3); EST CRCL DRUG DOSING (CG) 99.69 mL/min; POTASSIUM,K 4.4 mmol/L (3.5-5.1)
[2022-08-24 05:51] LABS: INR < 0.93 (0.86-1.11)
[2022-08-24] MEDS: Pantoprazole 40 MG in Sodium Chloride 0.9% 10 ML IVPUSH SCH (06:48)
[2022-08-24] MEDS: Folic Acid 1 MG/0.2 ML UD Syringe IV SCH (08:25)
[2022-08-24] MEDS: Ondansetron 4 MG/2 ML SDV IVPUSH PRN (08:25)
[2022-08-24] MEDS: Escitalopram 10 MG Tab PO SCH (08:26)
[2022-08-24] MEDS: Nicotine 7 MG/24 Hr Patch TRDERM SCH (08:26)
[2022-08-24] MEDS: Thiamine 200 MG/2 ML MDV IVPUSH SCH (08:26)
[2022-08-24] MEDS ORDERED: Warfarin 10 MG Tab PO ONE (14:00)
== END 2022-08-24 13:55 | disposition home or self-care (01) ==
LOC: MW.ED 00:02 → MW.MS 04:29
PROVIDERS: ADMIT Internal Medicine; ATTEND Internal Medicine
DX: K29.20 Alcoholic gastritis without bleeding (principal); N28.9 Disorder of kidney and ureter, unspecified; R79.1 Abnormal coagulation profile; I10 Essential (primary) hypertension; K21.00 Gastro-esophageal reflux disease with esophagitis, without bleeding; F41.9 Anxiety disorder, unspecified; F32.A Depression, unspecified; F17.210 Nicotine dependence, cigarettes, uncomplicated; F10.10 Alcohol abuse, uncomplicated; I82.409 Acute embolism and thrombosis of unspecified deep veins of unspecified lower extremity; Z90.49 Acquired absence of other specified parts of digestive tract; Y90.4 Blood alcohol level of 80-99 mg/100 ml; Z79.899 Other long term (current) drug therapy; Z79.01 Long term (current) use of anticoagulants; Z88.0 Allergy status to penicillin
CPT/HCPCS: 36415; 71275; 74177; 80048; 80053; 80307; 83605; 83690; 83735; 84484; 85025; 85610; 93005; 96361; 96374; 96375; 96376; 99285; A9270; C9113; J1170; J1200; J2405; J2765; J3411; J3490; J7030; Q9967; 93010; 99283; G0378

== ENCOUNTER 2022-08-25 16:24 | Emergency (ER) | payer MEDICAID ==
[2022-08-25 16:35] LABS: BASOPHILS ABSOLUTE AUTO 0.1 K/uL (0.0-0.1); BASOPHILS PERCENT AUTO 0.9 % (0.0-1.5); EOSINOPHILS ABSOLUTE AUTO 0.6 K/uL (0.0-0.7); EOSINOPHILS PERCENT AUTO 8.7 % (0.0-7.0); HEMATOCRIT 50.1 % (38.0-50.0); HEMOGLOBIN 17.3 g/dL (13.0-17.0); LYMPHOCYTES ABSOLUTE AUTO 2.2 K/uL (0.6-2.4); LYMPHOCYTES PERCENT AUTO 33.6 % (16.0-40.0); MEAN CORPUSCULAR HGB CONC 34.5 g/dL (31.0-37.0); MEAN CORPUSCULAR VOLUME 98.4 fL (80.0-98.0); MONOCYTES ABSOLUTE AUTO 0.6 K/uL (0.0-0.8); MONOCYTES PERCENT AUTO 8.5 % (0.0-15.0); NEUTROPHILS ABSOLUTE AUTO 3.1 K/uL (1.4-5.7); NEUTROPHILS PERCENT AUTO 48.3 % (48.0-80.0); NRBC ABSOLUTE 0 K/uL; PLATELET COUNT,PLT 269 K/uL (150-400); RED BLOOD CELL COUNT 5.09 M/uL (4.50-5.90); WHITE BLOOD CELL COUNT,WBC 6.46 K/uL (4.0-11.0)
[2022-08-25 17:00] LABS: A/G RATIO 0.9 (0.9-1.6); ALBUMIN 3.5 g/dL (3.4-5.0); BILIRUBIN TOTAL 0.1 mg/dL (0.2-1.0); CALCIUM 9.2 mg/dL (8.5-10.1); CARBON DIOXIDE,CO2 17.4 mmol/L (21.0-32.0); CREATININE 1.5 mg/dL (0.8-1.3); POTASSIUM,K 4.1 mmol/L (3.5-5.1); PROTEIN TOTAL,TP 7.5 g/dL (6.4-8.2)
[2022-08-25 17:05] LABS: EST CRCL DRUG DOSING (CG) 75.03 mL/min
[2022-08-25 17:25] LABS: AMPHETAMINES SCREEN, URINE NEGATIVE (CUTOFF=500); BARBITURATE SCREEN,URINE NEGATIVE (CUTOFF=200); BENZODIAZEPINES SCREEN,URINE NEGATIVE (CUTOFF=150); BUPRENORPHINE SCREEN,URINE NEGATIVE (CUTOFF=10); METHADONE SCREEN, URINE NEGATIVE (CUTOFF=200); METHAMPHETAMINES SCREEN, URINE NEGATIVE (CUTOFF=500); OXYCODONE SCREEN,URINE NEGATIVE (CUT0FF=100); PCP SCREEN,URINE NEGATIVE (CUTOFF=25); PROPOXYPHENE SCREEN,URINE NEGATIVE (CUTOFF=300); THC SCREEN,URINE 20 NG/ML NEGATIVE (CUTOFF=50)
[2022-08-25] MEDS: Lactated Ringers 1,000 ML IV SCH ×2 (17:46→19:32)
[2022-08-25 17:53] LABS: LACTIC ACID 3.4 mmol/L (0.4-2.0)
[2022-08-25 18:24] LABS: CORONAVIRUS COVID-19 NAA NEGATIVE (NEGATIVE); INFLUENZA A NAA NEGATIVE (NEGATIVE); INFLUENZA B NAA NEGATIVE (NEGATIVE); RESPIRATORY SYNCYTIAL VIR NAA NEGATIVE (NEGATIVE)
[2022-08-25] MEDS ORDERED: Alum Hydro/Mag Hydro/Simeth XS 15 ML, Lidocaine 2% 5 ML PO ONE ×2 (18:32)
[2022-08-25] MEDS ORDERED: Pantoprazole 40 MG in Sodium Chloride 0.9% 10 ML IVPUSH ONE (18:32)
[2022-08-25] MEDS ORDERED: Famotidine 20 MG/2 ML SDV IVPUSH ONE (18:32)
[2022-08-25] MEDS ORDERED: Lactated Ringers 1,000 ML IV SCH (19:00)
[2022-08-25] MEDS ORDERED: diphenhydrAMINE 50 MG/ML SDV IVPUSH ONE (19:02)
== END 2022-08-25 22:59 | disposition home or self-care (01) ==
LOC: MW.ED 16:24
DX: K20.90 Esophagitis, unspecified without bleeding (principal); I10 Essential (primary) hypertension; K21.9 Gastro-esophageal reflux disease without esophagitis; Z20.822 Contact with and (suspected) exposure to COVID-19; Z88.0 Allergy status to penicillin; Z79.01 Long term (current) use of anticoagulants
CPT/HCPCS: 0241U; 36415; 70450; 70496; 70498; 80053; 80305; 80307; 83605; 83690; 83735; 84484; 85025; 86850; 86900; 86901; 93005; 96361; 96374; 96375; 99285; A9270; C9113; J1200; J3490; J7120

== ENCOUNTER 2022-09-03 16:23 | Emergency (ER) | payer BC, MEDICAID ==
[2022-09-03] MEDS ORDERED: Sodium Chloride 0.9% 1,000 ML IV ONE (16:28)
[2022-09-03 16:36] LABS: BASOPHILS ABSOLUTE AUTO 0.1 K/uL (0.0-0.1); EOSINOPHILS ABSOLUTE AUTO 0.6 K/uL (0.0-0.7); EOSINOPHILS PERCENT AUTO 8.7 % (0.0-7.0); HEMATOCRIT 49.1 % (38.0-50.0); HEMOGLOBIN 17.2 g/dL (13.0-17.0); LYMPHOCYTES ABSOLUTE AUTO 2.5 K/uL (0.6-2.4); LYMPHOCYTES PERCENT AUTO 36.5 % (16.0-40.0); MEAN CORPUSCULAR HEMOGLOBIN 34.5 pg (27.0-32.0); MEAN CORPUSCULAR VOLUME 98.6 fL (80.0-98.0); MONOCYTES ABSOLUTE AUTO 0.6 K/uL (0.0-0.8); MONOCYTES PERCENT AUTO 8.5 % (0.0-15.0); NEUTROPHILS ABSOLUTE AUTO 3.1 K/uL (1.4-5.7); NEUTROPHILS PERCENT AUTO 45.3 % (48.0-80.0); NRBC ABSOLUTE 0 K/uL; PLATELET COUNT,PLT 230 K/uL (150-400); RED BLOOD CELL COUNT 4.98 M/uL (4.50-5.90); WHITE BLOOD CELL COUNT,WBC 6.93 K/uL (4.0-11.0)
[2022-09-03 16:48] LABS: INR 0.97 (0.86-1.11)
[2022-09-03 17:07] LABS: A/G RATIO 0.9 (0.9-1.6); ACETAMINOPHEN <2.0 ug/mL; ALANINE AMINOTRANSFERASE,ALT 27 IU/L (14-63); ALBUMIN 3.5 g/dL (3.4-5.0); ALKALINE PHOSPHATASE 85 U/L (46-116); ASPARTATE AMNIOTRANSFERASE,AST 25 IU/L (15-37); BILIRUBIN TOTAL 0.2 mg/dL (0.2-1.0); BLOOD UREA NITROGEN,BUN 8 mg/dL (7.0-18.0); CALCIUM 8.2 mg/dL (8.5-10.1); CHLORIDE,CL 110 mmol/L (98-107); CREATININE 1.1 mg/dL (0.8-1.3); EST CRCL DRUG DOSING (CG) 105.53 mL/min; ETHANOL BLOOD MEDICAL 284 mg/dL; GLUCOSE RANDOM 83 mg/dL (74-106); MAGNESIUM 2.1 mg/dL (1.8-2.4); PROTEIN TOTAL,TP 7.2 g/dL (6.4-8.2); SALICYLATE 1.9 mg/dL (0.0-20.0); SODIUM,NA 144 mmol/L (136-148); TSH ULTRASENSITIVE 0.55 uIU/mL (0.36-3.74)
[2022-09-03 17:09] LABS: ESTIMATED GFR 93 mL/min (>60)
== END 2022-09-03 17:04 | disposition left against medical advice (07) ==
LOC: MW.ED 16:23
DX: R06.02 Shortness of breath (principal); Z53.29 Procedure and treatment not carried out because of patient's decision for other reasons; I10 Essential (primary) hypertension; Z88.0 Allergy status to penicillin; Z79.01 Long term (current) use of anticoagulants; Z77.22 Contact with and (suspected) exposure to environmental tobacco smoke (acute) (chronic)
CPT/HCPCS: 36415; 71045; 80053; 80143; 80179; 80307; 82947; 83735; 84443; 84484; 85025; 85610; 99285; J7030; 93005

== ENCOUNTER 2022-09-05 02:04 | Emergency (ER) | payer MEDICAID ==
[2022-09-05] MEDS ORDERED: Sodium Chloride 0.9% 1,000 ML IV ONE (02:22)
[2022-09-05] MEDS ORDERED: Sodium Chloride 0.9% 10 ML Syringe FLUSH PRN (02:22)
[2022-09-05] MEDS ORDERED: Sodium Chloride 0.9% 2.5 ML Syringe FLUSH PRN (02:22)
[2022-09-05] MEDS ORDERED: Aluminum Hydroxide/Magnesium Hydroxide/Simethicone XS Susp 30 ML Cup PO ONE (02:23)
[2022-09-05 02:30] LABS: BASOPHILS ABSOLUTE AUTO 0.1 K/uL (0.0-0.1); BASOPHILS PERCENT AUTO 1.3 % (0.0-1.5); EOSINOPHILS ABSOLUTE AUTO 0.5 K/uL (0.0-0.7); EOSINOPHILS PERCENT AUTO 8.2 % (0.0-7.0); HEMATOCRIT 48.6 % (38.0-50.0); LYMPHOCYTES ABSOLUTE AUTO 2.4 K/uL (0.6-2.4); LYMPHOCYTES PERCENT AUTO 39.8 % (16.0-40.0); MEAN CORPUSCULAR HEMOGLOBIN 34.3 pg (27.0-32.0); MONOCYTES ABSOLUTE AUTO 0.5 K/uL (0.0-0.8); MONOCYTES PERCENT AUTO 8.1 % (0.0-15.0); NEUTROPHILS ABSOLUTE AUTO 2.5 K/uL (1.4-5.7); NEUTROPHILS PERCENT AUTO 42.6 % (48.0-80.0); NRBC ABSOLUTE 0 K/uL; PLATELET COUNT,PLT 237 K/uL (150-400); RED BLOOD CELL COUNT 4.96 M/uL (4.50-5.90); WHITE BLOOD CELL COUNT,WBC 5.95 K/uL (4.0-11.0)
[2022-09-05 02:37] LABS: INR 0.95 (0.86-1.11)
[2022-09-05 02:43] LABS: LACTIC ACID 1.5 mmol/L (0.4-2.0)
[2022-09-05 02:51] LABS: ALANINE AMINOTRANSFERASE,ALT 29 IU/L (14-63); ALBUMIN 3.5 g/dL (3.4-5.0); ALKALINE PHOSPHATASE 91 U/L (46-116); ASPARTATE AMNIOTRANSFERASE,AST 26 IU/L (15-37); BILIRUBIN TOTAL 0.2 mg/dL (0.2-1.0); BLOOD UREA NITROGEN,BUN 14 mg/dL (7.0-18.0); CALCIUM 8.2 mg/dL (8.5-10.1); CARBON DIOXIDE,CO2 24.4 mmol/L (21.0-32.0); CHLORIDE,CL 106 mmol/L (98-107); CREATININE 1.2 mg/dL (0.8-1.3); EST CRCL DRUG DOSING (CG) 99.69 mL/min; ETHANOL BLOOD MEDICAL 253 mg/dL; GLUCOSE RANDOM 103 mg/dL (74-106); POTASSIUM,K 3.9 mmol/L (3.5-5.1); PROTEIN TOTAL,TP 7.1 g/dL (6.4-8.2); SODIUM,NA 144 mmol/L (136-148)
[2022-09-05 02:54] LABS: ESTIMATED GFR 84 mL/min (>60)
[2022-09-05] MEDS ORDERED: Iopamidol 755 MG/ML 500 ML Multipack Bottle IVPUSH STA (04:04)
[2022-09-05] MEDS ORDERED: Enoxaparin 100 MG/1 ML Syringe SUBCUT ONE (05:04)
[2022-09-05 05:42] LABS: APPEARANCE,URINE CLEAR; BILIRUBIN,URINE NEGATIVE (NEGATIVE); COLOR,URINE YELLOW; GLUCOSE,URINE NEGATIVE (NEGATIVE); KETONES,URINE NEGATIVE (NEGATIVE); LEUKOCYTE ESTERASE,URINE NEGATIVE (NEGATIVE); NITRITE,URINE NEGATIVE (NEGATIVE); OCCULT BLOOD,URINE TRACE-INTACT (NEGATIVE); PROTEIN,URINE TRACE mg/dL (NEGATIVE); UROBILINOGEN,URINE 0.2 EU/dL (<2.0)
[2022-09-05 05:52] LABS: AMPHETAMINES SCREEN, URINE NEGATIVE (CUTOFF=500); BARBITURATE SCREEN,URINE NEGATIVE (CUTOFF=200); BENZODIAZEPINES SCREEN,URINE NEGATIVE (CUTOFF=150); BUPRENORPHINE SCREEN,URINE NEGATIVE (CUTOFF=10); METHADONE SCREEN, URINE NEGATIVE (CUTOFF=200); METHAMPHETAMINES SCREEN, URINE NEGATIVE (CUTOFF=500); OXYCODONE SCREEN,URINE NEGATIVE (CUT0FF=100); PCP SCREEN,URINE NEGATIVE (CUTOFF=25); PROPOXYPHENE SCREEN,URINE NEGATIVE (CUTOFF=300); THC SCREEN,URINE 20 NG/ML NEGATIVE (CUTOFF=50)
[2022-09-05 05:55] LABS: BACTERIA,URINE FEW (NEGATIVE); EPITHELIAL CELLS,URINE RARE (NONE-FEW); RBC,URINE 0-1 (0-2/HPF); WBC,URINE 0-1 (0-5/HPF)
== END 2022-09-05 05:18 | disposition home or self-care (01) ==
LOC: MW.ED 02:04
DX: R10.13 Epigastric pain (principal); F10.129 Alcohol abuse with intoxication, unspecified; K21.9 Gastro-esophageal reflux disease without esophagitis; Z88.0 Allergy status to penicillin; Z79.01 Long term (current) use of anticoagulants
CPT/HCPCS: 36415; 71045; 71275; 74177; 80053; 80305; 80307; 81001; 83605; 84484; 85025; 85379; 85610; 93005; 96360; 96372; 99285; A9270; J1650; J3490; J7030; Q9967; 93010; 99283

== ENCOUNTER 2022-09-10 00:49 | Emergency (ER) | payer MEDICAID ==
[2022-09-10] MEDS ORDERED: HYDROmorphone 1 MG/ML Syringe IVPUSH ONE (01:01)
[2022-09-10] MEDS ORDERED: diphenhydrAMINE 50 MG/ML SDV IVPUSH ONE (01:03)
[2022-09-10] MEDS ORDERED: Metoclopramide 10 MG/2 ML SDV IVPUSH ONE (01:03)
[2022-09-10 01:23] LABS: BASOPHILS PERCENT AUTO 0.5 % (0.0-1.5); EOSINOPHILS ABSOLUTE AUTO 0.5 K/uL (0.0-0.7); EOSINOPHILS PERCENT AUTO 8.2 % (0.0-7.0); HEMATOCRIT 48.9 % (38.0-50.0); HEMOGLOBIN 17.2 g/dL (13.0-17.0); LYMPHOCYTES PERCENT AUTO 31.2 % (16.0-40.0); MEAN CORPUSCULAR HEMOGLOBIN 34.3 pg (27.0-32.0); MEAN CORPUSCULAR HGB CONC 35.2 g/dL (31.0-37.0); MEAN CORPUSCULAR VOLUME 97.4 fL (80.0-98.0); MONOCYTES ABSOLUTE AUTO 0.5 K/uL (0.0-0.8); MONOCYTES PERCENT AUTO 7.7 % (0.0-15.0); NEUTROPHILS ABSOLUTE AUTO 3.3 K/uL (1.4-5.7); NEUTROPHILS PERCENT AUTO 52.4 % (48.0-80.0); PLATELET COUNT,PLT 180 K/uL (150-400); RED BLOOD CELL COUNT 5.02 M/uL (4.50-5.90); WHITE BLOOD CELL COUNT,WBC 6.37 K/uL (4.0-11.0)
[2022-09-10 01:35] LABS: INR 1.04 (0.86-1.11); PTT,PARTIAL THROMBOPLSTIN TIME 28.3 SEC (23.9-30.7)
[2022-09-10 01:45] LABS: ALBUMIN 3.6 g/dL (3.4-5.0); BILIRUBIN TOTAL 0.5 mg/dL (0.2-1.0); CALCIUM 8.8 mg/dL (8.5-10.1); CARBON DIOXIDE,CO2 24.9 mmol/L (21.0-32.0); CREATININE 1.1 mg/dL (0.8-1.3); EST CRCL DRUG DOSING (CG) 70.08 mL/min; POTASSIUM,K 3.8 mmol/L (3.5-5.1); PROTEIN TOTAL,TP 7.2 g/dL (6.4-8.2)
[2022-09-10] MEDS ORDERED: Ketorolac 30 MG/ML SDV IVPUSH ONE (02:48)
[2022-09-10] MEDS ORDERED: Iopamidol 755 MG/ML 500 ML Multipack Bottle IVPUSH STA (02:55)
== END 2022-09-10 03:58 | disposition home or self-care (01) ==
LOC: MW.ED 00:49
DX: G43.909 Migraine, unspecified, not intractable, without status migrainosus (principal); K21.9 Gastro-esophageal reflux disease without esophagitis; Z79.899 Other long term (current) drug therapy; Z88.0 Allergy status to penicillin
CPT/HCPCS: 36415; 70450; 70496; 70498; 80053; 85025; 85610; 85730; 96374; 96375; 99284; J1170; J1200; J1885; J2765; Q9967

== ENCOUNTER 2022-09-13 20:08 | Emergency (ER) | payer MEDICAID | END 2022-09-13 20:15 | disposition left against medical advice (07) | LOC: MW.ED 20:08 | DX: Z53.21 Procedure and treatment not carried out due to patient leaving prior to being seen by health care provider (principal) ==

== ENCOUNTER 2022-10-07 03:22 | Emergency (ER) | payer MEDICAID ==
[2022-10-07] MEDS ORDERED: Acetaminophen 500 MG Tab PO ONE (03:34)
[2022-10-07] MEDS ORDERED: Sodium Chloride 0.9% 2.5 ML Syringe FLUSH PRN (03:34)
[2022-10-07] MEDS ORDERED: Sodium Chloride 0.9% 10 ML Syringe FLUSH PRN (03:34)
[2022-10-07 03:45] LABS: BASOPHILS PERCENT AUTO 0.6 % (0.0-1.5); EOSINOPHILS ABSOLUTE AUTO 0.4 K/uL (0.0-0.7); EOSINOPHILS PERCENT AUTO 5.7 % (0.0-7.0); HEMATOCRIT 47.4 % (38.0-50.0); HEMOGLOBIN 16.7 g/dL (13.0-17.0); LYMPHOCYTES ABSOLUTE AUTO 2.4 K/uL (0.6-2.4); LYMPHOCYTES PERCENT AUTO 36.1 % (16.0-40.0); MEAN CORPUSCULAR HEMOGLOBIN 35.2 pg (27.0-32.0); MEAN CORPUSCULAR HGB CONC 35.2 g/dL (31.0-37.0); MONOCYTES ABSOLUTE AUTO 0.7 K/uL (0.0-0.8); MONOCYTES PERCENT AUTO 10.9 % (0.0-15.0); NEUTROPHILS ABSOLUTE AUTO 3.1 K/uL (1.4-5.7); NEUTROPHILS PERCENT AUTO 46.7 % (48.0-80.0); NRBC ABSOLUTE 0 K/uL; PLATELET COUNT,PLT 200 K/uL (150-400); RED BLOOD CELL COUNT 4.74 M/uL (4.50-5.90); WHITE BLOOD CELL COUNT,WBC 6.62 K/uL (4.0-11.0)
[2022-10-07 03:46] LABS: APPEARANCE,URINE CLEAR; BILIRUBIN,URINE NEGATIVE (NEGATIVE); COLOR,URINE YELLOW; GLUCOSE,URINE NEGATIVE (NEGATIVE); KETONES,URINE NEGATIVE (NEGATIVE); LEUKOCYTE ESTERASE,URINE NEGATIVE (NEGATIVE); NITRITE,URINE NEGATIVE (NEGATIVE); OCCULT BLOOD,URINE NEGATIVE (NEGATIVE); PROTEIN,URINE NEGATIVE (NEGATIVE); UROBILINOGEN,URINE 0.2 EU/dL (<2.0)
[2022-10-07 03:51] LABS: INR 0.96 (0.86-1.11)
[2022-10-07 04:00] LABS: ALBUMIN 3.7 g/dL (3.4-5.0); BILIRUBIN TOTAL 0.3 mg/dL (0.2-1.0); CALCIUM 8.8 mg/dL (8.5-10.1); CARBON DIOXIDE,CO2 22.7 mmol/L (21.0-32.0); CREATININE 1.1 mg/dL (0.8-1.3); EST CRCL DRUG DOSING (CG) 102.31 mL/min; POTASSIUM,K 3.4 mmol/L (3.5-5.1); PROTEIN TOTAL,TP 7.5 g/dL (6.4-8.2)
[2022-10-07] MEDS ORDERED: Morphine 2 MG/ML SYRINGE IVPUSH ONE (04:24)
[2022-10-07] MEDS ORDERED: Aluminum Hydroxide/Magnesium Hydroxide/Simethicone XS Susp 30 ML Cup PO ONE (04:24)
[2022-10-07] MEDS ORDERED: Morphine 4 MG/ML Syringe IVPUSH ONE (04:25)
[2022-10-07] MEDS ORDERED: Iopamidol 755 MG/ML 500 ML Multipack Bottle IVPUSH ONE (05:03)
[2022-10-07] MEDS ORDERED: HYDROmorphone 2 MG/ML Syringe IVPUSH ONE (06:01)
== END 2022-10-07 07:32 | disposition home or self-care (01) ==
LOC: MW.ED 03:22
DX: R07.9 Chest pain, unspecified (principal); Z88.0 Allergy status to penicillin; Z79.01 Long term (current) use of anticoagulants
CPT/HCPCS: 36415; 71045; 71275; 80053; 81003; 83690; 84484; 85025; 85610; 93005; 96374; 96375; 99285; A9270; J1170; J2270; J3490; Q9967; 93010; 99284

== ENCOUNTER 2022-11-04 03:39 | Emergency (ER) | payer MEDICAID ==
[2022-11-04] MEDS ORDERED: Morphine 4 MG/ML Syringe IVPUSH ONE ×2 (04:06→04:58)
[2022-11-04 04:22] LABS: BASOPHILS PERCENT AUTO 0.6 % (0.0-1.5); EOSINOPHILS ABSOLUTE AUTO 0.5 K/uL (0.0-0.7); EOSINOPHILS PERCENT AUTO 7.6 % (0.0-7.0); HEMATOCRIT 51.7 % (38.0-50.0); HEMOGLOBIN 18.6 g/dL (13.0-17.0); LYMPHOCYTES ABSOLUTE AUTO 2.8 K/uL (0.6-2.4); LYMPHOCYTES PERCENT AUTO 40.3 % (16.0-40.0); MEAN CORPUSCULAR HEMOGLOBIN 35.6 pg (27.0-32.0); MEAN CORPUSCULAR VOLUME 98.9 fL (80.0-98.0); MONOCYTES ABSOLUTE AUTO 0.7 K/uL (0.0-0.8); MONOCYTES PERCENT AUTO 10.8 % (0.0-15.0); NEUTROPHILS ABSOLUTE AUTO 2.8 K/uL (1.4-5.7); NEUTROPHILS PERCENT AUTO 40.7 % (48.0-80.0); NRBC ABSOLUTE 0 K/uL; PLATELET COUNT,PLT 209 K/uL (150-400); RED BLOOD CELL COUNT 5.23 M/uL (4.50-5.90); WHITE BLOOD CELL COUNT,WBC 6.85 K/uL (4.0-11.0)
[2022-11-04 04:32] LABS: INR 0.95 (0.86-1.11)
[2022-11-04] MEDS ORDERED: Sodium Chloride 0.9% 1,000 ML IV ONE (04:38)
[2022-11-04 04:51] LABS: A/G RATIO 0.9 (0.9-1.6); ALBUMIN 3.6 g/dL (3.4-5.0); BILIRUBIN TOTAL 0.3 mg/dL (0.2-1.0); CALCIUM 8.7 mg/dL (8.5-10.1); CARBON DIOXIDE,CO2 27.9 mmol/L (21.0-32.0); CREATININE 1.4 mg/dL (0.8-1.3); EST CRCL DRUG DOSING (CG) 80.39 mL/min; POTASSIUM,K 3.5 mmol/L (3.5-5.1); PROTEIN TOTAL,TP 7.4 g/dL (6.4-8.2)
[2022-11-04] MEDS ORDERED: diphenhydrAMINE 25 MG Cap PO ONE (05:32)
== END 2022-11-04 07:00 | disposition home or self-care (01) ==
LOC: MW.ED 03:39
DX: R10.10 Upper abdominal pain, unspecified (principal); G89.29 Other chronic pain; R11.2 Nausea with vomiting, unspecified; I10 Essential (primary) hypertension; Z88.0 Allergy status to penicillin; Z79.01 Long term (current) use of anticoagulants; Z90.49 Acquired absence of other specified parts of digestive tract
CPT/HCPCS: 36415; 71045; 80053; 83690; 85025; 85610; 93005; 96361; 96374; 96376; 99285; A9270; J2270; J7030; 93010; 99283

== ENCOUNTER 2022-11-07 01:21 | Emergency (ER) | payer MEDICAID ==
[2022-11-07] MEDS ORDERED: Morphine 4 MG/ML Syringe IVPUSH ONE (01:44)
== END 2022-11-07 03:21 | disposition home or self-care (01) ==
LOC: MW.ED 01:21
DX: G89.29 Other chronic pain (principal); R10.9 Unspecified abdominal pain; R07.9 Chest pain, unspecified; F17.210 Nicotine dependence, cigarettes, uncomplicated; Z88.0 Allergy status to penicillin
CPT/HCPCS: 71045; 96374; 99284; J2270

== ENCOUNTER 2022-11-17 22:34 | Emergency (ER) | payer MEDICAID | END 2022-11-17 22:44 | disposition left against medical advice (07) | LOC: MW.ED 22:34 | DX: Z53.21 Procedure and treatment not carried out due to patient leaving prior to being seen by health care provider (principal) | CPT/HCPCS: 93005 ==

== ENCOUNTER 2022-11-19 10:48 | Emergency (ER) | payer MEDICAID ==
[2022-11-19] MEDS ORDERED: Sodium Chloride 0.9% 1,000 ML IV ONE (11:00)
[2022-11-19] MEDS ORDERED: Promethazine 25 MG/ML SDV IM ONE (11:05)
[2022-11-19] MEDS ORDERED: Pantoprazole 40 MG in Sodium Chloride 0.9% 10 ML IVPUSH ONE (11:05)
[2022-11-19 11:15] LABS: NRBC ABSOLUTE 0 K/uL
[2022-11-19] MEDS ORDERED: Morphine 4 MG/ML Syringe IVPUSH ONE (11:22)
[2022-11-19 11:36] LABS: INR < 0.93 (0.86-1.11); PTT,PARTIAL THROMBOPLSTIN TIME 26.7 SEC (23.9-30.7)
[2022-11-19 11:39] LABS: ALBUMIN 3.5 g/dL (3.4-5.0); BILIRUBIN TOTAL 0.1 mg/dL (0.2-1.0); CALCIUM 9.1 mg/dL (8.5-10.1); CARBON DIOXIDE,CO2 20.7 mmol/L (21.0-32.0); CREATININE 1.1 mg/dL (0.8-1.3); EST CRCL DRUG DOSING (CG) 108.76 mL/min; POTASSIUM,K 3.4 mmol/L (3.5-5.1); PROTEIN TOTAL,TP 7.1 g/dL (6.4-8.2)
[2022-11-19 11:58] LABS: HEMATOCRIT 49.2 % (38.0-50.0); HEMOGLOBIN 16.9 g/dL (13.0-17.0); MEAN CORPUSCULAR HEMOGLOBIN 35.4 pg (27.0-32.0); MEAN CORPUSCULAR HGB CONC 34.3 g/dL (31.0-37.0); MEAN CORPUSCULAR VOLUME 103.1 fL (80.0-98.0); PLATELET COUNT,PLT 202 K/uL (150-400); RED BLOOD CELL COUNT 4.77 M/uL (4.50-5.90); WHITE BLOOD CELL COUNT,WBC 5.98 K/uL (4.0-11.0)
[2022-11-19 11:59] LABS: BASOPHILS PERCENT AUTO 0.7 % (0.0-1.5); EOSINOPHILS ABSOLUTE AUTO 0.2 K/uL (0.0-0.7); LYMPHOCYTES ABSOLUTE AUTO 1.3 K/uL (0.6-2.4); LYMPHOCYTES PERCENT AUTO 21.1 % (16.0-40.0); MONOCYTES ABSOLUTE AUTO 1.1 K/uL (0.0-0.8); MONOCYTES PERCENT AUTO 17.6 % (0.0-15.0); NEUTROPHILS ABSOLUTE AUTO 3.4 K/uL (1.4-5.7); NEUTROPHILS PERCENT AUTO 56.6 % (48.0-80.0)
== END 2022-11-19 14:41 | disposition home or self-care (01) ==
LOC: MW.ED 10:48
DX: K29.20 Alcoholic gastritis without bleeding (principal); Z88.0 Allergy status to penicillin; Z79.01 Long term (current) use of anticoagulants; Z20.822 Contact with and (suspected) exposure to COVID-19
CPT/HCPCS: 36415; 71045; 71275; 74177; 80053; 83690; 83735; 84484; 85025; 85379; 85610; 85730; 86850; 86900; 86901; 87635; 93005; 96361; 96372; 96374; 96375; 99285; C9113; J2270; J2550; J3490; J7030; U0002

== ENCOUNTER 2022-12-02 12:13 | Emergency (ER) | payer MEDICAID | END 2022-12-02 12:50 | LOC: MW.ED 12:13 | DX: Z02.89 Encounter for other administrative examinations (principal); F10.920 Alcohol use, unspecified with intoxication, uncomplicated; Z91.148 Patient's other noncompliance with medication regimen for other reason; Z88.0 Allergy status to penicillin | CPT/HCPCS: 99282; 99284 ==

== ENCOUNTER 2022-12-03 13:41 | Emergency (ER) | payer MEDICAID ==
[2022-12-03 13:50] LABS: BASOPHILS ABSOLUTE AUTO 0.1 K/uL (0.0-0.1); BASOPHILS PERCENT AUTO 1.3 % (0.0-1.5); EOSINOPHILS ABSOLUTE AUTO 0.2 K/uL (0.0-0.7); EOSINOPHILS PERCENT AUTO 2.9 % (0.0-7.0); HEMATOCRIT 56.5 % (38.0-50.0); HEMOGLOBIN 19.4 g/dL (13.0-17.0); LYMPHOCYTES ABSOLUTE AUTO 2.3 K/uL (0.6-2.4); LYMPHOCYTES PERCENT AUTO 36.3 % (16.0-40.0); MEAN CORPUSCULAR HEMOGLOBIN 35.3 pg (27.0-32.0); MEAN CORPUSCULAR HGB CONC 34.3 g/dL (31.0-37.0); MEAN CORPUSCULAR VOLUME 102.9 fL (80.0-98.0); MONOCYTES ABSOLUTE AUTO 0.4 K/uL (0.0-0.8); MONOCYTES PERCENT AUTO 6.9 % (0.0-15.0); NEUTROPHILS ABSOLUTE AUTO 3.3 K/uL (1.4-5.7); NEUTROPHILS PERCENT AUTO 52.6 % (48.0-80.0); NRBC ABSOLUTE 0 K/uL; PLATELET COUNT,PLT 242 K/uL (150-400); RED BLOOD CELL COUNT 5.49 M/uL (4.50-5.90); WHITE BLOOD CELL COUNT,WBC 6.23 K/uL (4.0-11.0)
[2022-12-03 14:17] LABS: A/G RATIO 0.8 (0.9-1.6); ALBUMIN 3.5 g/dL (3.4-5.0); BILIRUBIN TOTAL 0.4 mg/dL (0.2-1.0); CALCIUM 8.1 mg/dL (8.5-10.1); CARBON DIOXIDE,CO2 23.5 mmol/L (21.0-32.0); CREATININE 1.3 mg/dL (0.8-1.3); EST CRCL DRUG DOSING (CG) 86.57 mL/min; POTASSIUM,K 3.5 mmol/L (3.5-5.1); PROTEIN TOTAL,TP 7.7 g/dL (6.4-8.2)
== END 2022-12-03 14:43 | disposition left against medical advice (07) ==
LOC: MW.ED 13:41
DX: F10.920 Alcohol use, unspecified with intoxication, uncomplicated (principal); R04.0 Epistaxis; I10 Essential (primary) hypertension; K21.9 Gastro-esophageal reflux disease without esophagitis; Z88.0 Allergy status to penicillin; Z79.899 Other long term (current) drug therapy; Z79.01 Long term (current) use of anticoagulants; W18.30XA Fall on same level, unspecified, initial encounter; Y92.009 Unspecified place in unspecified non-institutional (private) residence as the place of occurrence of the external cause
CPT/HCPCS: 36415; 70450; 70450-26; 70486; 70486-26; 71045; 71045-26; 72125; 72125-26; 72128; 72128-26; 72131; 72131-26; 72170; 72170-26; 80053; 80307; 83690; 85025; 85610; 93005; 93010; 99283; 99284

== ENCOUNTER 2022-12-03 19:51 | Emergency (ER) | payer MEDICAID | END 2022-12-03 20:00 | disposition left against medical advice (07) | LOC: MW.ED 19:51 | DX: Z53.21 Procedure and treatment not carried out due to patient leaving prior to being seen by health care provider (principal) ==

== ENCOUNTER 2023-01-06 21:35 | Emergency (ER) | payer OTHER, MEDICAID ==
[2023-01-06] MEDS ORDERED: Ondansetron 4 MG/2 ML SDV ONE ×2 (21:37→21:42)
[2023-01-06] MEDS ORDERED: Ondansetron 4 MG/2 ML SDV IVPUSH ONE (21:45)
[2023-01-06 22:23] LABS: BASOPHILS ABSOLUTE AUTO 0.1 K/uL (0.0-0.1); EOSINOPHILS ABSOLUTE AUTO 0.3 K/uL (0.0-0.7); EOSINOPHILS PERCENT AUTO 5.1 % (0.0-7.0); HEMATOCRIT 48.4 % (38.0-50.0); LYMPHOCYTES ABSOLUTE AUTO 2.1 K/uL (0.6-2.4); MEAN CORPUSCULAR HEMOGLOBIN 35.2 pg (27.0-32.0); MEAN CORPUSCULAR HGB CONC 35.1 g/dL (31.0-37.0); MEAN CORPUSCULAR VOLUME 100.2 fL (80.0-98.0); MONOCYTES ABSOLUTE AUTO 0.5 K/uL (0.0-0.8); MONOCYTES PERCENT AUTO 9.9 % (0.0-15.0); NEUTROPHILS ABSOLUTE AUTO 2.3 K/uL (1.4-5.7); NRBC ABSOLUTE 0 K/uL; PLATELET COUNT,PLT 183 K/uL (150-400); RED BLOOD CELL COUNT 4.83 M/uL (4.50-5.90); WHITE BLOOD CELL COUNT,WBC 5.13 K/uL (4.0-11.0)
[2023-01-06 22:34] LABS: CARBON DIOXIDE,CO2 21.4 mmol/L (21.0-32.0); CREATININE 1.1 mg/dL (0.8-1.3); EST CRCL DRUG DOSING (CG) 99.09 mL/min; POTASSIUM,K 3.9 mmol/L (3.5-5.1)
== END 2023-01-06 23:25 | disposition home or self-care (01) ==
LOC: MW.ED 21:35
DX: S06.0XAA Concussion with loss of consciousness status unknown, initial encounter (principal); S00.81XA Abrasion of other part of head, initial encounter; F10.120 Alcohol abuse with intoxication, uncomplicated; I10 Essential (primary) hypertension; K21.9 Gastro-esophageal reflux disease without esophagitis; Z79.899 Other long term (current) drug therapy; Z88.0 Allergy status to penicillin; Z88.1 Allergy status to other antibiotic agents; V89.2XXA Person injured in unspecified motor-vehicle accident, traffic, initial encounter; Y92.410 Unspecified street and highway as the place of occurrence of the external cause
CPT/HCPCS: 36415; 70450; 70486; 72125; 80048; 80307; 85025; 96374; 99285; J2405; 99284

== ENCOUNTER 2023-01-07 16:12 | Emergency (ER) | payer OTHER, MEDICAID ==
[2023-01-07] MEDS ORDERED: Ketorolac 30 MG/ML SDV IM ONE (18:36)
== END 2023-01-07 19:00 | disposition left against medical advice (07) ==
LOC: MW.ED 16:12
DX: S06.0XAA Concussion with loss of consciousness status unknown, initial encounter (principal); F17.210 Nicotine dependence, cigarettes, uncomplicated; I10 Essential (primary) hypertension; K21.9 Gastro-esophageal reflux disease without esophagitis; Z79.01 Long term (current) use of anticoagulants; Z79.899 Other long term (current) drug therapy; Z88.0 Allergy status to penicillin; Z88.1 Allergy status to other antibiotic agents; V89.2XXA Person injured in unspecified motor-vehicle accident, traffic, initial encounter; Y92.410 Unspecified street and highway as the place of occurrence of the external cause
CPT/HCPCS: 70450; 96372; 99284; J1885; 99282

== ENCOUNTER 2023-02-12 15:30 | Emergency (ER) | payer MEDICAID ==
[2023-02-12] MEDS ORDERED: Acetaminophen 500 MG Tab PO ONE (16:23)
== END 2023-02-12 16:52 | disposition home or self-care (01) ==
LOC: MW.ED 15:30
DX: M79.641 Pain in right hand (principal); K21.9 Gastro-esophageal reflux disease without esophagitis; Z88.0 Allergy status to penicillin; Z79.01 Long term (current) use of anticoagulants; Z79.899 Other long term (current) drug therapy; W23.1XXA Caught, crushed, jammed, or pinched between stationary objects, initial encounter; Y92.89 Other specified places as the place of occurrence of the external cause; Y99.0 Civilian activity done for income or pay
CPT/HCPCS: 73130; 99283; A9270

== ENCOUNTER 2023-02-13 16:02 | Emergency (ER) | payer MEDICAID | END 2023-02-13 17:06 | disposition left against medical advice (07) | LOC: MW.ED 16:02 | DX: Z53.21 Procedure and treatment not carried out due to patient leaving prior to being seen by health care provider (principal) ==

== ENCOUNTER 2023-02-14 01:14 | Emergency (ER) | payer MEDICAID ==
[2023-02-14] MEDS ORDERED: Aluminum Hydroxide/Magnesium Hydroxide/Simethicone XS Susp 30 ML Cup PO ONE (01:24)
[2023-02-14] MEDS ORDERED: Lidocaine 2% Viscous Solution 15 ML UD PO ONE (01:28)
[2023-02-14 01:35] LABS: BASOPHILS ABSOLUTE AUTO 0.06 K/uL (0.00-0.20); BASOPHILS PERCENT AUTO 1.1 % (0.0-1.0); EOSINOPHILS ABSOLUTE AUTO 0.34 K/uL (0.00-0.45); HEMATOCRIT 46.5 % (42.0-52.0); HEMOGLOBIN 16.4 g/dL (14.0-18.0); IMMATURE GRAN ABSOLUTE AUTO 0.01 K/uL (0.00-0.05); IMMATURE GRAN PERCENT AUTO 0.2 % (0.0-0.4); LYMPHOCYTES ABSOLUTE AUTO 2.77 K/uL (1.00-4.80); LYMPHOCYTES PERCENT AUTO 48.6 % (24.0-44.0); MEAN CORPUSCULAR HGB CONC 35.3 g/dL (32.0-36.0); MEAN CORPUSCULAR VOLUME 99.1 fL (83.0-99.0); MEAN PLATELET VOLUME 9.8 fL (9.4-12.4); MONOCYTES ABSOLUTE AUTO 0.51 K/uL (0.00-0.80); MONOCYTES PERCENT AUTO 8.9 % (0.0-8.0); NEUTROPHILS ABSOLUTE AUTO 2.01 K/uL (1.80-7.70); NEUTROPHILS PERCENT AUTO 35.2 % (41.0-71.0); PLATELET COUNT,PLT 210 K/uL (150-400); RED BLOOD CELL COUNT 4.69 M/uL (4.52-5.90)
[2023-02-14 01:40] LABS: PH,VENOUS 7.39 (7.31-7.41)
[2023-02-14 02:00] LABS: A/G RATIO 1.4 (0.9-1.6); ACETAMINOPHEN <2.0 ug/mL; ALANINE AMINOTRANSFERASE,ALT 26 IU/L (14-63); ALBUMIN 4.2 g/dL (3.4-5.0); ALKALINE PHOSPHATASE 87 U/L (46-116); ASPARTATE AMNIOTRANSFERASE,AST 25 IU/L (15-37); BILIRUBIN TOTAL 0.2 mg/dL (0.2-1.0); BLOOD UREA NITROGEN,BUN 14 mg/dL (7.0-18.0); CALCIUM 8.8 mg/dL (8.5-10.1); CHLORIDE,CL 103 mmol/L (98-107); CREATINE KINASE,CK 151 U/L (26-308); CREATININE 1.3 mg/dL (0.8-1.3); EST CRCL DRUG DOSING (CG) 86.57 mL/min; GLUCOSE RANDOM 82 mg/dL (74-106); POTASSIUM,K 3.8 mmol/L (3.5-5.1); PROTEIN TOTAL,TP 7.2 g/dL (6.4-8.2); SALICYLATE 0.7 mg/dL (0.0-20.0); SODIUM,NA 142 mmol/L (136-148)
[2023-02-14 02:03] LABS: ESTIMATED GFR 76 mL/min (>60)
== END 2023-02-14 03:10 | disposition home or self-care (01) ==
LOC: MW.ED 01:14
DX: T39.311A Poisoning by propionic acid derivatives, accidental (unintentional), initial encounter (principal); K21.9 Gastro-esophageal reflux disease without esophagitis; Z79.899 Other long term (current) drug therapy; Z88.0 Allergy status to penicillin; Z79.01 Long term (current) use of anticoagulants
CPT/HCPCS: 36415; 80053; 80143; 80179; 82550; 82803; 85025; 93005; 99284; A9270; 93010; 99283

== ENCOUNTER 2023-02-19 19:25 | Emergency (ER) | payer MEDICAID ==
[2023-02-19] MEDS ORDERED: Ondansetron 4 MG/2 ML SDV IVPUSH ONE (20:10)
[2023-02-19] MEDS ORDERED: Sodium Chloride 0.9% 2.5 ML Syringe FLUSH PRN (20:10)
[2023-02-19] MEDS ORDERED: Sodium Chloride 0.9% 10 ML Syringe FLUSH PRN (20:10)
[2023-02-19] MEDS ORDERED: Sodium Chloride 0.9% 1,000 ML IV ONE (20:10)
[2023-02-19] MEDS ORDERED: Famotidine 20 MG/2 ML SDV IVPUSH ONE (20:10)
[2023-02-19] MEDS ORDERED: Pantoprazole 40 MG in Sodium Chloride 0.9% 10 ML IVPUSH ONE (20:11)
[2023-02-19 20:43] LABS: BASOPHILS ABSOLUTE AUTO 0.04 K/uL (0.00-0.20); BASOPHILS PERCENT AUTO 0.6 % (0.0-1.0); EOSINOPHILS ABSOLUTE AUTO 0.24 K/uL (0.00-0.45); EOSINOPHILS PERCENT AUTO 3.4 % (0.0-6.0); HEMATOCRIT 49.8 % (42.0-52.0); HEMOGLOBIN 17.6 g/dL (14.0-18.0); IMMATURE GRAN ABSOLUTE AUTO 0.02 K/uL (0.00-0.05); IMMATURE GRAN PERCENT AUTO 0.3 % (0.0-0.4); LYMPHOCYTES ABSOLUTE AUTO 1.75 K/uL (1.00-4.80); LYMPHOCYTES PERCENT AUTO 25.1 % (24.0-44.0); MEAN CORPUSCULAR HEMOGLOBIN 34.8 pg (28.0-32.0); MEAN CORPUSCULAR HGB CONC 35.3 g/dL (32.0-36.0); MEAN CORPUSCULAR VOLUME 98.4 fL (83.0-99.0); MEAN PLATELET VOLUME 9.9 fL (9.4-12.4); MONOCYTES ABSOLUTE AUTO 0.63 K/uL (0.00-0.80); NEUTROPHILS ABSOLUTE AUTO 4.29 K/uL (1.80-7.70); NEUTROPHILS PERCENT AUTO 61.6 % (41.0-71.0); PLATELET COUNT,PLT 185 K/uL (150-400); RED BLOOD CELL COUNT 5.06 M/uL (4.52-5.90); WHITE BLOOD CELL COUNT,WBC 6.97 K/uL (3.9-11.3)
[2023-02-19 21:11] LABS: A/G RATIO 1.1 (0.9-1.6); ALBUMIN 4.1 g/dL (3.4-5.0); BILIRUBIN TOTAL 0.6 mg/dL (0.2-1.0); CALCIUM 9.6 mg/dL (8.5-10.1); CARBON DIOXIDE,CO2 27.8 mmol/L (21.0-32.0); CREATININE 1.3 mg/dL (0.8-1.3); EST CRCL DRUG DOSING (CG) 92.03 mL/min; POTASSIUM,K 3.6 mmol/L (3.5-5.1); PROTEIN TOTAL,TP 7.9 g/dL (6.4-8.2)
== END 2023-02-19 22:06 | disposition home or self-care (01) ==
LOC: MW.ED 19:25
DX: K29.70 Gastritis, unspecified, without bleeding (principal); K29.80 Duodenitis without bleeding; K21.9 Gastro-esophageal reflux disease without esophagitis; Z86.711 Personal history of pulmonary embolism; Z88.0 Allergy status to penicillin; Z79.01 Long term (current) use of anticoagulants; Z79.899 Other long term (current) drug therapy
CPT/HCPCS: 36415; 74176; 80053; 83690; 85025; 96374; 96375; 99284; C9113; J2405; J3490; J7030

== ENCOUNTER 2023-02-22 00:26 | Emergency (ER) | payer MEDICAID, OTHER ==
[2023-02-22] MEDS ORDERED: Sodium Chloride 0.9% 2.5 ML Syringe FLUSH PRN (00:49)
[2023-02-22] MEDS ORDERED: Sodium Chloride 0.9% 1,000 ML IV ONE (00:49)
[2023-02-22] MEDS ORDERED: Ketorolac 30 MG/ML SDV IVPUSH ONE (00:49)
[2023-02-22] MEDS ORDERED: Sodium Chloride 0.9% 10 ML Syringe FLUSH PRN (00:49)
[2023-02-22] MEDS ORDERED: Acetaminophen 325 MG Tab PO ONE (00:51)
[2023-02-22] MEDS ORDERED: Hyoscyamine 0.125 MG Tab.SL SL ONE (00:51)
[2023-02-22] MEDS ORDERED: Sucralfate Suspension 1 GM/10 ML Cup PO ONE (00:51)
[2023-02-22] MEDS ORDERED: Pantoprazole 40 MG in Sodium Chloride 0.9% 10 ML IVPUSH ONE (00:52)
[2023-02-22] MEDS ORDERED: Morphine 4 MG/ML Syringe IVPUSH ONE (00:52)
[2023-02-22 00:56] LABS: BASOPHILS ABSOLUTE AUTO 0.05 K/uL (0.00-0.20); BASOPHILS PERCENT AUTO 0.6 % (0.0-1.0); EOSINOPHILS ABSOLUTE AUTO 0.09 K/uL (0.00-0.45); EOSINOPHILS PERCENT AUTO 1.1 % (0.0-6.0); HEMATOCRIT 47.1 % (42.0-52.0); HEMOGLOBIN 16.9 g/dL (14.0-18.0); IMMATURE GRAN ABSOLUTE AUTO 0.03 K/uL (0.00-0.05); IMMATURE GRAN PERCENT AUTO 0.4 % (0.0-0.4); LYMPHOCYTES ABSOLUTE AUTO 1.98 K/uL (1.00-4.80); LYMPHOCYTES PERCENT AUTO 23.4 % (24.0-44.0); MEAN CORPUSCULAR HEMOGLOBIN 35.2 pg (28.0-32.0); MEAN CORPUSCULAR HGB CONC 35.9 g/dL (32.0-36.0); MEAN CORPUSCULAR VOLUME 98.1 fL (83.0-99.0); MEAN PLATELET VOLUME 10.1 fL (9.4-12.4); MONOCYTES ABSOLUTE AUTO 0.72 K/uL (0.00-0.80); MONOCYTES PERCENT AUTO 8.5 % (0.0-8.0); PLATELET COUNT,PLT 234 K/uL (150-400); WHITE BLOOD CELL COUNT,WBC 8.47 K/uL (3.9-11.3)
[2023-02-22 01:17] LABS: A/G RATIO 1.1 (0.9-1.6); ALANINE AMINOTRANSFERASE,ALT 21 IU/L (14-63); ALBUMIN 4.2 g/dL (3.4-5.0); ALKALINE PHOSPHATASE 80 U/L (46-116); ASPARTATE AMNIOTRANSFERASE,AST 18 IU/L (15-37); BILIRUBIN TOTAL 0.5 mg/dL (0.2-1.0); BLOOD UREA NITROGEN,BUN 10 mg/dL (7.0-18.0); CALCIUM 9.4 mg/dL (8.5-10.1); CARBON DIOXIDE,CO2 23.6 mmol/L (21.0-32.0); CHLORIDE,CL 101 mmol/L (98-107); CREATININE 1.3 mg/dL (0.8-1.3); ESTIMATED GFR 76 mL/min (>60); GLUCOSE RANDOM 93 mg/dL (74-106); POTASSIUM,K 3.7 mmol/L (3.5-5.1); PROTEIN TOTAL,TP 8.1 g/dL (6.4-8.2); SODIUM,NA 139 mmol/L (136-148)
[2023-02-22] MEDS ORDERED: Iopamidol 755 MG/ML 500 ML Multipack Bottle IVPUSH STA (01:19)
== END 2023-02-22 03:19 | disposition home or self-care (01) ==
LOC: MW.ED 00:26
DX: K20.90 Esophagitis, unspecified without bleeding (principal); K29.70 Gastritis, unspecified, without bleeding; Z88.0 Allergy status to penicillin
CPT/HCPCS: 36415; 71275; 80053; 84484; 85025; 93005; 96361; 96374; 96375; 99285; A9270; C9113; J1885; J2270; J3490; J7030; Q9967; 93010; 99283

== ENCOUNTER 2023-04-17 00:40 | Emergency (ER) | payer MEDICAID ==
[2023-04-17] MEDS ORDERED: Sodium Chloride 0.9% 1,000 ML IV ONE (00:50)
[2023-04-17] MEDS ORDERED: HYDROmorphone 1 MG/ML Syringe IVPUSH ONE (00:50)
[2023-04-17] MEDS ORDERED: Ondansetron 4 MG/2 ML SDV IVPUSH ONE (00:50)
[2023-04-17] MEDS ORDERED: Sodium Chloride 0.9% 2.5 ML Syringe FLUSH PRN (00:50)
[2023-04-17] MEDS ORDERED: Sodium Chloride 0.9% 10 ML Syringe FLUSH PRN (00:50)
[2023-04-17] MEDS ORDERED: LORazepam 2 MG/ML SDV IVPUSH ONE (00:50)
[2023-04-17 01:00] LABS: APPEARANCE,URINE CLEAR; BILIRUBIN,URINE NEGATIVE (NEGATIVE); COLOR,URINE YELLOW; GLUCOSE,URINE NEGATIVE (NEGATIVE); KETONES,URINE NEGATIVE (NEGATIVE); LEUKOCYTE ESTERASE,URINE NEGATIVE (NEGATIVE); NITRITE,URINE NEGATIVE (NEGATIVE); OCCULT BLOOD,URINE NEGATIVE (NEGATIVE); PH,URINE 7.5 (5.0-8.0); PROTEIN,URINE NEGATIVE (NEGATIVE); UROBILINOGEN,URINE 0.2 EU/dL (<2.0)
[2023-04-17 01:31] LABS: BASOPHILS ABSOLUTE AUTO 0.07 K/uL (0.00-0.20); EOSINOPHILS ABSOLUTE AUTO 0.48 K/uL (0.00-0.45); EOSINOPHILS PERCENT AUTO 6.8 % (0.0-6.0); HEMATOCRIT 50.3 % (42.0-52.0); HEMOGLOBIN 18.5 g/dL (14.0-18.0); IMMATURE GRAN ABSOLUTE AUTO 0.01 K/uL (0.00-0.05); IMMATURE GRAN PERCENT AUTO 0.1 % (0.0-0.4); LYMPHOCYTES ABSOLUTE AUTO 3.68 K/uL (1.00-4.80); LYMPHOCYTES PERCENT AUTO 51.8 % (24.0-44.0); MEAN CORPUSCULAR HEMOGLOBIN 35.9 pg (28.0-32.0); MEAN CORPUSCULAR HGB CONC 36.8 g/dL (32.0-36.0); MEAN CORPUSCULAR VOLUME 97.7 fL (83.0-99.0); MEAN PLATELET VOLUME 9.9 fL (9.4-12.4); MONOCYTES ABSOLUTE AUTO 0.63 K/uL (0.00-0.80); MONOCYTES PERCENT AUTO 8.9 % (0.0-8.0); NEUTROPHILS ABSOLUTE AUTO 2.23 K/uL (1.80-7.70); NEUTROPHILS PERCENT AUTO 31.4 % (41.0-71.0); PLATELET COUNT,PLT 200 K/uL (150-400); RED BLOOD CELL COUNT 5.15 M/uL (4.52-5.90)
[2023-04-17 01:44] LABS: INR 0.96 (0.86-1.11)
[2023-04-17 02:01] LABS: LACTIC ACID 1.2 mmol/L (0.4-2.0)
[2023-04-17 02:05] LABS: A/G RATIO 1.1 (0.9-1.6); ALBUMIN 3.9 g/dL (3.4-5.0); BILIRUBIN TOTAL 0.1 mg/dL (0.2-1.0); CALCIUM 8.8 mg/dL (8.5-10.1); CARBON DIOXIDE,CO2 24.4 mmol/L (21.0-32.0); CREATININE 1.3 mg/dL (0.8-1.3); EST CRCL DRUG DOSING (CG) 92.03 mL/min; PROTEIN TOTAL,TP 7.6 g/dL (6.4-8.2)
== END 2023-04-17 04:41 | disposition home or self-care (01) ==
LOC: MW.ED 00:40
DX: F10.129 Alcohol abuse with intoxication, unspecified (principal); K29.20 Alcoholic gastritis without bleeding; F17.210 Nicotine dependence, cigarettes, uncomplicated; Z88.0 Allergy status to penicillin
CPT/HCPCS: 36415; 80053; 80307; 81003; 83605; 83690; 85025; 85610; 96361; 96374; 96375; 99284; J1170; J2060; J2405; J3490; J7030

== ENCOUNTER 2023-05-21 01:03 | Emergency (ER) | payer MEDICAID ==
[2023-05-21] MEDS: Sodium Chloride 0.9% 1,000 ML IV ONE (01:35)
[2023-05-21] MEDS: Sodium Chloride 0.9% 10 ML Syringe FLUSH PRN (01:36)
[2023-05-21] MEDS: Sodium Chloride 0.9% 2.5 ML Syringe FLUSH PRN (01:36)
[2023-05-21 01:39] LABS: BASOPHILS ABSOLUTE AUTO 0.08 K/uL (0.00-0.20); BASOPHILS PERCENT AUTO 1.3 % (0.0-1.0); EOSINOPHILS ABSOLUTE AUTO 0.24 K/uL (0.00-0.45); EOSINOPHILS PERCENT AUTO 3.8 % (0.0-6.0); HEMATOCRIT 48.8 % (42.0-52.0); IMMATURE GRAN ABSOLUTE AUTO 0.01 K/uL (0.00-0.05); IMMATURE GRAN PERCENT AUTO 0.2 % (0.0-0.4); LYMPHOCYTES ABSOLUTE AUTO 2.88 K/uL (1.00-4.80); LYMPHOCYTES PERCENT AUTO 46.2 % (24.0-44.0); MEAN CORPUSCULAR HEMOGLOBIN 34.5 pg (28.0-32.0); MEAN CORPUSCULAR HGB CONC 34.8 g/dL (32.0-36.0); MEAN PLATELET VOLUME 10.4 fL (9.4-12.4); MONOCYTES ABSOLUTE AUTO 0.46 K/uL (0.00-0.80); MONOCYTES PERCENT AUTO 7.4 % (0.0-8.0); NEUTROPHILS ABSOLUTE AUTO 2.57 K/uL (1.80-7.70); NEUTROPHILS PERCENT AUTO 41.1 % (41.0-71.0); PLATELET COUNT,PLT 196 K/uL (150-400); RED BLOOD CELL COUNT 4.93 M/uL (4.52-5.90); WHITE BLOOD CELL COUNT,WBC 6.24 K/uL (3.9-11.3)
[2023-05-21 01:51] LABS: ALBUMIN 3.8 g/dL (3.4-5.0); BILIRUBIN TOTAL 0.2 mg/dL (0.2-1.0); CALCIUM 8.3 mg/dL (8.5-10.1); CARBON DIOXIDE,CO2 22.2 mmol/L (21.0-32.0); CREATININE 1.2 mg/dL (0.8-1.3); EST CRCL DRUG DOSING (CG) 98.8 mL/min; POTASSIUM,K 4.4 mmol/L (3.5-5.1); PROTEIN TOTAL,TP 7.5 g/dL (6.4-8.2)
== END 2023-05-21 01:55 | disposition left against medical advice (07) ==
LOC: MW.ED 01:03
DX: R10.10 Upper abdominal pain, unspecified (principal); F10.920 Alcohol use, unspecified with intoxication, uncomplicated; R74.8 Abnormal levels of other serum enzymes; F17.210 Nicotine dependence, cigarettes, uncomplicated; Z79.899 Other long term (current) drug therapy; Z88.0 Allergy status to penicillin
CPT/HCPCS: 36415; 80053; 80307; 83690; 85025; 99284; J3490; J7030; 99282

== ENCOUNTER 2023-05-22 15:30 | Emergency (ER) | payer MEDICAID ==
[2023-05-22 15:45] LABS: APPEARANCE,URINE CLEAR; COLOR,URINE OTHER; GLUCOSE,URINE NEGATIVE (NEGATIVE); KETONES,URINE TRACE mg/dL (NEGATIVE); LEUKOCYTE ESTERASE,URINE NEGATIVE (NEGATIVE); NITRITE,URINE POSITIVE (NEGATIVE); OCCULT BLOOD,URINE SMALL (NEGATIVE); PROTEIN,URINE >=300 mg/dL (NEGATIVE); UROBILINOGEN,URINE 0.2 EU/dL (<2.0)
[2023-05-22 15:59] LABS: BILIRUBIN,URINE SMALL (NEGATIVE)
[2023-05-22 16:01] LABS: BACTERIA,URINE FEW (NEGATIVE); EPITHELIAL CELLS,URINE FEW (NONE-FEW)
== END 2023-05-22 16:34 | disposition left against medical advice (07) ==
LOC: MW.ED 15:30
DX: Z53.21 Procedure and treatment not carried out due to patient leaving prior to being seen by health care provider (principal)
CPT/HCPCS: 81001; 87086

== ENCOUNTER 2023-05-25 10:22 | Emergency (ER) | payer MEDICAID ==
[2023-05-25 10:44] LABS: APPEARANCE,URINE CLEAR; BILIRUBIN,URINE NEGATIVE (NEGATIVE); COLOR,URINE YELLOW; GLUCOSE,URINE NEGATIVE (NEGATIVE); KETONES,URINE NEGATIVE (NEGATIVE); LEUKOCYTE ESTERASE,URINE NEGATIVE (NEGATIVE); NITRITE,URINE NEGATIVE (NEGATIVE); OCCULT BLOOD,URINE NEGATIVE (NEGATIVE); PH,URINE 6.5 (5.0-8.0); PROTEIN,URINE NEGATIVE (NEGATIVE)
[2023-05-25] MEDS: Morphine 4 MG/ML Syringe IVPUSH ONE (12:26)
[2023-05-25] MEDS: Acetaminophen/HYDROcodone 325-5 MG Tab PO ONE (14:06)
== END 2023-05-25 14:23 | disposition home or self-care (01) ==
LOC: MW.ED 10:22
DX: M54.6 Pain in thoracic spine (principal); Z88.0 Allergy status to penicillin
CPT/HCPCS: 71045; 81003; 96374; 99285; A9270; J2270; 99284

== ENCOUNTER 2023-06-03 01:26 | Emergency (ER) | payer MEDICAID ==
[2023-06-03] MEDS: Ketorolac 60 MG/2 ML SDV IM ONE (01:47)
[2023-06-03 01:59] LABS: APPEARANCE,URINE CLEAR; BILIRUBIN,URINE NEGATIVE (NEGATIVE); COLOR,URINE YELLOW; GLUCOSE,URINE NEGATIVE (NEGATIVE); KETONES,URINE NEGATIVE (NEGATIVE); LEUKOCYTE ESTERASE,URINE TRACE (NEGATIVE); NITRITE,URINE NEGATIVE (NEGATIVE); OCCULT BLOOD,URINE NEGATIVE (NEGATIVE); PH,URINE 6.5 (5.0-8.0); PROTEIN,URINE NEGATIVE (NEGATIVE); UROBILINOGEN,URINE 0.2 EU/dL (<2.0)
[2023-06-03 02:05] LABS: BACTERIA,URINE RARE (NEGATIVE); EPITHELIAL CELLS,URINE RARE (NONE-FEW); RBC,URINE 0-1 (0-2/HPF); WBC,URINE 0-1 (0-5/HPF)
== END 2023-06-03 02:32 | disposition home or self-care (01) ==
LOC: MW.ED 01:26
DX: R10.9 Unspecified abdominal pain (principal); F10.120 Alcohol abuse with intoxication, uncomplicated; Z88.0 Allergy status to penicillin; Z88.1 Allergy status to other antibiotic agents; Z75.8 Other problems related to medical facilities and other health care
CPT/HCPCS: 81001; 96372; 99284; J1885; 99283

== ENCOUNTER 2023-07-29 13:26 | Emergency (ER) | payer MEDICAID ==
[2023-07-29] MEDS: Acetaminophen/HYDROcodone 325-5 MG Tab PO ONE (13:49)
[2023-07-29 13:56] LABS: BASOPHILS ABSOLUTE AUTO 0.06 K/uL (0.00-0.20); BASOPHILS PERCENT AUTO 0.8 % (0.0-1.0); EOSINOPHILS ABSOLUTE AUTO 0.19 K/uL (0.00-0.45); EOSINOPHILS PERCENT AUTO 2.6 % (0.0-6.0); HEMATOCRIT 43.5 % (42.0-52.0); HEMOGLOBIN 15.3 g/dL (14.0-18.0); IMMATURE GRAN ABSOLUTE AUTO 0.01 K/uL (0.00-0.05); IMMATURE GRAN PERCENT AUTO 0.1 % (0.0-0.4); LYMPHOCYTES ABSOLUTE AUTO 1.74 K/uL (1.00-4.80); LYMPHOCYTES PERCENT AUTO 24.2 % (24.0-44.0); MEAN CORPUSCULAR HEMOGLOBIN 33.8 pg (28.0-32.0); MEAN CORPUSCULAR HGB CONC 35.2 g/dL (32.0-36.0); MEAN CORPUSCULAR VOLUME 96.2 fL (83.0-99.0); MEAN PLATELET VOLUME 10.1 fL (9.4-12.4); MONOCYTES ABSOLUTE AUTO 0.53 K/uL (0.00-0.80); MONOCYTES PERCENT AUTO 7.4 % (0.0-8.0); NEUTROPHILS ABSOLUTE AUTO 4.66 K/uL (1.80-7.70); NEUTROPHILS PERCENT AUTO 64.9 % (41.0-71.0); PLATELET COUNT,PLT 215 K/uL (150-400); RED BLOOD CELL COUNT 4.52 M/uL (4.52-5.90); WHITE BLOOD CELL COUNT,WBC 7.19 K/uL (3.9-11.3)
[2023-07-29 13:58] LABS: APPEARANCE,URINE CLEAR; BILIRUBIN,URINE NEGATIVE (NEGATIVE); COLOR,URINE YELLOW; GLUCOSE,URINE NEGATIVE (NEGATIVE); KETONES,URINE NEGATIVE (NEGATIVE); LEUKOCYTE ESTERASE,URINE NEGATIVE (NEGATIVE); NITRITE,URINE NEGATIVE (NEGATIVE); OCCULT BLOOD,URINE NEGATIVE (NEGATIVE); PROTEIN,URINE 100 mg/dL (NEGATIVE); UROBILINOGEN,URINE 0.2 EU/dL (<2.0)
[2023-07-29 14:15] LABS: BACTERIA,URINE RARE (NEGATIVE); MUCUS,URINE LIGHT (NONE-MOD); RBC,URINE 0-1 (0-2/HPF); SQUAMOUS EPITHELIAL CELLS,UR NOT SEEN; WBC,URINE 0-1 (0-5/HPF)
[2023-07-29 14:20] LABS: A/G RATIO 1.1 (0.9-1.6); BILIRUBIN TOTAL 0.3 mg/dL (0.2-1.0); CALCIUM 9.2 mg/dL (8.5-10.1); CARBON DIOXIDE,CO2 25.2 mmol/L (21.0-32.0); CREATININE 1.3 mg/dL (0.8-1.3); EST CRCL DRUG DOSING (CG) 90.62 mL/min; PROTEIN TOTAL,TP 7.6 g/dL (6.4-8.2)
[2023-07-29] MEDS: Ketorolac 60 MG/2 ML SDV IM ONE (14:27)
== END 2023-07-29 15:20 | disposition home or self-care (01) ==
LOC: MW.ED 13:26
DX: I82.812 Embolism and thrombosis of superficial veins of left lower extremity (principal); Z88.0 Allergy status to penicillin; Z79.899 Other long term (current) drug therapy; Z86.19 Personal history of other infectious and parasitic diseases; Z75.8 Other problems related to medical facilities and other health care
CPT/HCPCS: 36415; 80053; 81001; 85025; 93971; 96372; 99284; A9270; J1885

== ENCOUNTER 2023-08-13 08:04 | Emergency (ER) | payer SELFPAY ==
[2023-08-13] MEDS: Ketorolac 30 MG/ML SDV IVPUSH ONE (08:37)
[2023-08-13] MEDS: Sodium Chloride 0.9% 10 ML Syringe FLUSH PRN (08:45)
[2023-08-13] MEDS: Sodium Chloride 0.9% 2.5 ML Syringe FLUSH PRN (08:45)
[2023-08-13 08:47] LABS: BASOPHILS ABSOLUTE AUTO 0.05 K/uL (0.00-0.20); BASOPHILS PERCENT AUTO 0.8 % (0.0-1.0); EOSINOPHILS ABSOLUTE AUTO 0.53 K/uL (0.00-0.45); EOSINOPHILS PERCENT AUTO 8.3 % (0.0-6.0); HEMATOCRIT 46.1 % (42.0-52.0); HEMOGLOBIN 15.5 g/dL (14.0-18.0); IMMATURE GRAN ABSOLUTE AUTO 0.02 K/uL (0.00-0.05); IMMATURE GRAN PERCENT AUTO 0.3 % (0.0-0.4); LYMPHOCYTES ABSOLUTE AUTO 1.51 K/uL (1.00-4.80); LYMPHOCYTES PERCENT AUTO 23.7 % (24.0-44.0); MEAN CORPUSCULAR HEMOGLOBIN 33.3 pg (28.0-32.0); MEAN CORPUSCULAR HGB CONC 33.6 g/dL (32.0-36.0); MEAN CORPUSCULAR VOLUME 98.9 fL (83.0-99.0); MEAN PLATELET VOLUME 10.3 fL (9.4-12.4); MONOCYTES ABSOLUTE AUTO 0.44 K/uL (0.00-0.80); MONOCYTES PERCENT AUTO 6.9 % (0.0-8.0); NEUTROPHILS ABSOLUTE AUTO 3.82 K/uL (1.80-7.70); PLATELET COUNT,PLT 180 K/uL (150-400); RED BLOOD CELL COUNT 4.66 M/uL (4.52-5.90); WHITE BLOOD CELL COUNT,WBC 6.37 K/uL (3.9-11.3)
[2023-08-13 09:01] LABS: INR 0.97 (0.86-1.11); PTT,PARTIAL THROMBOPLSTIN TIME 27.1 SEC (23.9-30.7)
[2023-08-13 09:11] LABS: A/G RATIO 0.9 (0.9-1.6); ALBUMIN 3.6 g/dL (3.4-5.0); BILIRUBIN TOTAL 0.3 mg/dL (0.2-1.0); CALCIUM 9.3 mg/dL (8.5-10.1); CARBON DIOXIDE,CO2 27.2 mmol/L (21.0-32.0); CREATININE 1.3 mg/dL (0.8-1.3); EST CRCL DRUG DOSING (CG) 87.2 mL/min; POTASSIUM,K 4.7 mmol/L (3.5-5.1); PROTEIN TOTAL,TP 7.4 g/dL (6.4-8.2)
[2023-08-13 10:05] LABS: APPEARANCE,URINE CLEAR; BILIRUBIN,URINE NEGATIVE (NEGATIVE); COLOR,URINE YELLOW; GLUCOSE,URINE NEGATIVE (NEGATIVE); KETONES,URINE NEGATIVE (NEGATIVE); LEUKOCYTE ESTERASE,URINE NEGATIVE (NEGATIVE); NITRITE,URINE NEGATIVE (NEGATIVE); OCCULT BLOOD,URINE NEGATIVE (NEGATIVE); PROTEIN,URINE NEGATIVE (NEGATIVE); UROBILINOGEN,URINE 0.2 EU/dL (<2.0)
[2023-08-13] MEDS: Acetaminophen/HYDROcodone 325-5 MG Tab PO ONE (10:20)
== END 2023-08-13 10:31 | disposition home or self-care (01) ==
LOC: MW.ED 08:04
DX: R10.30 Lower abdominal pain, unspecified (principal); Z88.0 Allergy status to penicillin; Z79.899 Other long term (current) drug therapy; Z75.8 Other problems related to medical facilities and other health care
CPT/HCPCS: 36415; 74176; 80053; 81003; 82550; 85025; 85610; 85730; 93970; 96374; 99284; A9270; J1885; J3490

== ENCOUNTER 2023-08-26 19:47 | Emergency (ER) | payer SELFPAY ==
[2023-08-26] MEDS ORDERED: Sodium Chloride 0.9% 20 ML SDV IV PRN (19:48)
[2023-08-26 20:01] LABS: BASOPHILS ABSOLUTE AUTO 0.06 K/uL (0.00-0.20); BASOPHILS PERCENT AUTO 0.7 % (0.0-1.0); EOSINOPHILS PERCENT AUTO 6.7 % (0.0-6.0); HEMATOCRIT 44.6 % (42.0-52.0); HEMOGLOBIN 15.4 g/dL (14.0-18.0); IMMATURE GRAN ABSOLUTE AUTO 0.02 K/uL (0.00-0.05); IMMATURE GRAN PERCENT AUTO 0.2 % (0.0-0.4); LYMPHOCYTES ABSOLUTE AUTO 1.91 K/uL (1.00-4.80); LYMPHOCYTES PERCENT AUTO 21.3 % (24.0-44.0); MEAN CORPUSCULAR HEMOGLOBIN 33.6 pg (28.0-32.0); MEAN CORPUSCULAR HGB CONC 34.5 g/dL (32.0-36.0); MEAN CORPUSCULAR VOLUME 97.4 fL (83.0-99.0); MEAN PLATELET VOLUME 10.2 fL (9.4-12.4); MONOCYTES ABSOLUTE AUTO 0.83 K/uL (0.00-0.80); MONOCYTES PERCENT AUTO 9.2 % (0.0-8.0); NEUTROPHILS ABSOLUTE AUTO 5.56 K/uL (1.80-7.70); NEUTROPHILS PERCENT AUTO 61.9 % (41.0-71.0); PLATELET COUNT,PLT 196 K/uL (150-400); RED BLOOD CELL COUNT 4.58 M/uL (4.52-5.90); WHITE BLOOD CELL COUNT,WBC 8.98 K/uL (3.9-11.3)
[2023-08-26 20:14] LABS: BASE EXCESS VENOUS -1.3 (-2.0-3.0); BICARBONATE,VENOUS 25 mEQ/mL (22-28); PCO2 VENOUS 45 mmHG (41-51); PH,VENOUS 7.35 (7.31-7.41); PO2 VENOUS < 30 mmHG (35-45)
[2023-08-26] MEDS: Iopamidol 755 MG/ML 500 ML Multipack Bottle IVPUSH ONE (20:15)
[2023-08-26] MEDS: Sodium Chloride 0.9% 1,000 ML IV ONE (20:23)
[2023-08-26 20:24] LABS: INR 0.97 (0.86-1.11); PTT,PARTIAL THROMBOPLSTIN TIME 28.2 SEC (23.9-30.7)
[2023-08-26] MEDS: Sodium Chloride 0.9% 2.5 ML Syringe FLUSH PRN (20:29)
[2023-08-26] MEDS: Sodium Chloride 0.9% 10 ML Syringe FLUSH PRN (20:29)
[2023-08-26] MEDS: Ondansetron 4 MG/2 ML SDV IVPUSH ONE ×2 (20:31→23:25)
[2023-08-26] MEDS: Midazolam 1 MG/ML 2 ML SDV IVPUSH ONE ×2 (20:31→23:39)
[2023-08-26 20:35] LABS: A/G RATIO 1.1 (0.9-1.6); ALANINE AMINOTRANSFERASE,ALT 24 IU/L (14-63); ALBUMIN 3.8 g/dL (3.4-5.0); ALKALINE PHOSPHATASE 62 U/L (46-116); ASPARTATE AMNIOTRANSFERASE,AST 19 IU/L (15-37); BILIRUBIN TOTAL 0.3 mg/dL (0.2-1.0); BLOOD UREA NITROGEN,BUN 16 mg/dL (7.0-18.0); CALCIUM 8.9 mg/dL (8.5-10.1); CARBON DIOXIDE,CO2 23.1 mmol/L (21.0-32.0); CHLORIDE,CL 103 mmol/L (98-107); CREATININE 1.4 mg/dL (0.8-1.3); GLUCOSE RANDOM 104 mg/dL (74-106); POTASSIUM,K 3.3 mmol/L (3.5-5.1); PROTEIN TOTAL,TP 7.4 g/dL (6.4-8.2); SODIUM,NA 139 mmol/L (136-148); TSH ULTRASENSITIVE 1.33 uIU/mL (0.36-3.74)
[2023-08-26 20:40] LABS: ESTIMATED GFR 69 mL/min (>60); ETHANOL BLOOD MEDICAL < 3.0 mg/dL
[2023-08-26 20:53] LABS: ACETAMINOPHEN <2.0 ug/mL; SALICYLATE 2.1 mg/dL (0.0-20.0)
[2023-08-26 21:06] LABS: APPEARANCE,URINE CLEAR; BILIRUBIN,URINE NEGATIVE (NEGATIVE); COLOR,URINE YELLOW; GLUCOSE,URINE NEGATIVE (NEGATIVE); KETONES,URINE NEGATIVE (NEGATIVE); LEUKOCYTE ESTERASE,URINE NEGATIVE (NEGATIVE); NITRITE,URINE NEGATIVE (NEGATIVE); OCCULT BLOOD,URINE NEGATIVE (NEGATIVE); PH,URINE 6.5 (5.0-8.0); PROTEIN,URINE NEGATIVE (NEGATIVE); UROBILINOGEN,URINE 0.2 EU/dL (<2.0)
[2023-08-26 21:12] LABS: AMPHETAMINES SCREEN, URINE NEGATIVE (CUTOFF=500); BARBITURATE SCREEN,URINE NEGATIVE (CUTOFF=200); BENZODIAZEPINES SCREEN,URINE NEGATIVE (CUTOFF=150); BUPRENORPHINE SCREEN,URINE NEGATIVE (CUTOFF=10); METHADONE SCREEN, URINE NEGATIVE (CUTOFF=200); METHAMPHETAMINES SCREEN, URINE NEGATIVE (CUTOFF=500); OXYCODONE SCREEN,URINE NEGATIVE (CUT0FF=100); PCP SCREEN,URINE NEGATIVE (CUTOFF=25); THC SCREEN,URINE 20 NG/ML PRESUMPTIVE POSITIVE (CUTOFF=50)
[2023-08-26] MEDS: Lactated Ringers 1,000 ML IV ONE (21:19)
[2023-08-26 21:35] LABS: RBC,URINE 0-2 (0-2/HPF); WBC,URINE 0-3 (0-5/HPF)
[2023-08-26 21:36] LABS: BACTERIA,URINE RARE (NEGATIVE); EPITHELIAL CELLS,URINE FEW (NONE-FEW)
[2023-08-26] MEDS ORDERED: Sodium Chloride 0.9% 1,000 ML IV SCH (22:30)
[2023-08-26] MEDS: propofoL 100 ML IV STA (23:24)
[2023-08-26] MEDS: Ketamine 500 mg/10 ML MDV IV ONE (23:24)
[2023-08-26] MEDS: fentaNYL/Normal Saline 2,500 MCG in Premix Bag 1 BAG IV STA (23:24)
[2023-08-26] MEDS: Rocuronium 100 MG/10 ML MDV IVPUSH ONE (23:25)
== END 2023-08-26 23:44 ==
LOC: MW.ED 19:47
DX: G93.40 Encephalopathy, unspecified (principal); Z75.8 Other problems related to medical facilities and other health care; Z79.899 Other long term (current) drug therapy; Z88.0 Allergy status to penicillin
CPT/HCPCS: 36415; 70450; 70496; 70498; 71045; 80053; 80143; 80179; 80305; 80307; 81001; 82550; 82803; 84443; 84484; 85025; 85610; 85730; 93005; 96361; 96365; 96375; 96376; 99285; J1953; J2250; J2405; J3490; J7030; J7060; J7120; Q9967; 93010; 99291

== ENCOUNTER 2023-10-03 14:08 | Emergency (ER) | payer SELFPAY ==
[2023-10-03 14:36] LABS: BASOPHILS ABSOLUTE AUTO 0.05 K/uL (0.00-0.20); BASOPHILS PERCENT AUTO 0.7 % (0.0-1.0); EOSINOPHILS ABSOLUTE AUTO 0.49 K/uL (0.00-0.45); EOSINOPHILS PERCENT AUTO 6.8 % (0.0-6.0); HEMATOCRIT 41.3 % (42.0-52.0); HEMOGLOBIN 14.5 g/dL (14.0-18.0); IMMATURE GRAN ABSOLUTE AUTO 0.01 K/uL (0.00-0.05); IMMATURE GRAN PERCENT AUTO 0.1 % (0.0-0.4); LYMPHOCYTES ABSOLUTE AUTO 2.07 K/uL (1.00-4.80); LYMPHOCYTES PERCENT AUTO 28.7 % (24.0-44.0); MEAN CORPUSCULAR HEMOGLOBIN 33.6 pg (28.0-32.0); MEAN CORPUSCULAR HGB CONC 35.1 g/dL (32.0-36.0); MEAN CORPUSCULAR VOLUME 95.8 fL (83.0-99.0); MEAN PLATELET VOLUME 10.2 fL (9.4-12.4); MONOCYTES ABSOLUTE AUTO 0.49 K/uL (0.00-0.80); MONOCYTES PERCENT AUTO 6.8 % (0.0-8.0); NEUTROPHILS PERCENT AUTO 56.9 % (41.0-71.0); PLATELET COUNT,PLT 171 K/uL (150-400); RED BLOOD CELL COUNT 4.31 M/uL (4.52-5.90); WHITE BLOOD CELL COUNT,WBC 7.21 K/uL (3.9-11.3)
[2023-10-03 14:57] LABS: INR 0.96 (0.86-1.11); PTT,PARTIAL THROMBOPLSTIN TIME 26.8 SEC (23.9-30.7)
[2023-10-03 14:58] LABS: ALBUMIN 3.4 g/dL (3.4-5.0); BILIRUBIN TOTAL 0.2 mg/dL (0.2-1.0); CALCIUM 8.6 mg/dL (8.5-10.1); CARBON DIOXIDE,CO2 24.5 mmol/L (21.0-32.0); CREATININE 1.4 mg/dL (0.8-1.3); EST CRCL DRUG DOSING (CG) 81.67 mL/min; PROTEIN TOTAL,TP 6.7 g/dL (6.4-8.2)
[2023-10-03] MEDS: Sodium Chloride 0.9% 1,000 ML IV STA ×2 (15:39→16:17)
[2023-10-03] MEDS: Ketorolac 30 MG/ML SDV IVPUSH STA (15:39)
[2023-10-03] MEDS: Ondansetron 4 MG/2 ML SDV IVPUSH STA (15:39)
[2023-10-03] MEDS: Morphine 4 MG/ML Syringe IVPUSH STA ×2 (15:39→16:17)
[2023-10-03 16:12] LABS: APPEARANCE,URINE CLEAR; BILIRUBIN,URINE NEGATIVE (NEGATIVE); COLOR,URINE YELLOW; GLUCOSE,URINE NEGATIVE (NEGATIVE); KETONES,URINE NEGATIVE (NEGATIVE); LEUKOCYTE ESTERASE,URINE NEGATIVE (NEGATIVE); NITRITE,URINE NEGATIVE (NEGATIVE); OCCULT BLOOD,URINE NEGATIVE (NEGATIVE); PH,URINE 5.5 (5.0-8.0); PROTEIN,URINE NEGATIVE (NEGATIVE); UROBILINOGEN,URINE 0.2 EU/dL (<2.0)
[2023-10-03] MEDS: oxyCODONE 5 MG Tab PO STA (18:15)
[2023-10-03] MEDS: Iopamidol 755 MG/ML 500 ML Multipack Bottle IVPUSH STA (19:05)
== END 2023-10-03 18:20 | disposition home or self-care (01) ==
LOC: MW.ED 14:08
DX: K40.90 Unilateral inguinal hernia, without obstruction or gangrene, not specified as recurrent (principal); K59.00 Constipation, unspecified; F17.210 Nicotine dependence, cigarettes, uncomplicated; Z88.0 Allergy status to penicillin; Z75.8 Other problems related to medical facilities and other health care
CPT/HCPCS: 36415; 74177; 80053; 81003; 83605; 83690; 85025; 85610; 85730; 96361; 96374; 96375; 96376; 99284; A9270; J1885; J2270; J2405; J7030; Q9967

== ENCOUNTER 2023-11-26 23:15 | Emergency (ER) | payer SELFPAY ==
[2023-11-26] MEDS: Morphine 4 MG/ML Syringe IVPUSH ONE (23:58)
[2023-11-26] MEDS: Sodium Chloride 0.9% 10 ML Syringe FLUSH PRN (23:59)
[2023-11-26] MEDS: Sodium Chloride 0.9% 2.5 ML Syringe FLUSH PRN (23:59)
[2023-11-27 00:08] LABS: BASOPHILS ABSOLUTE AUTO 0.05 K/uL (0.00-0.20); BASOPHILS PERCENT AUTO 0.8 % (0.0-1.0); EOSINOPHILS ABSOLUTE AUTO 0.37 K/uL (0.00-0.45); HEMATOCRIT 42.5 % (42.0-52.0); HEMOGLOBIN 14.9 g/dL (14.0-18.0); IMMATURE GRAN ABSOLUTE AUTO 0.01 K/uL (0.00-0.05); IMMATURE GRAN PERCENT AUTO 0.2 % (0.0-0.4); LYMPHOCYTES ABSOLUTE AUTO 2.56 K/uL (1.00-4.80); LYMPHOCYTES PERCENT AUTO 41.5 % (24.0-44.0); MEAN CORPUSCULAR HEMOGLOBIN 32.8 pg (28.0-32.0); MEAN CORPUSCULAR HGB CONC 35.1 g/dL (32.0-36.0); MEAN CORPUSCULAR VOLUME 93.6 fL (83.0-99.0); MEAN PLATELET VOLUME 10.5 fL (9.4-12.4); MONOCYTES ABSOLUTE AUTO 0.61 K/uL (0.00-0.80); MONOCYTES PERCENT AUTO 9.9 % (0.0-8.0); NEUTROPHILS ABSOLUTE AUTO 2.57 K/uL (1.80-7.70); NEUTROPHILS PERCENT AUTO 41.6 % (41.0-71.0); PLATELET COUNT,PLT 168 K/uL (150-400); RED BLOOD CELL COUNT 4.54 M/uL (4.52-5.90); WHITE BLOOD CELL COUNT,WBC 6.17 K/uL (3.9-11.3)
[2023-11-27 00:28] LABS: A/G RATIO 1.2 (0.9-1.6); ALBUMIN 3.8 g/dL (3.4-5.0); BILIRUBIN TOTAL 0.3 mg/dL (0.2-1.0); CREATININE 1.4 mg/dL (0.8-1.3); EST CRCL DRUG DOSING (CG) 81.67 mL/min; POTASSIUM,K 3.8 mmol/L (3.5-5.1); PROTEIN TOTAL,TP 6.9 g/dL (6.4-8.2)
[2023-11-27 00:48] LABS: APPEARANCE,URINE CLEAR; BILIRUBIN,URINE NEGATIVE (NEGATIVE); COLOR,URINE YELLOW; GLUCOSE,URINE NEGATIVE (NEGATIVE); KETONES,URINE NEGATIVE (NEGATIVE); LEUKOCYTE ESTERASE,URINE NEGATIVE (NEGATIVE); NITRITE,URINE NEGATIVE (NEGATIVE); OCCULT BLOOD,URINE NEGATIVE (NEGATIVE); PH,URINE 6.5 (5.0-8.0); PROTEIN,URINE NEGATIVE (NEGATIVE); UROBILINOGEN,URINE 0.2 EU/dL (<2.0)
[2023-11-27] MEDS: Iopamidol 755 MG/ML 500 ML Multipack Bottle IVPUSH ONE (01:00)
== END 2023-11-27 01:37 | disposition home or self-care (01) ==
LOC: MW.ED 23:15
DX: R10.31 Right lower quadrant pain (principal); Z88.0 Allergy status to penicillin; Z88.1 Allergy status to other antibiotic agents; Z75.8 Other problems related to medical facilities and other health care
CPT/HCPCS: 36415; 74177; 80053; 81003; 85025; 96374; 99284; J2270; J3490; Q9967

== ENCOUNTER 2024-03-31 17:26 | Emergency (ER) | payer SELFPAY ==
[2024-03-31] MEDS ORDERED: Iopamidol 755 MG/ML 500 ML Multipack Bottle IVPUSH ONE (19:27)
[2024-03-31] MEDS: Ondansetron 4 MG/2 ML SDV IVPUSH ONE (19:34)
[2024-03-31] MEDS: Ketorolac 30 MG/ML SDV IVPUSH ONE (19:36)
[2024-03-31] MEDS: Sodium Chloride 0.9% 1,000 ML IV ONE (19:36)
[2024-03-31] MEDS: Morphine 4 MG/ML Syringe IVPUSH ONE (19:36)
[2024-03-31] MEDS: Sodium Chloride 0.9% 10 ML Syringe FLUSH PRN (19:37)
[2024-03-31] MEDS: Sodium Chloride 0.9% 2.5 ML Syringe FLUSH PRN (19:37)
[2024-03-31 19:46] LABS: BASOPHILS ABSOLUTE AUTO 0.07 K/uL (0.00-0.20); BASOPHILS PERCENT AUTO 0.8 % (0.0-1.0); EOSINOPHILS ABSOLUTE AUTO 0.43 K/uL (0.00-0.45); HEMATOCRIT 45.6 % (42.0-52.0); HEMOGLOBIN 15.9 g/dL (14.0-18.0); IMMATURE GRAN ABSOLUTE AUTO 0.03 K/uL (0.00-0.05); IMMATURE GRAN PERCENT AUTO 0.3 % (0.0-0.4); LYMPHOCYTES ABSOLUTE AUTO 2.07 K/uL (1.00-4.80); LYMPHOCYTES PERCENT AUTO 24.1 % (24.0-44.0); MEAN CORPUSCULAR HEMOGLOBIN 33.3 pg (28.0-32.0); MEAN CORPUSCULAR HGB CONC 34.9 g/dL (32.0-36.0); MEAN CORPUSCULAR VOLUME 95.4 fL (83.0-99.0); MEAN PLATELET VOLUME 9.9 fL (9.4-12.4); MONOCYTES ABSOLUTE AUTO 0.64 K/uL (0.00-0.80); MONOCYTES PERCENT AUTO 7.5 % (0.0-8.0); NEUTROPHILS ABSOLUTE AUTO 5.34 K/uL (1.80-7.70); NEUTROPHILS PERCENT AUTO 62.3 % (41.0-71.0); PLATELET COUNT,PLT 260 K/uL (150-400); RED BLOOD CELL COUNT 4.78 M/uL (4.52-5.90); WHITE BLOOD CELL COUNT,WBC 8.58 K/uL (3.9-11.3)
[2024-03-31 19:48] LABS: APPEARANCE,URINE CLEAR; BILIRUBIN,URINE NEGATIVE (NEGATIVE); COLOR,URINE YELLOW; GLUCOSE,URINE NEGATIVE (NEGATIVE); KETONES,URINE NEGATIVE (NEGATIVE); LEUKOCYTE ESTERASE,URINE NEGATIVE (NEGATIVE); NITRITE,URINE NEGATIVE (NEGATIVE); OCCULT BLOOD,URINE NEGATIVE (NEGATIVE); PROTEIN,URINE 100 mg/dL (NEGATIVE); UROBILINOGEN,URINE 0.2 EU/dL (<2.0)
[2024-03-31 20:22] LABS: ALBUMIN 3.7 g/dL (3.4-5.0); BILIRUBIN TOTAL 0.2 mg/dL (0.2-1.0); CALCIUM 9.2 mg/dL (8.5-10.1); CARBON DIOXIDE,CO2 28.9 mmol/L (21.0-32.0); CREATININE 1.2 mg/dL (0.8-1.3); EST CRCL DRUG DOSING (CG) 98.8 mL/min; POTASSIUM,K 4.1 mmol/L (3.5-5.1); PROTEIN TOTAL,TP 7.5 g/dL (6.4-8.2)
[2024-03-31 20:50] LABS: BACTERIA,URINE RARE (NEGATIVE); EPITHELIAL CELLS,URINE NOT SEEN (NONE-FEW); MUCUS,URINE LIGHT (NONE-MOD); TRIPLE PHOSPHATE CRYSTALS,UR 3 (NEGATIVE); WBC,URINE 0-1 (0-5/HPF)
== END 2024-03-31 20:18 | disposition left against medical advice (07) ==
LOC: MW.ED 17:26
DX: R10.11 Right upper quadrant pain (principal); Z88.0 Allergy status to penicillin; Z79.899 Other long term (current) drug therapy
CPT/HCPCS: 36415; 80053; 81001; 83690; 85025; 87428; 96361; 96374; 96375; 99284; J1885; J2270; J2405; J7030; J3490

== ENCOUNTER 2024-04-11 01:24 | Emergency (ER) | payer SELFPAY | END 2024-04-11 01:38 | disposition left against medical advice (07) | LOC: MW.ED 01:24 | DX: Z53.21 Procedure and treatment not carried out due to patient leaving prior to being seen by health care provider (principal) ==

== ENCOUNTER 2024-04-21 17:29 | Emergency (ER) | payer SELFPAY | END 2024-04-21 17:40 | disposition left against medical advice (07) | LOC: MW.ED 17:29 | DX: Z53.21 Procedure and treatment not carried out due to patient leaving prior to being seen by health care provider (principal) ==

== ENCOUNTER 2024-04-21 18:58 | Emergency (ER) | payer SELFPAY ==
[2024-04-21 19:27] LABS: BILIRUBIN,URINE NEGATIVE (NEGATIVE); COLOR,URINE YELLOW; GLUCOSE,URINE NEGATIVE (NEGATIVE); KETONES,URINE NEGATIVE (NEGATIVE); LEUKOCYTE ESTERASE,URINE NEGATIVE (NEGATIVE); NITRITE,URINE NEGATIVE (NEGATIVE); OCCULT BLOOD,URINE TRACE-INTACT (NEGATIVE); PROTEIN,URINE 100 mg/dL (NEGATIVE); UROBILINOGEN,URINE 0.2 EU/dL (<2.0)
[2024-04-21 19:28] LABS: APPEARANCE,URINE HAZY
[2024-04-21 19:31] LABS: BACTERIA,URINE RARE (NEGATIVE); EPITHELIAL CELLS,URINE NOT SEEN (NONE-FEW); HYALINE CASTS,URINE 0-1 (0-2/LPF); MUCUS,URINE LIGHT (NONE-MOD); WBC,URINE 0-1 (0-5/HPF)
[2024-04-21 19:36] LABS: AMPHETAMINES SCREEN, URINE NEGATIVE (CUTOFF=500); BARBITURATE SCREEN,URINE NEGATIVE (CUTOFF=200); BENZODIAZEPINES SCREEN,URINE NEGATIVE (CUTOFF=150); BUPRENORPHINE SCREEN,URINE NEGATIVE (CUTOFF=10); METHADONE SCREEN, URINE NEGATIVE (CUTOFF=200); METHAMPHETAMINES SCREEN, URINE NEGATIVE (CUTOFF=500); OXYCODONE SCREEN,URINE NEGATIVE (CUT0FF=100); PCP SCREEN,URINE NEGATIVE (CUTOFF=25); THC SCREEN,URINE 20 NG/ML PRESUMPTIVE POSITIVE (CUTOFF=50)
== END 2024-04-21 19:19 | disposition left against medical advice (07) ==
LOC: MW.ED 18:58
DX: R40.4 Transient alteration of awareness (principal); Z88.0 Allergy status to penicillin; Z79.899 Other long term (current) drug therapy; Z75.8 Other problems related to medical facilities and other health care
CPT/HCPCS: 80305-QW; 81001; 99283; 99285

== ENCOUNTER 2024-05-29 16:20 | Emergency (ER) | payer SELFPAY | END 2024-05-29 16:44 | disposition left against medical advice (07) | LOC: MW.ED 16:20 | DX: Z53.21 Procedure and treatment not carried out due to patient leaving prior to being seen by health care provider (principal) | CPT/HCPCS: 73564-26-LT; 73564-LT ==

== ENCOUNTER 2024-06-01 01:38 | Emergency (ER) | payer SELFPAY ==
[2024-06-01] MEDS: Ondansetron 4 MG Tab.DIS PO ONE (02:10)
[2024-06-01] MEDS: fentaNYL 50 MCG/ML SDV IM ONE (02:11)
== END 2024-06-01 02:23 | disposition left against medical advice (07) ==
LOC: MW.ED 01:38
DX: M25.562 Pain in left knee (principal); R11.2 Nausea with vomiting, unspecified; F17.210 Nicotine dependence, cigarettes, uncomplicated; Z88.0 Allergy status to penicillin; Z88.1 Allergy status to other antibiotic agents; Z75.8 Other problems related to medical facilities and other health care
CPT/HCPCS: 96372; 99284; A9270; J3010; 99283

== ENCOUNTER 2024-06-12 23:03 | Emergency (ER) | payer SELFPAY | END 2024-06-13 00:50 | disposition home or self-care (01) | LOC: MW.ED 23:03 | DX: S83.92XA Sprain of unspecified site of left knee, initial encounter (principal); Z88.0 Allergy status to penicillin; X50.1XXA Overexertion from prolonged static or awkward postures, initial encounter | CPT/HCPCS: 73562-26-LT; 73562-LT; 99283 ==

== ENCOUNTER 2024-06-25 19:47 | Emergency (ER) | payer SELFPAY ==
[2024-06-25] MEDS ORDERED: Sodium Chloride 0.9% 10 ML Syringe FLUSH PRN (19:56)
[2024-06-25] MEDS ORDERED: Sodium Chloride 0.9% 2.5 ML Syringe FLUSH PRN (19:56)
[2024-06-25] MEDS: Sodium Chloride 0.9% 1,000 ML IV ONE (20:20)
[2024-06-25 20:41] LABS: BASOPHILS ABSOLUTE AUTO 0.05 K/uL (0.00-0.20); BASOPHILS PERCENT AUTO 0.8 % (0.0-1.0); EOSINOPHILS ABSOLUTE AUTO 0.15 K/uL (0.00-0.45); EOSINOPHILS PERCENT AUTO 2.4 % (0.0-6.0); HEMATOCRIT 58.3 % (42.0-52.0); HEMOGLOBIN 21.4 g/dL (14.0-18.0); IMMATURE GRAN ABSOLUTE AUTO 0.02 K/uL (0.00-0.05); IMMATURE GRAN PERCENT AUTO 0.3 % (0.0-0.4); LYMPHOCYTES ABSOLUTE AUTO 1.96 K/uL (1.00-4.80); LYMPHOCYTES PERCENT AUTO 31.2 % (24.0-44.0); MEAN CORPUSCULAR HEMOGLOBIN 33.4 pg (28.0-32.0); MEAN CORPUSCULAR HGB CONC 36.7 g/dL (32.0-36.0); MEAN CORPUSCULAR VOLUME 91.1 fL (83.0-99.0); MEAN PLATELET VOLUME 9.6 fL (9.4-12.4); MONOCYTES ABSOLUTE AUTO 0.57 K/uL (0.00-0.80); MONOCYTES PERCENT AUTO 9.1 % (0.0-8.0); NEUTROPHILS ABSOLUTE AUTO 3.54 K/uL (1.80-7.70); NEUTROPHILS PERCENT AUTO 56.2 % (41.0-71.0); PLATELET COUNT,PLT 202 K/uL (150-400); WHITE BLOOD CELL COUNT,WBC 6.29 K/uL (3.9-11.3)
[2024-06-25] MEDS: Ketorolac 30 MG/ML SDV IVPUSH ONE (20:43)
[2024-06-25] MEDS: Ondansetron 4 MG/2 ML SDV IVPUSH ONE (20:43)
[2024-06-25] MEDS: Lidocaine 4% Patch TOP STA (20:44)
[2024-06-25 21:05] LABS: A/G RATIO 0.8 (0.9-1.6); ALBUMIN 3.6 g/dL (3.4-5.0); BILIRUBIN TOTAL 0.5 mg/dL (0.2-1.0); CALCIUM 8.9 mg/dL (8.5-10.1); CARBON DIOXIDE,CO2 25.9 mmol/L (21.0-32.0); CREATININE 1.3 mg/dL (0.8-1.3); EST CRCL DRUG DOSING (CG) 82.1 mL/min; MAGNESIUM 1.9 mg/dL (1.8-2.4); POTASSIUM,K 3.3 mmol/L (3.5-5.1); PROTEIN TOTAL,TP 7.9 g/dL (6.4-8.2)
[2024-06-25 22:32] LABS: APPEARANCE,URINE CLEAR; BILIRUBIN,URINE NEGATIVE (NEGATIVE); COLOR,URINE YELLOW; GLUCOSE,URINE NEGATIVE (NEGATIVE); KETONES,URINE NEGATIVE (NEGATIVE); LEUKOCYTE ESTERASE,URINE NEGATIVE (NEGATIVE); NITRITE,URINE NEGATIVE (NEGATIVE); OCCULT BLOOD,URINE TRACE-INTACT (NEGATIVE); PROTEIN,URINE >=300 mg/dL (NEGATIVE)
[2024-06-25] MEDS: Acetaminophen 500 MG Tab PO ONE (22:38)
[2024-06-25] MEDS: Alum Hydrox/Mag Hydrox/Simeth 15 ML, Lidocaine 2% 5 ML PO ONE (22:38)
[2024-06-25 22:41] LABS: EPITHELIAL CELLS,URINE RARE (NONE-FEW); RBC,URINE 0-3 (0-2/HPF); WBC,URINE 0-1 (0-5/HPF)
[2024-06-25 22:42] LABS: BACTERIA,URINE RARE (NEGATIVE)
== END 2024-06-25 23:09 | disposition home or self-care (01) ==
LOC: MW.ED 19:47
DX: R07.9 Chest pain, unspecified (principal); Z88.0 Allergy status to penicillin; Z88.1 Allergy status to other antibiotic agents; Z79.899 Other long term (current) drug therapy
CPT/HCPCS: 36415; 71045; 71275; 80053; 80307; 81001; 83690; 83735; 84484; 85025; 85379; 93005; 96361; 96374; 96375; 99285; A9270; J1885; J2405; J7030

== ENCOUNTER 2024-07-08 21:37 | Emergency (ER) | payer SELFPAY | END 2024-07-08 22:53 | disposition left against medical advice (07) | LOC: MW.ED 21:37 | DX: Z53.21 Procedure and treatment not carried out due to patient leaving prior to being seen by health care provider (principal) ==

== ENCOUNTER 2024-07-10 10:37 | Inpatient (IN) | payer SELFPAY ==
[2024-07-10] MEDS: Sodium Chloride 0.9% 1,000 ML IV ONE (10:53)
[2024-07-10] MEDS: LORazepam 2 MG/ML SDV IVPUSH ONE (10:54)
[2024-07-10 11:17] LABS: BASOPHILS ABSOLUTE AUTO 0.03 K/uL (0.00-0.20); BASOPHILS PERCENT AUTO 0.5 % (0.0-1.0); EOSINOPHILS ABSOLUTE AUTO 0.11 K/uL (0.00-0.45); EOSINOPHILS PERCENT AUTO 1.8 % (0.0-6.0); HEMATOCRIT 43.3 % (42.0-52.0); HEMOGLOBIN 15.8 g/dL (14.0-18.0); IMMATURE GRAN ABSOLUTE AUTO 0.04 K/uL (0.00-0.05); IMMATURE GRAN PERCENT AUTO 0.6 % (0.0-0.4); LYMPHOCYTES PERCENT AUTO 15.9 % (24.0-44.0); MEAN CORPUSCULAR HGB CONC 36.5 g/dL (32.0-36.0); MEAN CORPUSCULAR VOLUME 93.1 fL (83.0-99.0); MEAN PLATELET VOLUME 9.7 fL (9.4-12.4); MONOCYTES ABSOLUTE AUTO 0.51 K/uL (0.00-0.80); MONOCYTES PERCENT AUTO 8.1 % (0.0-8.0); NEUTROPHILS ABSOLUTE AUTO 4.59 K/uL (1.80-7.70); NEUTROPHILS PERCENT AUTO 73.1 % (41.0-71.0); PLATELET COUNT,PLT 114 K/uL (150-400); RED BLOOD CELL COUNT 4.65 M/uL (4.52-5.90); WHITE BLOOD CELL COUNT,WBC 6.28 K/uL (3.9-11.3)
[2024-07-10 11:35] LABS: CHLORIDE,CL 93 mmol/L (98-107); SODIUM,NA 134 mmol/L (136-148)
[2024-07-10 11:36] LABS: A/G RATIO 0.8 (0.9-1.6); ALANINE AMINOTRANSFERASE,ALT 44 IU/L (14-63); ALKALINE PHOSPHATASE 121 U/L (46-116); ASPARTATE AMNIOTRANSFERASE,AST 61 IU/L (15-37); BILIRUBIN TOTAL 0.7 mg/dL (0.2-1.0); BLOOD UREA NITROGEN,BUN 22 mg/dL (7.0-18.0); CALCIUM 8.8 mg/dL (8.5-10.1); CARBON DIOXIDE,CO2 28.4 mmol/L (21.0-32.0); CREATININE 1.7 mg/dL (0.8-1.3); EST CRCL DRUG DOSING (CG) 58.86 mL/min; ESTIMATED GFR 55 mL/min (>60); ETHANOL BLOOD MEDICAL < 3.0 mg/dL; GLUCOSE RANDOM 147 mg/dL (74-106); PROTEIN TOTAL,TP 6.8 g/dL (6.4-8.2)
[2024-07-10] MEDS: Potassium Chloride 20 MEQ Tab.ER PO ONE (11:43)
[2024-07-10] MEDS: Lidocaine 4% Patch TOP STA (11:50)
[2024-07-10] MEDS: Acetaminophen 500 MG Tab PO ONE (11:50)
[2024-07-10 12:47] LABS: BILIRUBIN,URINE NEGATIVE (NEGATIVE); COLOR,URINE YELLOW; GLUCOSE,URINE NEGATIVE (NEGATIVE); KETONES,URINE NEGATIVE (NEGATIVE); LEUKOCYTE ESTERASE,URINE NEGATIVE (NEGATIVE); NITRITE,URINE NEGATIVE (NEGATIVE); OCCULT BLOOD,URINE SMALL (NEGATIVE); PH,URINE 6.5 (5.0-8.0); PROTEIN,URINE >=300 mg/dL (NEGATIVE)
[2024-07-10 12:55] LABS: APPEARANCE,URINE HAZY; BACTERIA,URINE FEW (NEGATIVE); EPITHELIAL CELLS,URINE OCCASIONAL (NONE-FEW); WBC,URINE 0-2 (0-5/HPF)
[2024-07-10 13:01] LABS: AMPHETAMINES SCREEN, URINE NEGATIVE (CUTOFF=500); BARBITURATE SCREEN,URINE NEGATIVE (CUTOFF=200); BENZODIAZEPINES SCREEN,URINE PRESUMPTIVE POSITIVE (CUTOFF=150); BUPRENORPHINE SCREEN,URINE NEGATIVE (CUTOFF=10); METHADONE SCREEN, URINE NEGATIVE (CUTOFF=200); METHAMPHETAMINES SCREEN, URINE NEGATIVE (CUTOFF=500); OXYCODONE SCREEN,URINE NEGATIVE (CUT0FF=100); PCP SCREEN,URINE NEGATIVE (CUTOFF=25); THC SCREEN,URINE 20 NG/ML PRESUMPTIVE POSITIVE (CUTOFF=50)
[2024-07-10] MEDS ORDERED: Acetaminophen 325 MG Tab PO PRN (15:15)
[2024-07-10] MEDS ORDERED: Polyethylene Glycol 3350 Powder 17 GM Packet PO PRN (15:15)
[2024-07-10] MEDS ORDERED: Sodium Chloride 0.9% 1,000 ML IV SCH (15:15)
[2024-07-10] MEDS: Thiamine 200 MG/2 ML MDV IVPUSH SCH (15:47)
[2024-07-10] MEDS: Folic Acid 1 MG/0.2 ML UD Syringe IV SCH (15:47)
[2024-07-10] MEDS: Enoxaparin 40 MG/0.4 ML Syringe SUBCUT SCH (15:47)
[2024-07-10] MEDS: Magnesium Sulf/Wat 2 GM/50 mL 2 GM in Premix Bag 1 BAG IV ONE (15:51)
[2024-07-10] MEDS: Pantoprazole 40 MG in Sodium Chloride 0.9% 10 ML IVPUSH SCH (15:52)
[2024-07-10] MEDS: levETIRAcetam Soln 500 MG/5 ML Cup PO SCH (18:10)
[2024-07-10] MEDS: LORazepam 2 MG/ML SDV IVPUSH PRN (18:23)
[2024-07-10] MEDS: Ketorolac 10 MG Tab PO PRN (18:25)
[2024-07-10 20:33] LABS: CALCIUM 8.2 mg/dL (8.5-10.1); CARBON DIOXIDE,CO2 27.8 mmol/L (21.0-32.0); CREATININE 1.3 mg/dL (0.8-1.3); EST CRCL DRUG DOSING (CG) 76.98 mL/min; POTASSIUM,K 2.9 mmol/L (3.5-5.1)
[2024-07-10] MEDS: Potassium Chloride 10 MEQ in Premix Bag 1 BAG IV SCH (21:44)
[2024-07-11 06:22] LABS: BASOPHILS ABSOLUTE AUTO 0.03 K/uL (0.00-0.20); BASOPHILS PERCENT AUTO 0.7 % (0.0-1.0); EOSINOPHILS ABSOLUTE AUTO 0.18 K/uL (0.00-0.45); EOSINOPHILS PERCENT AUTO 4.2 % (0.0-6.0); HEMATOCRIT 37.3 % (42.0-52.0); HEMOGLOBIN 13.5 g/dL (14.0-18.0); IMMATURE GRAN ABSOLUTE AUTO 0.02 K/uL (0.00-0.05); IMMATURE GRAN PERCENT AUTO 0.5 % (0.0-0.4); LYMPHOCYTES ABSOLUTE AUTO 0.95 K/uL (1.00-4.80); LYMPHOCYTES PERCENT AUTO 22.4 % (24.0-44.0); MEAN CORPUSCULAR HEMOGLOBIN 33.8 pg (28.0-32.0); MEAN CORPUSCULAR HGB CONC 36.2 g/dL (32.0-36.0); MEAN CORPUSCULAR VOLUME 93.5 fL (83.0-99.0); MEAN PLATELET VOLUME 10.1 fL (9.4-12.4); MONOCYTES ABSOLUTE AUTO 0.43 K/uL (0.00-0.80); MONOCYTES PERCENT AUTO 10.1 % (0.0-8.0); NEUTROPHILS ABSOLUTE AUTO 2.64 K/uL (1.80-7.70); NEUTROPHILS PERCENT AUTO 62.1 % (41.0-71.0); PLATELET COUNT,PLT 108 K/uL (150-400); RED BLOOD CELL COUNT 3.99 M/uL (4.52-5.90); WHITE BLOOD CELL COUNT,WBC 4.25 K/uL (3.9-11.3)
[2024-07-11 07:11] LABS: A/G RATIO 0.8 (0.9-1.6); ALBUMIN 2.4 g/dL (3.4-5.0); BILIRUBIN TOTAL 0.5 mg/dL (0.2-1.0); CALCIUM 8.2 mg/dL (8.5-10.1); CARBON DIOXIDE,CO2 26.3 mmol/L (21.0-32.0); CREATININE 1.1 mg/dL (0.8-1.3); EST CRCL DRUG DOSING (CG) 90.97 mL/min; POTASSIUM,K 3.2 mmol/L (3.5-5.1); PROTEIN TOTAL,TP 5.6 g/dL (6.4-8.2)
[2024-07-11] MEDS: Potassium Chloride 20 MEQ Tab.ER PO ONE (08:14)
[2024-07-11] MEDS: Ondansetron 4 MG Tab.DIS PO PRN (08:38)
[2024-07-11] MEDS: NS with KCl 40mEq 1,000 ML IV SCH (09:33)
[2024-07-11] MEDS: Diazepam 2 MG Tab PO SCH (09:33)
[2024-07-12] MEDS: fentaNYL 50 MCG/ML SDV IVPUSH PRN (00:36)
[2024-07-12 01:50] LABS: A/G RATIO 1.1 (0.9-1.6); ALBUMIN 3.2 g/dL (3.4-5.0); BILIRUBIN TOTAL 0.3 mg/dL (0.2-1.0); PROTEIN TOTAL,TP 6.1 g/dL (6.4-8.2)
[2024-07-12 02:28] LABS: BILIRUBIN DIRECT 0.1 mg/dL (0.0-0.5); BILIRUBIN INDIRECT 0.2
[2024-07-12] MEDS: fentaNYL 50 MCG/ML SDV IVPUSH ONE (04:39)
[2024-07-12 06:26] LABS: BASOPHILS ABSOLUTE AUTO 0.03 K/uL (0.00-0.20); BASOPHILS PERCENT AUTO 0.6 % (0.0-1.0); EOSINOPHILS ABSOLUTE AUTO 0.19 K/uL (0.00-0.45); EOSINOPHILS PERCENT AUTO 3.8 % (0.0-6.0); HEMATOCRIT 38.1 % (42.0-52.0); HEMOGLOBIN 13.6 g/dL (14.0-18.0); IMMATURE GRAN ABSOLUTE AUTO 0.02 K/uL (0.00-0.05); IMMATURE GRAN PERCENT AUTO 0.4 % (0.0-0.4); LYMPHOCYTES PERCENT AUTO 23.9 % (24.0-44.0); MEAN CORPUSCULAR HEMOGLOBIN 33.9 pg (28.0-32.0); MEAN CORPUSCULAR HGB CONC 35.7 g/dL (32.0-36.0); MEAN PLATELET VOLUME 10.1 fL (9.4-12.4); MONOCYTES ABSOLUTE AUTO 0.69 K/uL (0.00-0.80); MONOCYTES PERCENT AUTO 13.7 % (0.0-8.0); NEUTROPHILS PERCENT AUTO 57.6 % (41.0-71.0); PLATELET COUNT,PLT 123 K/uL (150-400); RED BLOOD CELL COUNT 4.01 M/uL (4.52-5.90); WHITE BLOOD CELL COUNT,WBC 5.03 K/uL (3.9-11.3)
[2024-07-12 06:56] LABS: A/G RATIO 0.7 (0.9-1.6); ALBUMIN 2.6 g/dL (3.4-5.0); BILIRUBIN TOTAL 0.4 mg/dL (0.2-1.0); CALCIUM 8.6 mg/dL (8.5-10.1); CARBON DIOXIDE,CO2 23.3 mmol/L (21.0-32.0); EST CRCL DRUG DOSING (CG) 100.07 mL/min; MAGNESIUM 1.6 mg/dL (1.8-2.4); PHOSPHORUS 3.6 mg/dL (2.6-4.7); PROTEIN TOTAL,TP 6.2 g/dL (6.4-8.2)
[2024-07-12] MEDS: Losartan 25 MG Tab PO ONE (11:00)
[2024-07-12] MEDS: Magnesium Oxide 400 MG Tab PO ONE (17:22)
[2024-07-13] MEDS: Melatonin 3 MG Tab PO PRN (01:48)
[2024-07-13 09:56] LABS: BASOPHILS ABSOLUTE AUTO 0.03 K/uL (0.00-0.20); BASOPHILS PERCENT AUTO 0.7 % (0.0-1.0); EOSINOPHILS ABSOLUTE AUTO 0.17 K/uL (0.00-0.45); EOSINOPHILS PERCENT AUTO 3.9 % (0.0-6.0); HEMATOCRIT 37.9 % (42.0-52.0); HEMOGLOBIN 13.8 g/dL (14.0-18.0); IMMATURE GRAN ABSOLUTE AUTO 0.01 K/uL (0.00-0.05); IMMATURE GRAN PERCENT AUTO 0.2 % (0.0-0.4); LYMPHOCYTES ABSOLUTE AUTO 1.26 K/uL (1.00-4.80); LYMPHOCYTES PERCENT AUTO 28.6 % (24.0-44.0); MEAN CORPUSCULAR HEMOGLOBIN 34.3 pg (28.0-32.0); MEAN CORPUSCULAR HGB CONC 36.4 g/dL (32.0-36.0); MEAN CORPUSCULAR VOLUME 94.3 fL (83.0-99.0); MEAN PLATELET VOLUME 9.5 fL (9.4-12.4); MONOCYTES ABSOLUTE AUTO 0.73 K/uL (0.00-0.80); MONOCYTES PERCENT AUTO 16.6 % (0.0-8.0); PLATELET COUNT,PLT 143 K/uL (150-400); RED BLOOD CELL COUNT 4.02 M/uL (4.52-5.90)
[2024-07-13] MEDS: Diazepam 5 MG Tab PO SCH (09:58)
[2024-07-13 10:52] LABS: A/G RATIO 0.7 (0.9-1.6); ALBUMIN 2.5 g/dL (3.4-5.0); BILIRUBIN TOTAL 0.3 mg/dL (0.2-1.0); CALCIUM 8.6 mg/dL (8.5-10.1); CREATININE 1.1 mg/dL (0.8-1.3); EST CRCL DRUG DOSING (CG) 90.97 mL/min; MAGNESIUM 1.5 mg/dL (1.8-2.4); POTASSIUM,K 3.7 mmol/L (3.5-5.1); PROTEIN TOTAL,TP 6.1 g/dL (6.4-8.2)
[2024-07-14 06:03] LABS: BASOPHILS ABSOLUTE AUTO 0.05 K/uL (0.00-0.20); EOSINOPHILS ABSOLUTE AUTO 0.22 K/uL (0.00-0.45); EOSINOPHILS PERCENT AUTO 4.4 % (0.0-6.0); HEMATOCRIT 48.4 % (42.0-52.0); IMMATURE GRAN ABSOLUTE AUTO 0.02 K/uL (0.00-0.05); IMMATURE GRAN PERCENT AUTO 0.4 % (0.0-0.4); LYMPHOCYTES ABSOLUTE AUTO 1.45 K/uL (1.00-4.80); LYMPHOCYTES PERCENT AUTO 29.1 % (24.0-44.0); MEAN CORPUSCULAR HEMOGLOBIN 33.7 pg (28.0-32.0); MEAN CORPUSCULAR HGB CONC 35.1 g/dL (32.0-36.0); MEAN CORPUSCULAR VOLUME 95.8 fL (83.0-99.0); MEAN PLATELET VOLUME 9.5 fL (9.4-12.4); MONOCYTES ABSOLUTE AUTO 0.88 K/uL (0.00-0.80); MONOCYTES PERCENT AUTO 17.6 % (0.0-8.0); NEUTROPHILS ABSOLUTE AUTO 2.37 K/uL (1.80-7.70); NEUTROPHILS PERCENT AUTO 47.5 % (41.0-71.0); PLATELET COUNT,PLT 194 K/uL (150-400); RED BLOOD CELL COUNT 5.05 M/uL (4.52-5.90); WHITE BLOOD CELL COUNT,WBC 4.99 K/uL (3.9-11.3)
[2024-07-14 06:20] LABS: CALCIUM 9.7 mg/dL (8.5-10.1); CARBON DIOXIDE,CO2 28.7 mmol/L (21.0-32.0); CREATININE 1.2 mg/dL (0.8-1.3); EST CRCL DRUG DOSING (CG) 83.39 mL/min; MAGNESIUM 1.8 mg/dL (1.8-2.4); POTASSIUM,K 4.5 mmol/L (3.5-5.1)
[2024-07-14] MEDS ORDERED: LORazepam 1 MG Tab PO PRN (10:18)
== END 2024-07-14 11:40 | disposition home or self-care (01) | DRG 897 ==
LOC: MW.ED 10:37 → MW.ICU 13:20 → MW.MS 07-12 11:41
PROVIDERS: ADMIT Internal Medicine; ATTEND Internal Medicine
DX: F10.932 Alcohol use, unspecified with withdrawal with perceptual disturbance (principal); N17.9 Acute kidney failure, unspecified; R56.9 Unspecified convulsions; E87.6 Hypokalemia; E86.0 Dehydration; E83.42 Hypomagnesemia; F41.9 Anxiety disorder, unspecified; I10 Essential (primary) hypertension; Z88.0 Allergy status to penicillin; Z90.5 Acquired absence of kidney; Z88.1 Allergy status to other antibiotic agents; Z86.718 Personal history of other venous thrombosis and embolism; Z79.01 Long term (current) use of anticoagulants; Z87.891 Personal history of nicotine dependence
CPT/HCPCS: 36415; 70450; 70450-26; 71045; 71045-26; 74018; 74018-26; 80048; 80053; 80076; 80305; 80307; 81001; 82150; 82550; 83690; 83735; 84100; 85025; 93005; 96361; 96374; 99285; 99285-25; A9270-GY; J1650; J2060; J2470; J3010; J3360; J3411; J3475; J3480; J3490; J7030

== ENCOUNTER 2024-09-01 23:17 | Emergency (ER) | payer SELFPAY | END 2024-09-01 23:29 | disposition left against medical advice (07) | LOC: MW.ED 23:17 | DX: Z53.21 Procedure and treatment not carried out due to patient leaving prior to being seen by health care provider (principal) ==

== ENCOUNTER 2024-09-01 23:51 | Emergency (ER) | payer SELFPAY | END 2024-09-02 00:35 | disposition left against medical advice (07) | LOC: MW.ED 23:51 | DX: Z53.21 Procedure and treatment not carried out due to patient leaving prior to being seen by health care provider (principal) | CPT/HCPCS: 70450; 70450-26; 70486; 70486-26 ==

== ENCOUNTER 2024-09-02 13:39 | Emergency (ER) | payer SELFPAY | END 2024-09-02 16:19 | disposition left against medical advice (07) | LOC: MW.ED 13:39 | DX: Z53.21 Procedure and treatment not carried out due to patient leaving prior to being seen by health care provider (principal) ==

== ENCOUNTER 2024-10-05 01:17 | Emergency (ER) | payer SELFPAY ==
[~2024-10-05 01:17] MED LIST: Haloperidol Lactate 5 MG/ML SDV ONE; diphenhydrAMINE 50 MG/ML SDV ONE
[2024-10-05] MEDS: Haloperidol Lactate 5 MG/ML SDV IM ONE (01:20)
[2024-10-05] MEDS: diphenhydrAMINE 50 MG/ML SDV IM ONE (01:20)
[2024-10-05 01:48] LABS: BASOPHILS ABSOLUTE AUTO 0.08 K/uL (0.00-0.20); BASOPHILS PERCENT AUTO 1.1 % (0.0-1.0); EOSINOPHILS ABSOLUTE AUTO 0.37 K/uL (0.00-0.45); EOSINOPHILS PERCENT AUTO 5.1 % (0.0-6.0); HEMATOCRIT 46.9 % (42.0-52.0); IMMATURE GRAN ABSOLUTE AUTO 0.03 K/uL (0.00-0.05); IMMATURE GRAN PERCENT AUTO 0.4 % (0.0-0.4); LYMPHOCYTES ABSOLUTE AUTO 3.76 K/uL (1.00-4.80); LYMPHOCYTES PERCENT AUTO 51.6 % (24.0-44.0); MEAN CORPUSCULAR HEMOGLOBIN 34.6 pg (28.0-32.0); MEAN CORPUSCULAR HGB CONC 34.1 g/dL (32.0-36.0); MEAN CORPUSCULAR VOLUME 101.3 fL (83.0-99.0); MEAN PLATELET VOLUME 9.5 fL (9.4-12.4); MONOCYTES ABSOLUTE AUTO 0.61 K/uL (0.00-0.80); MONOCYTES PERCENT AUTO 8.4 % (0.0-8.0); NEUTROPHILS ABSOLUTE AUTO 2.43 K/uL (1.80-7.70); NEUTROPHILS PERCENT AUTO 33.4 % (41.0-71.0); PLATELET COUNT,PLT 239 K/uL (150-400); RED BLOOD CELL COUNT 4.63 M/uL (4.52-5.90); WHITE BLOOD CELL COUNT,WBC 7.28 K/uL (3.9-11.3)
[2024-10-05 02:11] LABS: A/G RATIO 1.3 (0.9-1.6); ACETAMINOPHEN <2.0 ug/mL; ALANINE AMINOTRANSFERASE,ALT 29 IU/L (14-63); ALBUMIN 3.9 g/dL (3.4-5.0); ALKALINE PHOSPHATASE 81 U/L (46-116); ASPARTATE AMNIOTRANSFERASE,AST 23 IU/L (15-37); BILIRUBIN TOTAL 0.2 mg/dL (0.2-1.0); BLOOD UREA NITROGEN,BUN 13 mg/dL (7.0-18.0); CALCIUM 8.5 mg/dL (8.5-10.1); CARBON DIOXIDE,CO2 26.1 mmol/L (21.0-32.0); CHLORIDE,CL 106 mmol/L (98-107); CREATININE 1.4 mg/dL (0.8-1.3); GLUCOSE RANDOM 111 mg/dL (74-106); LIPASE 33 U/L (16-77); POTASSIUM,K 3.5 mmol/L (3.5-5.1); SALICYLATE 0.9 mg/dL (0.0-20.0); SODIUM,NA 146 mmol/L (136-148)
[2024-10-05 02:12] LABS: ESTIMATED GFR 69 mL/min (>60); ETHANOL BLOOD MEDICAL 324 mg/dL
[2024-10-05 02:21] LABS: APPEARANCE,URINE CLEAR; BILIRUBIN,URINE NEGATIVE (NEGATIVE); COLOR,URINE YELLOW; GLUCOSE,URINE NEGATIVE (NEGATIVE); KETONES,URINE NEGATIVE (NEGATIVE); LEUKOCYTE ESTERASE,URINE NEGATIVE (NEGATIVE); NITRITE,URINE NEGATIVE (NEGATIVE); OCCULT BLOOD,URINE NEGATIVE (NEGATIVE); PROTEIN,URINE TRACE mg/dL (NEGATIVE); UROBILINOGEN,URINE 0.2 EU/dL (<2.0)
[2024-10-05 02:28] LABS: BACTERIA,URINE NOT SEEN (NEGATIVE); EPITHELIAL CELLS,URINE NOT SEEN (NONE-FEW); RBC,URINE NONE SEEN (0-2/HPF); WBC,URINE NONE SEEN (0-5/HPF)
[2024-10-05 02:31] LABS: AMPHETAMINES SCREEN, URINE NEGATIVE (CUTOFF=500); BARBITURATE SCREEN,URINE NEGATIVE (CUTOFF=200); BENZODIAZEPINES SCREEN,URINE NEGATIVE (CUTOFF=150); BUPRENORPHINE SCREEN,URINE NEGATIVE (CUTOFF=10); METHADONE SCREEN, URINE NEGATIVE (CUTOFF=200); METHAMPHETAMINES SCREEN, URINE NEGATIVE (CUTOFF=500); OXYCODONE SCREEN,URINE NEGATIVE (CUT0FF=100); PCP SCREEN,URINE NEGATIVE (CUTOFF=25); THC SCREEN,URINE 20 NG/ML PRESUMPTIVE POSITIVE (CUTOFF=50)
== END 2024-10-05 02:46 ==
LOC: MW.ED 01:17
DX: F10.90 Alcohol use, unspecified, uncomplicated (principal); F12.90 Cannabis use, unspecified, uncomplicated; Y90.8 Blood alcohol level of 240 mg/100 ml or more; Z88.0 Allergy status to penicillin
CPT/HCPCS: 36415; 80053; 80143; 80179; 80305; 80307; 81001; 82947; 83690; 85025; 93005; 93010; 96372; 99283; 99285; J1200; J1630